=== PATIENT | female | born 2000 | race American Indian/Alaskan Native ===

== ENCOUNTER 2022-03-14 12:33 | Inpatient (IN) | payer OTHER ==
[2022-03-14] MEDS ORDERED: FAMOTIDINE 20 MG/2 ML VIAL IV STA (12:40)
[2022-03-14] MEDS ORDERED: SODIUM CHLORIDE 0.9% 1,000 ML IV STA (12:40)
[2022-03-14] MEDS ORDERED: ONDANSETRON 4 MG/2 ML VIAL IVP STA ×2 (12:40→17:04)
[2022-03-14] MEDS ORDERED: INSULIN REGULAR 100 UNIT/ML VIAL (IV) IV ONE (12:41)
--- NOTE | 2022-03-14 12:48 | ED ---
General Adult HPI - General Chief complaint: Recheck/Abnormal Lab/Rx Stated complaint: hyperglycemia Time Seen by Provider: 03/14/22 12:35 Source: patient, EMS, RN notes reviewed Mode of arrival: EMS Limitations: no limitations - History of Present Illness Initial comments: Patient is a pleasant 22-year-old female presenting to the emergency department with concerns with nausea and vomiting. Onset of symptoms was the past couple of days. Patient has not recently checked her blood sugar. Patient has had similar episodes dozens of times previously associated with DKA and is concerned this is going on again. Patient requests insulin. Patient has nausea and vomiting that remains. No abdominal pain. Otherwise no recent illness.. Patient afebrile - Related Data Home Medications Medication Instructions Recorded Confirmed Insulin Glargine,Hum.rec.anlog 25 units SQ DAILY 03/14/22 03/14/22 [Lantus Solostar Pen] Insulin Lispro [humaLOG Kwikpen] See Protocol SQ TID-W/MEALS 03/14/22 03/14/22 Allergies Allergy/AdvReac Type Severity Reaction Status Date / Time No Known Allergies Allergy Verified 03/14/22 15:02 Review of Systems ROS Statement: Those systems with pertinent positive or pertinent negative responses have been documented in the HPI. ROS Other: All systems not noted in ROS Statement are negative. Constitutional: Denies: fever Eyes: Denies: eye pain ENT: Denies: ear pain Respiratory: Denies: cough Cardiovascular: Denies: chest pain Endocrine: Denies: fatigue Gastrointestinal: Reports: nausea, vomiting Genitourinary: Denies: dysuria Musculoskeletal: Denies: back pain Skin: Denies: rash Neurological: Denies: weakness Past Medical History Past Medical History: Diabetes Mellitus History of Any Multi-Drug Resistant Organisms: None Reported Additional Past Surgical History / Comment(s): Facial Past Psychological History: No Psychological Hx Reported, Schizoaffective Disorder Smoking Status: Current some day smoker Past Alcohol Use History: None Reported Past Drug Use History: Marijuana General Exam Limitations: no limitations General appearance: alert, in no apparent distress Head exam: Present: normocephalic Eye exam: Present: normal appearance ENT exam: Present: normal oropharynx Neck exam: Present: normal inspection Respiratory exam: Present: normal lung sounds bilaterally Cardiovascular Exam: Present: tachycardia GI/Abdominal exam: Present: soft. Absent: tenderness Extremities exam: Present: normal inspection Neurological exam: Present: alert Psychiatric exam: Present: normal affect, normal mood Skin exam: Present: normal color Course Vital Signs 03/14/22 12:37 Temperature 97.8 F Pulse Rate 127 H Respiratory 20 Rate Blood Pressure 115/75 O2 Sat by Pulse 99 Oximetry Medical Decision Making - Medical Decision Making Patient reevaluated and updated. Case was discussed with Dr. Morejon, who will admit covering hospital call. - Lab Data Result diagrams: 03/14/22 13:24 03/14/22 13:24 Lab Results 03/14/22 03/14/22 Range/Units 13:24 13:24 WBC 14.4 H (3.8-10.6) k/uL RBC 4.51 (3.80-5.40) m/uL Hgb 13.3 (11.4-16.0) gm/dL Hct 39.5 (34.0-46.0) % MCV 87.7 (80.0-100.0) fL MCH 29.4 (25.0-35.0) pg MCHC 33.5 (31.0-37.0) g/dL RDW 13.6 (11.5-15.5) % Plt Count 354 (150-450) k/uL MPV 9.1 Neutrophils % 79 % Lymphocytes % 16 % Monocytes % 3 % Eosinophils % 1 % Basophils % 0 % Neutrophils # 11.3 H (1.3-7.7) k/uL Lymphocytes # 2.3 (1.0-4.8) k/uL Monocytes # 0.4 (0-1.0) k/uL Eosinophils # 0.1 (0-0.7) k/uL Basophils # 0.1 (0-0.2) k/uL Sodium 133 L (137-145) mmol/L Potassium 4.7 (3.5-5.1) mmol/L Chloride 97 L (98-107) mmol/L Carbon Dioxide 15 L (22-30) mmol/L Anion Gap 21 mmol/L BUN 24 H (7-17) mg/dL Creatinine 0.73 (0.52-1.04) mg/dL Est GFR (CKD-EPI)AfAm >90 (>60 ml/min/1.73 sqM) Est GFR (CKD-EPI)NonAf >90 (>60 ml/min/1.73 sqM) Glucose 509 H* (74-99) mg/dL Calcium 8.9 (8.4-10.2) mg/dL Total Bilirubin 0.9 (0.2-1.3) mg/dL AST 18 (14-36) U/L ALT 13 (4-34) U/L Alkaline Phosphatase 75 (38-126) U/L Total Protein 6.9 (6.3-8.2) g/dL Albumin 4.5 (3.5-5.0) g/dL Acetone, Qual Positive (Negative) - Radiology Data Radiology results: image reviewed (Chest x-ray shows no acute process) Critical Care Time Critical Care Time: Yes Total Critical Care Time: 31 Disposition Clinical Impression: Diabetic ketoacidosis Disposition: ADMITTED IP TO THIS [facility] Condition: Serious Is patient prescribed a controlled substance at d/c from ED?: No Referrals: None,Stated [Primary Care Provider] - 1-2 days Time of Disposition: 15:29
[2022-03-14 13:34] LABS: Basophils # (A) 0.1 k/uL (0-0.2); Basophils % (A) 0 %; Eosinophils # (A) 0.1 k/uL (0-0.7); Eosinophils % (A) 1 %; HCT 39.5 % (34.0-46.0); HGB 13.3 gm/dL (11.4-16.0); Lymphocytes # (A) 2.3 k/uL (1.0-4.8); Lymphocytes % (A) 16 %; MCH 29.4 pg (25.0-35.0); MCHC 33.5 g/dL (31.0-37.0); MCV 87.7 fL (80.0-100.0); Mean Platelet Volume 9.1; Monocytes # (A) 0.4 k/uL (0-1.0); Monocytes % (A) 3 %; Neutrophils # (A) 11.3 k/uL (1.3-7.7); Neutrophils % (A) 79 %; Platelet Count 354 k/uL (150-450); RBC 4.51 m/uL (3.80-5.40); RDW 13.6 % (11.5-15.5); WBC 14.4 k/uL (3.8-10.6)
[2022-03-14 13:47] LABS: ALT 13 U/L (4-34); AST 18 U/L (14-36); African American GFR (CKD) >90 (>60 ml/min/1.73 sqM); Albumin 4.5 g/dL (3.5-5.0); Alkaline Phosphatase 75 U/L (38-126); Anion Gap 21 mmol/L; Blood Urea Nitrogen 24 mg/dL (7-17); Calcium 8.9 mg/dL (8.4-10.2); Carbon Dioxide 15 mmol/L (22-30); Chloride 97 mmol/L (98-107); Non-African American GFR(CKD) >90 (>60 ml/min/1.73 sqM); Potassium 4.7 mmol/L (3.5-5.1); Sodium 133 mmol/L (137-145); Total Bilirubin 0.9 mg/dL (0.2-1.3); Total Protein 6.9 g/dL (6.3-8.2)
[2022-03-14 13:48] LABS: Glucose 509 mg/dL (74-99)
--- NOTE | 2022-03-14 14:01 | XR ---
EXAMINATION TYPE: XR chest 2V DATE OF EXAM: 03/14/2022 COMPARISON: NONE HISTORY: Weakness TECHNIQUE: Frontal and lateral views of the chest are obtained. FINDINGS: There is no focal air space opacity, pleural effusion, or pneumothorax seen. The cardiac silhouette size is within normal limits. The osseous structures are intact. IMPRESSION: No acute cardiopulmonary process.
[2022-03-14] MEDS ORDERED: SODIUM CHLORIDE 0.9% 1,000 ML IV ONE (15:27)
[2022-03-14] MEDS ORDERED: INSULIN REGULAR 100 UNIT in SODIUM CHLORIDE 0.9% 100 ML IV SCH (15:30)
[2022-03-14 16:13] LABS: African American GFR (CKD) >90 (>60 ml/min/1.73 sqM); Anion Gap 17 mmol/L; Blood Urea Nitrogen 22 mg/dL (7-17); Carbon Dioxide 14 mmol/L (22-30); Chloride 105 mmol/L (98-107); Glucose 323 mg/dL (74-99); Non-African American GFR(CKD) >90 (>60 ml/min/1.73 sqM); Potassium 4.8 mmol/L (3.5-5.1); Sodium 136 mmol/L (137-145)
[2022-03-14 16:20] LABS: Glucose,Whole Blood 340 mg/dL (70-110)
[2022-03-14 16:39] LABS: Glucose,Whole Blood 559 mg/dL (70-110)
[2022-03-14 16:51] LABS: Glucose,Whole Blood 428 mg/dL (70-110)
[2022-03-14 16:51] LABS: Glucose,Whole Blood 524 mg/dL (70-110)
[2022-03-14 17:01] LABS: Glucose,Whole Blood 362 mg/dL (70-110)
[2022-03-14 17:19] LABS: Glucose,Whole Blood 344 mg/dL (70-110)
[2022-03-14 17:21] LABS: Glucose,Whole Blood 348 mg/dL (70-110)
[2022-03-14 17:29] LABS: Glucose,Whole Blood 317 mg/dL (70-110)
[2022-03-14] MEDS: SODIUM CHLORIDE 0.9% 1,000 ML IV SCH (17:30)
[2022-03-14 17:36] LABS: Glucose,Whole Blood 265 mg/dL (70-110)
[2022-03-14 17:54] LABS: Glucose,Whole Blood 257 mg/dL (70-110)
[2022-03-14 18:21] LABS: Glucose,Whole Blood 255 mg/dL (70-110)
[2022-03-14 18:21] LABS: Glucose,Whole Blood 229 mg/dL (70-110)
[2022-03-14] MEDS ORDERED: diphenhydrAMINE 50 MG/ML 1 ML VIAL IVP STA (18:28)
[2022-03-14 18:37] LABS: Glucose,Whole Blood 205 mg/dL (70-110)
[2022-03-14 18:42] LABS: Glucose,Whole Blood 151 mg/dL (70-110)
[2022-03-14] MEDS: DEXTROSE 5%-0.45% NACL 1,000 ML IV SCH (19:07)
[2022-03-14 19:12] LABS: Glucose,Whole Blood 133 mg/dL (70-110)
[2022-03-14 19:18] LABS: ALT 16 U/L (4-34); AST 22 U/L (14-36); African American GFR (CKD) >90 (>60 ml/min/1.73 sqM); Albumin 4.7 g/dL (3.5-5.0); Alkaline Phosphatase 70 U/L (38-126); Anion Gap 16 mmol/L; Blood Urea Nitrogen 22 mg/dL (7-17); Calcium 9.5 mg/dL (8.4-10.2); Carbon Dioxide 15 mmol/L (22-30); Chloride 110 mmol/L (98-107); Glucose 158 mg/dL (74-99); Non-African American GFR(CKD) >90 (>60 ml/min/1.73 sqM); Potassium 3.7 mmol/L (3.5-5.1); Sodium 141 mmol/L (137-145); Total Bilirubin 0.7 mg/dL (0.2-1.3); Total Protein 7.4 g/dL (6.3-8.2)
[2022-03-14 19:39] LABS: Glucose,Whole Blood 151 mg/dL (70-110)
[2022-03-14 19:39] LABS: Glucose,Whole Blood 130 mg/dL (70-110)
[2022-03-14] MEDS: D5-0.45% NACL WITH KCL 20MEQ/L 1,000 ML IV SCH (19:40)
[2022-03-14 20:10] LABS: Glucose,Whole Blood 155 mg/dL (70-110)
[2022-03-14 20:32] LABS: Glucose,Whole Blood 160 mg/dL (70-110)
[2022-03-14] MEDS: INSULIN REGULAR 100 UNIT in SODIUM CHLORIDE 0.9% 100 ML IV SCH (20:36)
[2022-03-14 21:06] LABS: Glucose,Whole Blood 175 mg/dL (70-110)
[2022-03-14 21:57] LABS: African American GFR (CKD) >90 (>60 ml/min/1.73 sqM); Anion Gap 17 mmol/L; Blood Urea Nitrogen 21 mg/dL (7-17); Carbon Dioxide 14 mmol/L (22-30); Chloride 109 mmol/L (98-107); Glucose 170 mg/dL (74-99); Non-African American GFR(CKD) >90 (>60 ml/min/1.73 sqM); Phosphorus 1.8 mg/dL (2.5-4.5); Potassium 3.7 mmol/L (3.5-5.1); Sodium 140 mmol/L (137-145)
[2022-03-14 22:17] LABS: Glucose,Whole Blood 202 mg/dL (70-110)
[2022-03-14 23:17] LABS: Glucose,Whole Blood 208 mg/dL (70-110)
[2022-03-15 00:12] LABS: Glucose,Whole Blood 225 mg/dL (70-110)
[2022-03-15] MEDS: SODIUM CHLORIDE 0.9% 1,000 ML IV SCH ×7 (00:43→17:32)
[2022-03-15] MEDS: D5-0.45% NACL WITH KCL 20MEQ/L 1,000 ML IV SCH ×4 (00:43→22:46)
[2022-03-15 01:22] LABS: Glucose,Whole Blood 227 mg/dL (70-110)
[2022-03-15 02:20] LABS: Glucose,Whole Blood 217 mg/dL (70-110)
[2022-03-15] MEDS: diphenhydrAMINE 50 MG/ML 1 ML VIAL IVP PRN ×4 (02:45→23:00)
[2022-03-15] MEDS: ONDANSETRON 4 MG/2 ML VIAL IVP PRN ×3 (02:45→16:53)
[2022-03-15 02:46] LABS: African American GFR (CKD) >90 (>60 ml/min/1.73 sqM); Anion Gap 15 mmol/L; Blood Urea Nitrogen 18 mg/dL (7-17); Calcium 8.4 mg/dL (8.4-10.2); Carbon Dioxide 14 mmol/L (22-30); Chloride 108 mmol/L (98-107); Glucose 221 mg/dL (74-99); Non-African American GFR(CKD) >90 (>60 ml/min/1.73 sqM); Potassium 4.2 mmol/L (3.5-5.1); Sodium 137 mmol/L (137-145)
--- NOTE | 2022-03-15 03:18 | P.HPIM ---
History of Present Illness H&P Date: 03/14/22 Chief Complaint: Nausea and vomiting Patient is a 22-year-old female with a known history of diabetes type 1 on insulin KwikPen at home, currently a smoker and occasional marijuana use presents to ER with complaints of nausea vomiting for the past 2 days. Apparently patient ran out of her long-acting insulin. Patient has not checked her blood sugar recently. Patient was counseled about DKA and presented to ER. Vomitus mainly nonbilious. Patient denies any complaints of abdominal pain. No fever no chills. No diarrhea. No headache or dizziness or lightheadedness. On admission chest x-ray showed no acute cardiopulmonary process Laboratory showed WBC 14.4 hemoglobin 13.3 and platelets 354 Sodium 133 potassium 4.7 chloride 97 bicarb is 15 BUN 24 and creatinine 0.73 anion gap 21 is 1.2 liver enzymes are not elevated and blood sugar was 409. Patient was started on insulin drip in the ER. Apparently patient was given higher dose of regular insulin by mistake in the ER. Patient is being monitored closely for any hypoglycemic episodes. Review of Systems Constitutional: Patient denies any fever or chills . no Generalized weakness. Abdomen: Patient is complaining of nausea and vomiting. No abd. pain Cardiovascular: Patient denies any chest pain or short of breath no palpitations. Respiratory: patient denied any cough . no sputum production. No shortness of breath Neurologic: Patient denied any numbness or tingling headache. Musculoskeletal: Patient denies any complaints of joint swelling or deformity. Skin: Negative Psychiatric: Negative Endocrine: No heat or cold intolerance. No recent weight gain. Genitourinary: No dysuria or hematuria. All other 14 point ROS negative except the above Past Medical History Past Medical History: Diabetes Mellitus History of Any Multi-Drug Resistant Organisms: None Reported Additional Past Surgical History / Comment(s): Facial Past Psychological History: No Psychological Hx Reported, Schizoaffective Disorder Smoking Status: Current some day smoker Past Alcohol Use History: None Reported Past Drug Use History: Marijuana Medications and Allergies Home Medications Medication Instructions Recorded Confirmed Type Insulin Glargine,Hum.rec.anlog 25 units SQ DAILY 03/14/22 03/14/22 History [Lantus Solostar Pen] Insulin Lispro [humaLOG Kwikpen] See Protocol SQ TID-W/MEALS 03/14/22 03/14/22 History Allergies Allergy/AdvReac Type Severity Reaction Status Date / Time No Known Allergies Allergy Verified 03/14/22 15:02 Physical Exam Vitals: Vital Signs Temp Pulse Resp BP Pulse Ox 03/14/22 16:16 99 18 135/73 100 03/14/22 12:37 97.8 F 127 H 20 115/75 99 Intake and Output 03/14/22 03/14/22 03/14/22 06:59 14:59 22:59 Other: Weight 49.895 kg PHYSICAL EXAMINATION: Patient is lying in the bed, Distress due to nausea and constant retching, awake alert and oriented.. HEENT: Normocephalic. Neck is supple. Pupils reactive. Nostrils clear. Oral cavity is moist. Neck reveals no JVD, carotid bruits, or thyromegaly. CHEST EXAMINATION: Trachea is central. Symmetrical expansion. Lung sheridan clear to auscultation and percussion. CARDIAC: Normal S1, S2 with no gallops. No murmurs ABDOMEN: Soft. Bowel sounds present. Nontender. No organomegaly. No abdominal bruits. Extremities: reveal no edema. No clubbing or cyanosis Neurologically awake, alert, oriented x3 with well-coordinated movements. No focal deficits noted Skin: No rash or skin lesions. Psychiatric: Coperative. Nonsuicidal, Musculoskeletal: No joint swelling or deformity. Normal range of motion. Results CBC & Chem 7: 03/14/22 13:24 03/15/22 02:06 Labs: Abnormal Lab Results - Last 24 Hours (Table) 03/14/22 03/14/22 03/14/22 Range/Units 13:24 13:24 15:47 WBC 14.4 H (3.8-10.6) k/uL Neutrophils # 11.3 H (1.3-7.7) k/uL Sodium 133 L 136 L (137-145) mmol/L Chloride 97 L (98-107) mmol/L Carbon Dioxide 15 L 14 L (22-30) mmol/L BUN 24 H 22 H (7-17) mg/dL Glucose 509 H* 323 H (74-99) mg/dL POC Glucose (mg/dL) (70-110) mg/dL 03/14/22 03/14/22 03/14/22 Range/Units 16:09 16:36 16:39 WBC (3.8-10.6) k/uL Neutrophils # (1.3-7.7) k/uL Sodium (137-145) mmol/L Chloride (98-107) mmol/L Carbon Dioxide (22-30) mmol/L BUN (7-17) mg/dL Glucose (74-99) mg/dL POC Glucose (mg/dL) 340 H 559 H 524 H (70-110) mg/dL 03/14/22 03/14/22 03/14/22 Range/Units 16:49 17:00 17:09 WBC (3.8-10.6) k/uL Neutrophils # (1.3-7.7) k/uL Sodium (137-145) mmol/L Chloride (98-107) mmol/L Carbon Dioxide (22-30) mmol/L BUN (7-17) mg/dL Glucose (74-99) mg/dL POC Glucose (mg/dL) 428 H 362 H 344 H (70-110) mg/dL 03/14/22 03/14/22 03/14/22 Range/Units 17:19 17:27 17:35 WBC (3.8-10.6) k/uL Neutrophils # (1.3-7.7) k/uL Sodium (137-145) mmol/L Chloride (98-107) mmol/L Carbon Dioxide (22-30) mmol/L BUN (7-17) mg/dL Glucose (74-99) mg/dL POC Glucose (mg/dL) 348 H 317 H 265 H (70-110) mg/dL 03/14/22 03/14/22 03/14/22 Range/Units 17:47 17:58 18:10 WBC (3.8-10.6) k/uL Neutrophils # (1.3-7.7) k/uL Sodium (137-145) mmol/L Chloride (98-107) mmol/L Carbon Dioxide (22-30) mmol/L BUN (7-17) mg/dL Glucose (74-99) mg/dL POC Glucose (mg/dL) 257 H 255 H 229 H (70-110) mg/dL 03/14/22 03/14/22 03/14/22 Range/Units 18:24 18:40 19:04 WBC (3.8-10.6) k/uL Neutrophils # (1.3-7.7) k/uL Sodium (137-145) mmol/L Chloride 110 H (98-107) mmol/L Carbon Dioxide 15 L (22-30) mmol/L BUN 22 H (7-17) mg/dL Glucose 158 H (74-99) mg/dL POC Glucose (mg/dL) 205 H 151 H (70-110) mg/dL 03/14/22 03/14/22 03/14/22 Range/Units 19:10 19:20 19:37 WBC (3.8-10.6) k/uL Neutrophils # (1.3-7.7) k/uL Sodium (137-145) mmol/L Chloride (98-107) mmol/L Carbon Dioxide (22-30) mmol/L BUN (7-17) mg/dL Glucose (74-99) mg/dL POC Glucose (mg/dL) 133 H 151 H 130 H (70-110) mg/dL 03/14/22 03/14/22 03/14/22 Range/Units 20:09 20:30 21:04 WBC (3.8-10.6) k/uL Neutrophils # (1.3-7.7) k/uL Sodium (137-145) mmol/L Chloride (98-107) mmol/L Carbon Dioxide (22-30) mmol/L BUN (7-17) mg/dL Glucose (74-99) mg/dL POC Glucose (mg/dL) 155 H 160 H 175 H (70-110) mg/dL Thrombosis Risk Factor Assmnt - DVT/VTE Prophylaxis DVT/VTE Prophylaxis: Pharmacologic Prophylaxis ordered Assessment and Plan Assessment: Acute diabetic ketoacidosis due to lack of insulin use Intractable nausea and vomiting Anion gap metabolic acidosis Hypovolemic hyponatremia Leukocytosis likely reactive Hyperglycemia with uncontrolled diabetes type 1 DVT prophylaxis with heparin subcu Plan: Patient will be continued on insulin drip and IV hydration with normal saline. Patient was given 2 L fluid bolus in the ER. Monitor blood sugar closely. Continue with electrolytes every 4 hourly until anion gap closes. Symptomatic management for nausea and vomiting with Zofran and Pepcid. Continue to follow closely. Discussed with the patient at bedside in detail. Time with Patient: Greater than 30
[2022-03-15 03:21] LABS: Glucose,Whole Blood 190 mg/dL (70-110)
[2022-03-15 04:20] LABS: Glucose,Whole Blood 218 mg/dL (70-110)
[2022-03-15 05:38] LABS: Glucose,Whole Blood 223 mg/dL (70-110)
[2022-03-15 06:24] LABS: Glucose,Whole Blood 214 mg/dL (70-110)
[2022-03-15 07:36] LABS: Glucose,Whole Blood 235 mg/dL (70-110)
[2022-03-15 08:33] LABS: Glucose,Whole Blood 246 mg/dL (70-110)
[2022-03-15 09:19] LABS: Basophils % (A) 0 %; Eosinophils % (A) 0 %; HCT 34.9 % (34.0-46.0); HGB 11.9 gm/dL (11.4-16.0); Lymphocytes # (A) 1.5 k/uL (1.0-4.8); Lymphocytes % (A) 13 %; MCH 29.8 pg (25.0-35.0); MCHC 34.2 g/dL (31.0-37.0); MCV 87.2 fL (80.0-100.0); Mean Platelet Volume 8.6; Monocytes # (A) 0.5 k/uL (0-1.0); Monocytes % (A) 4 %; Neutrophils # (A) 9.9 k/uL (1.3-7.7); Neutrophils % (A) 82 %; Platelet Count 318 k/uL (150-450); RDW 13.4 % (11.5-15.5)
[2022-03-15] MEDS: FAMOTIDINE 20 MG/2 ML VIAL IV SCH ×2 (09:26→23:00)
[2022-03-15 09:33] LABS: Glucose,Whole Blood 221 mg/dL (70-110)
[2022-03-15 09:42] LABS: African American GFR (CKD) >90 (>60 ml/min/1.73 sqM); Anion Gap 14 mmol/L; Blood Urea Nitrogen 11 mg/dL (7-17); Carbon Dioxide 16 mmol/L (22-30); Chloride 106 mmol/L (98-107); Glucose 236 mg/dL (74-99); Non-African American GFR(CKD) >90 (>60 ml/min/1.73 sqM); Potassium 4.1 mmol/L (3.5-5.1); Sodium 136 mmol/L (137-145)
[2022-03-15] MEDS: HEPARIN SODIUM,PORCINE/PF 5,000 UNIT/0.5 ML SYRINGE SQ SCH ×2 (09:45→23:00)
[2022-03-15 10:41] LABS: Glucose,Whole Blood 222 mg/dL (70-110)
[2022-03-15 11:32] LABS: Glucose,Whole Blood 210 mg/dL (70-110)
[2022-03-15 12:27] VITALS: BMI 21.4
[2022-03-15 12:34] LABS: Glucose,Whole Blood 230 mg/dL (70-110)
[2022-03-15 14:00] LABS: Glucose,Whole Blood 184 mg/dL (70-110)
[2022-03-15 14:57] LABS: Glucose,Whole Blood 220 mg/dL (70-110)
[2022-03-15 16:01] LABS: Glucose,Whole Blood 198 mg/dL (70-110)
[2022-03-15 16:35] LABS: African American GFR (CKD) >90 (>60 ml/min/1.73 sqM); Anion Gap 12 mmol/L; Blood Urea Nitrogen 5 mg/dL (7-17); Calcium 8.2 mg/dL (8.4-10.2); Carbon Dioxide 16 mmol/L (22-30); Chloride 106 mmol/L (98-107); Glucose 210 mg/dL (74-99); Non-African American GFR(CKD) >90 (>60 ml/min/1.73 sqM); Potassium 3.8 mmol/L (3.5-5.1); Sodium 134 mmol/L (137-145)
[2022-03-15 17:01] LABS: Glucose,Whole Blood 181 mg/dL (70-110)
[2022-03-15] MEDS: DEXTROSE 5%-0.45% NACL 1,000 ML IV SCH (17:31)
[2022-03-15 18:12] LABS: Glucose,Whole Blood 185 mg/dL (70-110)
[2022-03-15 19:04] LABS: Glucose,Whole Blood 197 mg/dL (70-110)
[2022-03-15 20:12] LABS: Glucose,Whole Blood 200 mg/dL (70-110)
[2022-03-15 20:17] LABS: African American GFR (CKD) >90 (>60 ml/min/1.73 sqM); Anion Gap 10 mmol/L; Blood Urea Nitrogen 4 mg/dL (7-17); Carbon Dioxide 18 mmol/L (22-30); Chloride 106 mmol/L (98-107); Glucose 198 mg/dL (74-99); Non-African American GFR(CKD) >90 (>60 ml/min/1.73 sqM); Potassium 3.5 mmol/L (3.5-5.1); Sodium 134 mmol/L (137-145)
[2022-03-15 21:32] LABS: Glucose,Whole Blood 191 mg/dL (70-110)
[2022-03-15 23:00] LABS: Glucose,Whole Blood 179 mg/dL (70-110)
[2022-03-16 01:16] LABS: African American GFR (CKD) >90 (>60 ml/min/1.73 sqM); Anion Gap 12 mmol/L; Blood Urea Nitrogen 3 mg/dL (7-17); Carbon Dioxide 17 mmol/L (22-30); Chloride 105 mmol/L (98-107); Glucose 184 mg/dL (74-99); Non-African American GFR(CKD) >90 (>60 ml/min/1.73 sqM); Potassium 3.5 mmol/L (3.5-5.1); Sodium 134 mmol/L (137-145)
[2022-03-16 03:56] LABS: Glucose,Whole Blood 184 mg/dL (70-110)
[2022-03-16 05:54] LABS: Glucose,Whole Blood 199 mg/dL (70-110)
[2022-03-16] MEDS: D5-0.45% NACL WITH KCL 20MEQ/L 1,000 ML IV SCH ×2 (06:23→21:04)
[2022-03-16 06:30] LABS: Glucose,Whole Blood 183 mg/dL (70-110)
--- NOTE | 2022-03-16 06:56 | PN ---
PROGRESS NOTE SUBJECTIVE: This is a 22-year-old woman who was admitted with diabetic ketoacidosis, still on insulin drip at this time. No chest pain. No palpitations. No fever. PHYSICAL EXAMINATION: VITAL SIGNS: Pulse is 90, blood pressure 120/60, respirations 15. CHEST: Clear to auscultation. ABDOMEN: Soft. NERVOUS SYSTEM: No focal deficits. LABS: Reviewed. ASSESSMENT: 1. Acute diabetic ketoacidosis. 2. Intractable nausea and vomiting. 3. Electrolyte imbalance. 4. Multiple medical issues. RECOMMENDATIONS: Recommend to continue current management and symptomatic treatment. The patient apparently did not have Lantus for 2 days. We will continue to monitor. Transition orders will be given. Guarded prognosis. Further recommendations to follow. MMODL / IJN: [id number] /
[2022-03-16 07:09] LABS: Glucose,Whole Blood 162 mg/dL (70-110)
[2022-03-16] MEDS: ONDANSETRON 4 MG/2 ML VIAL IVP PRN ×3 (09:06→21:03)
[2022-03-16] MEDS: diphenhydrAMINE 50 MG/ML 1 ML VIAL IVP PRN ×3 (09:06→21:03)
[2022-03-16] MEDS: FAMOTIDINE 20 MG/2 ML VIAL IV SCH ×2 (09:06→21:03)
[2022-03-16] MEDS: INSULIN DETEMIR (LEVEMIR) 100 UNIT/ML SYR SQ SCH (09:06)
[2022-03-16] MEDS: HEPARIN SODIUM,PORCINE/PF 5,000 UNIT/0.5 ML SYRINGE SQ SCH ×2 (09:12→21:04)
[2022-03-16] MEDS: INSULIN REGULAR 100 UNIT in SODIUM CHLORIDE 0.9% 100 ML IV SCH (10:44)
[2022-03-16 12:20] LABS: Glucose,Whole Blood 165 mg/dL (70-110)
[2022-03-16] MEDS: INSULIN ASPART (NovoLOG) 100 UNIT/ML VIAL SQ SCH ×4 (12:20→20:50)
[2022-03-16] MEDS ORDERED: ACETAMINOPHEN TAB 325 MG TAB PO PRN (13:47)
[2022-03-16] MEDS: PANTOPRAZOLE 40 MG/10 ML VIAL IVP SCH ×2 (15:16→21:13)
--- NOTE | 2022-03-16 15:43 | P.PN ---
Subjective Progress Note Date: 03/16/22 This is a 22-year-old female who was recently admitted with DKA and was placed on insulin drip. Transition orders placed today to resume home medications and long acting along with continued Accu-Cheks before meals and at bedtime. Diet was initiated although patient continues to report abdominal discomfort and some nausea. Will continue some fluid hydration and monitoring Accu-Cheks closely with possible discharge in 24 hours. Encouraged oral intake with slow small frequent meals. Patient is afebrile denies chest pain or shortness of breath. Patient denies any vomiting although is having intermittent abdominal pain with some nausea. Will continue Zofran as needed. Review of systems: Constitutional: No reports of fatigue, fever, or chills Cardiovascular: No reports of chest pain or palpitations Respiratory: No reports of shortness of breath or cough GI: reports of nausea, no reports of of vomiting, reports some abdominal pain : No reports of dysuria or retention Neurovascular: reports of generalized weakness, All medications have been reviewed PHYSICAL EXAMINATION: GENERAL: The patient is alert and oriented x4, Well developed, well nourished. HEENT: Pupils are round and equally reacting to light. EOMI. no scleral icterus. No conjunctival pallor. Normocephalic, atraumatic. No pharyngeal erythema. No thyromegaly. CARDIOVASCULAR: S1 and S2 muffled PULMONARY: diminished breath sounds bilaterally with no wheezing or rhonchi noted. ABDOMEN: soft. tender on exam. non-distended, normoactive bowel sounds. No palpable organomegaly. MUSCULOSKELETAL: No joint swelling or deformity. EXTREMITIES: No cyanosis, clubbing, or pedal edema. NEUROLOGICAL: Gross neurological examination did not reveal any focal deficits. SKIN: No rashes. Assessment: Acute diabetic ketoacidosis Intractable nausea and vomiting secondary to above Electrolyte imbalance Diabetes mellitus type 1, insulin-dependent, uncontrolled with hyperglycemia GI prophylaxis DVT prophylaxis Full code Plan: Recommend to continue with current medications and management of DKA. Labs reviewed and improved and will initiate transition orders and resume home dose medications along with Accu-Cheks before meals and at bedtime and sliding scale. Patient with some continued nausea with no vomiting and abdominal discomfort will slowly resume diet and continue gentle IV hydration for now. Recommend close monitoring overnight and tolerance to diet with possible discharge in 24 hours. Patient will need insulins along with testing supplies and strips on discharge. Due to multiple, looks medical issues, prognosis is guarded. The impression and plan of care has been dictated by Ann Lugo, nurse practitioner as directed. Dr. Bradley MD I have performed a history and examination and MDM of this patient, discussed the same with the dictator, and agree with the dictator's assessment and plan as written ,documented as a scribe. Based on total visit time, I have performed more than 50% of the visit. Any additional findings or plans will be noted. Objective - Vital Signs Vital signs: Vital Signs Temp 98.0 F 03/16/22 12:21 Pulse 88 03/16/22 12:21 Resp 16 03/16/22 12:21 BP 134/67 03/16/22 12:21 Pulse Ox 97 03/16/22 12:21 FiO2 Intake & Output 03/15/22 03/16/22 03/16/22 18:59 06:59 18:59 Intake Total 32.298 24.066 15.792 Balance 32.298 24.066 15.792 Weight 49.895 kg Intake: Intake, IV Titration 32.298 24.066 15.792 Amount Insulin Regular 100 unit 32.298 24.066 15.792 In Sodium Chloride 0.9% 100 ml @ 0.1 UNITS/KG/HR 5.039 mls/hr IV .Q20H3M [facility]USTINO Rx#:[id number] Oral 0 0 Other: Voiding Method Toilet Toilet Toilet # Voids 2 1 - Labs CBC & Chem 7: 03/15/22 08:25 03/16/22 00:15 Labs: Abnormal Lab Results - Last 24 Hours (Table) 03/15/22 03/15/22 03/15/22 Range/Units 13:59 14:56 15:58 Sodium (137-145) mmol/L Carbon Dioxide (22-30) mmol/L BUN (7-17) mg/dL Creatinine (0.52-1.04) mg/dL Glucose (74-99) mg/dL POC Glucose (mg/dL) 184 H 220 H 198 H (70-110) mg/dL Calcium (8.4-10.2) mg/dL Phosphorus (2.5-4.5) mg/dL 03/15/22 03/15/22 03/15/22 Range/Units 16:07 17:00 18:11 Sodium 134 L (137-145) mmol/L Carbon Dioxide 16 L (22-30) mmol/L BUN 5 L (7-17) mg/dL Creatinine 0.43 L (0.52-1.04) mg/dL Glucose 210 H (74-99) mg/dL POC Glucose (mg/dL) 181 H 185 H (70-110) mg/dL Calcium 8.2 L (8.4-10.2) mg/dL Phosphorus (2.5-4.5) mg/dL 03/15/22 03/15/22 03/15/22 Range/Units 19:02 19:44 19:44 Sodium 134 L (137-145) mmol/L Carbon Dioxide 18 L (22-30) mmol/L BUN 4 L (7-17) mg/dL Creatinine 0.42 L (0.52-1.04) mg/dL Glucose 198 H (74-99) mg/dL POC Glucose (mg/dL) 197 H (70-110) mg/dL Calcium (8.4-10.2) mg/dL Phosphorus 2.0 L (2.5-4.5) mg/dL 03/15/22 03/15/22 03/15/22 Range/Units 20:10 21:30 22:58 Sodium (137-145) mmol/L Carbon Dioxide (22-30) mmol/L BUN (7-17) mg/dL Creatinine (0.52-1.04) mg/dL Glucose (74-99) mg/dL POC Glucose (mg/dL) 200 H 191 H 179 H (70-110) mg/dL Calcium (8.4-10.2) mg/dL Phosphorus (2.5-4.5) mg/dL 03/16/22 03/16/22 03/16/22 Range/Units 00:15 00:15 03:44 Sodium 134 L (137-145) mmol/L Carbon Dioxide 17 L (22-30) mmol/L BUN 3 L (7-17) mg/dL Creatinine 0.43 L (0.52-1.04) mg/dL Glucose 184 H (74-99) mg/dL POC Glucose (mg/dL) 184 H (70-110) mg/dL Calcium (8.4-10.2) mg/dL Phosphorus 2.0 L (2.5-4.5) mg/dL 03/16/22 03/16/22 03/16/22 Range/Units 05:41 06:25 07:06 Sodium (137-145) mmol/L Carbon Dioxide (22-30) mmol/L BUN (7-17) mg/dL Creatinine (0.52-1.04) mg/dL Glucose (74-99) mg/dL POC Glucose (mg/dL) 199 H 183 H 162 H (70-110) mg/dL Calcium (8.4-10.2) mg/dL Phosphorus (2.5-4.5) mg/dL 03/16/22 Range/Units 12:18 Sodium (137-145) mmol/L Carbon Dioxide (22-30) mmol/L BUN (7-17) mg/dL Creatinine (0.52-1.04) mg/dL Glucose (74-99) mg/dL POC Glucose (mg/dL) 165 H (70-110) mg/dL Calcium (8.4-10.2) mg/dL Phosphorus (2.5-4.5) mg/dL
[2022-03-16 16:44] LABS: Glucose,Whole Blood 174 mg/dL (70-110)
[2022-03-16 20:09] LABS: Glucose,Whole Blood 204 mg/dL (70-110)
[2022-03-17 02:03] LABS: Glucose,Whole Blood 284 mg/dL (70-110)
[2022-03-17] MEDS: ONDANSETRON 4 MG/2 ML VIAL IVP PRN ×4 (02:34→20:19)
[2022-03-17] MEDS: diphenhydrAMINE 50 MG/ML 1 ML VIAL IVP PRN ×4 (02:34→20:18)
[2022-03-17 05:46] LABS: Glucose,Whole Blood 370 mg/dL (70-110)
[2022-03-17] MEDS: INSULIN DETEMIR (LEVEMIR) 100 UNIT/ML SYR SQ SCH (06:21)
[2022-03-17 08:14] LABS: Basophils % (A) 0 %; Eosinophils % (A) 0 %; HCT 39.8 % (34.0-46.0); HGB 13.2 gm/dL (11.4-16.0); Lymphocytes # (A) 1.1 k/uL (1.0-4.8); Lymphocytes % (A) 14 %; MCH 28.7 pg (25.0-35.0); MCHC 33.2 g/dL (31.0-37.0); MCV 86.6 fL (80.0-100.0); Mean Platelet Volume 8.8; Monocytes # (A) 0.4 k/uL (0-1.0); Monocytes % (A) 5 %; Neutrophils # (A) 6.1 k/uL (1.3-7.7); Neutrophils % (A) 79 %; Platelet Count 333 k/uL (150-450); RBC 4.59 m/uL (3.80-5.40); RDW 13.1 % (11.5-15.5); WBC 7.7 k/uL (3.8-10.6)
[2022-03-17] MEDS: FAMOTIDINE 20 MG/2 ML VIAL IV SCH ×2 (08:27→20:18)
[2022-03-17] MEDS: PANTOPRAZOLE 40 MG/10 ML VIAL IVP SCH ×2 (08:27→20:18)
[2022-03-17] MEDS: HEPARIN SODIUM,PORCINE/PF 5,000 UNIT/0.5 ML SYRINGE SQ SCH ×2 (08:27→20:18)
[2022-03-17 08:35] LABS: African American GFR (CKD) >90 (>60 ml/min/1.73 sqM); Anion Gap 15 mmol/L; Blood Urea Nitrogen 5 mg/dL (7-17); Calcium 8.6 mg/dL (8.4-10.2); Carbon Dioxide 21 mmol/L (22-30); Chloride 96 mmol/L (98-107); Glucose 418 mg/dL (74-99); Non-African American GFR(CKD) >90 (>60 ml/min/1.73 sqM); Potassium 4.4 mmol/L (3.5-5.1); Sodium 132 mmol/L (137-145)
[2022-03-17] MEDS: [UNRECOGNIZED DRUG - REMARK] SQ SCH ×4 (10:22→20:19)
[2022-03-17 11:49] LABS: Glucose,Whole Blood 275 mg/dL (70-110)
[2022-03-17 16:03] LABS: Glucose,Whole Blood 276 mg/dL (70-110)
[2022-03-17 16:45] LABS: Glucose,Whole Blood 254 mg/dL (70-110)
[2022-03-17 18:39] LABS: Glucose,Whole Blood 214 mg/dL (70-110)
--- NOTE | 2022-03-17 19:12 | P.PN ---
Subjective Progress Note Date: 03/17/22 This is a 22-year-old female who was recently admitted with DKA and was placed on insulin drip. Transition orders placed today to resume home medications and long acting along with continued Accu-Cheks before meals and at bedtime. Diet was initiated although patient continues to report abdominal discomfort and some nausea. Will continue some fluid hydration and monitoring Accu-Cheks closely with possible discharge in 24 hours. Encouraged oral intake with slow small frequent meals. Patient is afebrile denies chest pain or shortness of breath. Patient denies any vomiting although is having intermittent abdominal pain with some nausea. Will continue Zofran as needed. 03/17/2022 Patient is seen today in follow up and continues with elevated blood sugars. Patient has been refusing sliding scale insulin reporting it makes her sick. Patient is also not eating and encouraged the use of anti-emetics and oral intake. fluids have been discontinued. Home medication pen is at her bedside although has no needles. Script provided as hospital does not store as well. Patient is afebrile and denies any vomiting. Nauseated. Mild abdominal pain. Patient denies chest pain or shortness of breath. Continue accuchecks achs and close monitoring with possible discharge in 24 hours. Review of systems: Constitutional: No reports of fatigue, fever, or chills Cardiovascular: No reports of chest pain or palpitations Respiratory: No reports of shortness of breath or cough GI: reports of nausea, no reports of of vomiting, reports some abdominal pain although somewhat improved : No reports of dysuria or retention Neurovascular: reports of generalized weakness, All medications have been reviewed PHYSICAL EXAMINATION: GENERAL: The patient is alert and oriented x4, Well developed, well nourished. HEENT: Pupils are round and equally reacting to light. EOMI. no scleral icterus. No conjunctival pallor. Normocephalic, atraumatic. No pharyngeal erythema. No thyromegaly. CARDIOVASCULAR: S1 and S2 muffled PULMONARY: diminished breath sounds bilaterally with no wheezing or rhonchi note d. ABDOMEN: soft. tender on exam. non-distended, normoactive bowel sounds. No palpable organomegaly. MUSCULOSKELETAL: No joint swelling or deformity. EXTREMITIES: No cyanosis, clubbing, or pedal edema. NEUROLOGICAL: Gross neurological examination did not reveal any focal deficits. SKIN: No rashes. Assessment: Acute diabetic ketoacidosis Intractable nausea and vomiting secondary to above Electrolyte imbalance Diabetes mellitus type 1, insulin-dependent, uncontrolled with hyperglycemia GI prophylaxis DVT prophylaxis Full code Plan: Recommend to continue with current medications and management of DKA. Labs reviewed and sugars remain elevated. Patient has been refusing sliding scale insulin reporting it makes her sick. Patient does have lispro pen with no needles and script sent to the pharmacy for them. Continue accuchecks achs. Encouraged oral intake as patient also has not been eating reporting she does not have much of an appetite. Encouraged increased activity as tolerated. Will monitor sugars overnight and diet tolerance with possible discharge in 24 hours. Patient will need insulins along with testing supplies and strips on discharge. Due to multiple complex medical issues, prognosis is guarded. The impression and plan of care has been dictated by Ann Lugo, nurse practitioner as directed. Dr. Bradley MD I have performed a history and examination and MDM of this patient, discussed the same with the dictator, and agree with the dictator's assessment and plan as written ,documented as a scribe. Based on total visit time, I have performed more than 50% of the visit. Any additional findings or plans will be noted. Objective - Vital Signs Vital signs: Vital Signs Temp 98.6 F 03/17/22 16:01 Pulse 90 03/17/22 16:01 Resp 16 03/17/22 16:01 BP 132/83 03/17/22 16:01 Pulse Ox 99 03/17/22 16:01 FiO2 Intake & Output 03/16/22 03/17/22 03/17/22 18:59 06:59 18:59 Intake Total 15.792 250 360 Output Total 100 Balance 15.792 150 360 Intake: Intake, IV Titration 15.792 250 Amount D5-0.45% NaCl with KCl 250 20Meq/l 1,000 ml @ 50 mls /hr IV .Q20H [facility] Rx#: [id number] Insulin Regular 100 unit 15.792 In Sodium Chloride 0.9% 100 ml @ 0.1 UNITS/KG/HR 5.039 mls/hr IV .Q20H3M [facility] Rx#:[id number] Oral 0 360 Output: Emesis 100 Other: Voiding Method Toilet Toilet Toilet # Voids 3 1 - Labs CBC & Chem 7: 03/17/22 06:48 03/17/22 06:48 Labs: Abnormal Lab Results - Last 24 Hours (Table) 03/16/22 03/17/22 03/17/22 Range/Units 20:08 02:01 05:45 Sodium (137-145) mmol/L Chloride (98-107) mmol/L Carbon Dioxide (22-30) mmol/L BUN (7-17) mg/dL Glucose (74-99) mg/dL POC Glucose (mg/dL) 204 H 284 H 370 H (70-110) mg/dL 03/17/22 03/17/22 03/17/22 Range/Units 06:48 11:40 15:43 Sodium 132 L (137-145) mmol/L Chloride 96 L (98-107) mmol/L Carbon Dioxide 21 L (22-30) mmol/L BUN 5 L (7-17) mg/dL Glucose 418 H (74-99) mg/dL POC Glucose (mg/dL) 275 H 276 H (70-110) mg/dL 03/17/22 03/17/22 Range/Units 16:39 18:18 Sodium (137-145) mmol/L Chloride (98-107) mmol/L Carbon Dioxide (22-30) mmol/L BUN (7-17) mg/dL Glucose (74-99) mg/dL POC Glucose (mg/dL) 254 H 214 H (70-110) mg/dL
[2022-03-17 19:36] LABS: Glucose,Whole Blood 239 mg/dL (70-110)
[2022-03-18 01:57] LABS: Glucose,Whole Blood 270 mg/dL (70-110)
[2022-03-18 05:53] LABS: Glucose,Whole Blood 295 mg/dL (70-110)
[2022-03-18] MEDS: [UNRECOGNIZED DRUG - REMARK] SQ SCH ×2 (06:32→13:11)
[2022-03-18] MEDS: INSULIN DETEMIR (LEVEMIR) 100 UNIT/ML SYR SQ SCH (06:32)
[2022-03-18 07:58] LABS: Basophils # (A) 0.1 k/uL (0-0.2); Basophils % (A) 1 %; Eosinophils # (A) 0.1 k/uL (0-0.7); Eosinophils % (A) 2 %; HGB 13.3 gm/dL (11.4-16.0); Lymphocytes # (A) 3.1 k/uL (1.0-4.8); Lymphocytes % (A) 50 %; MCH 28.4 pg (25.0-35.0); MCHC 33.3 g/dL (31.0-37.0); MCV 85.3 fL (80.0-100.0); Mean Platelet Volume 8.7; Monocytes # (A) 0.3 k/uL (0-1.0); Monocytes % (A) 5 %; Neutrophils # (A) 2.5 k/uL (1.3-7.7); Neutrophils % (A) 41 %; Platelet Count 289 k/uL (150-450); RBC 4.69 m/uL (3.80-5.40); RDW 13.4 % (11.5-15.5); WBC 6.1 k/uL (3.8-10.6)
[2022-03-18 08:11] LABS: African American GFR (CKD) >90 (>60 ml/min/1.73 sqM); Anion Gap 11 mmol/L; Blood Urea Nitrogen 13 mg/dL (7-17); Calcium 8.5 mg/dL (8.4-10.2); Carbon Dioxide 21 mmol/L (22-30); Chloride 99 mmol/L (98-107); Glucose 309 mg/dL (74-99); Non-African American GFR(CKD) >90 (>60 ml/min/1.73 sqM); Sodium 131 mmol/L (137-145)
[2022-03-18 08:19] LABS: Potassium 4.1 mmol/L (3.5-5.1)
[2022-03-18] MEDS: ONDANSETRON 4 MG/2 ML VIAL IVP PRN (08:23)
[2022-03-18] MEDS: diphenhydrAMINE 50 MG/ML 1 ML VIAL IVP PRN (08:24)
[2022-03-18] MEDS: PANTOPRAZOLE 40 MG/10 ML VIAL IVP SCH (08:24)
[2022-03-18] MEDS: HEPARIN SODIUM,PORCINE/PF 5,000 UNIT/0.5 ML SYRINGE SQ SCH (08:24)
[2022-03-18] MEDS: FAMOTIDINE 20 MG/2 ML VIAL IV SCH (08:24)
[2022-03-18] MEDS ORDERED: bisacodyL 5 MG TABLET.DR PO PRN (10:09)
--- NOTE | 2022-03-18 10:55 | XR ---
EXAMINATION TYPE: XR abdomen acute w cxr DATE OF EXAM: 03/18/2022 CLINICAL HISTORY: Shortness of breath and abdominal pain. TECHNIQUE: Single frontal view of chest is obtained. Supine and upright views of the abdomen are acq uired. COMPARISON: Chest x-ray 4 days ago. FINDINGS: The lungs remain grossly clear without pleural effusion or pneumothorax. Cardiac silhouet te size appears stable and within normal limits. Rounded densities over right humerus likely external to patient. Air-fluid level in nondistended stomach. Some paucity of bowel gas. Scattered gas seen in nondistende d small and large bowel loops. No pneumoperitoneum or suspicious calcification. The osseous struct ures are intact. IMPRESSION: 1. No acute pulmonary process. 2. Overall nonobstructive bowel gas pattern.
[2022-03-18 12:02] LABS: Glucose,Whole Blood 225 mg/dL (70-110)
[2022-03-18] MEDS ORDERED: SIMETHICONE 80 MG CHEWABLE PO PRN (13:22)
[2022-03-18 13:44] VITALS: BP 138/84; PULSE 74; RESP 17; TEMP 98.3
--- NOTE | 2022-03-20 19:25 | P.DS ---
Providers Date of admission: 03/14/22 15:27 Expected date of discharge: 03/18/22 Attending physician: Kamilla Morejon Primary care physician: Stated None Hospital Course: Final Diagnosis Acute diabetic ketoacidosis Intractable nausea and vomiting secondary to above Electrolyte imbalance Diabetes mellitus type 1, insulin-dependent, uncontrolled with hyperglycemia GI prophylaxis DVT prophylaxis Full code Discharge disposition Patient is being discharged in a stable condition with guarded prognosis to home. Patient will follow-up with Dr. Narvaez in the outpatient setting upon discharge. Patient is to follow up with endocrine as scheduled. Continue insulin and close monitoring of blood sugars. Total time taken is greater than 35 minutes. Hospital course This is a 22-year-old female who was recently admitted with acute DKA and being closely monitored. Patient was started on insulin drip. Patient slowly improved and prescriptions for insuling and testing supplies provided as patient reported she was out of. Patient to follow up with endocrine and pcp on discharge. Follow strict diabetic diet and keep a diary of blood sugar readings. Currently no reports of chest pain, shortness of breath, or palpitations. Patient is afebrile. No reports of nausea or vomiting and patient is tolerating diet. Patient will be discharged home today. guarded prognosis. Physical exam: Gen: This is a 22 year old who is awake and alert and oriented x3. Well developed well nourished HEENT: Head is atraumatic, normocephalic. Pupils equal, round. Sclerae is anicteric. NECK: Supple. No JVD. No lymphadenopathy. No thyromegaly. LUNGS: diminished breath sounds with no wheezes or rhonchi. No intercostal retractions. HEART: S1, s2 muffled ABDOMEN: Soft. non distended. Bowel sounds are present. No masses. No tenderness. EXTREMITIES: No pedal edema. No calf tenderness. NEUROLOGICAL: Patient is awake, alert and oriented x3. Cranial nerves 2 through 12 are grossly intact. Please refer to medication reconciliation sheet for a list of medications. The impression and plan of care has been dictated by Ann Lugo, Nurse Practitioner as directed. Ortiz MD I have performed a history and examination and MDM of this patient, discussed the same with the dictator, and agree with the dictator's assessment and plan as written ,documented as a scribe. Based on total visit time, I have performed more than 50% of the visit. Patient Condition at Discharge: Stable Plan - Discharge Summary Discharge Rx Participant: No New Discharge Prescriptions: New Acetaminophen Tab [Tylenol] 650 mg PO Q6HR PRN tab PRN Reason: Fever And/ Or Pain Simethicone [Gas-X] 125 mg PO BID PRN #30 capsule PRN Reason: Bloating Ondansetron Odt [Zofran Odt] 4 mg PO Q8HR PRN #20 tab PRN Reason: Nausea Continue Insulin Lispro [humaLOG Kwikpen] See Protocol SQ TID-W/MEALS 30 Days #5 each Insulin Glargine,Hum.rec.anlog [Lantus Solostar Pen] 25 units SQ DAILY 30 Days #5 each Discharge Medication List Acetaminophen Tab [Tylenol] 650 mg PO Q6HR PRN tab 03/18/22 [Rx] Insulin Glargine,Hum.rec.anlog [Lantus Solostar Pen] 25 units SQ DAILY 30 Days #5 each 03/18/22 [Rx] Insulin Lispro [humaLOG Kwikpen] See Protocol SQ TID-W/MEALS 30 Days #5 each 03/18/22 [Rx] Ondansetron Odt [Zofran Odt] 4 mg PO Q8HR PRN #20 tab 03/18/22 [Rx] Simethicone [Gas-X] 125 mg PO BID PRN #30 capsule 03/18/22 [Rx] Follow up Appointment(s)/Referral(s): Dwain Ludwig MD [REFERRING] - 1 Week (need referral sent from primary) Danae Narvaez MD [STAFF PHYSICIAN] - 1-2 Days (message left with office) Patient Instructions/Handouts: Diabetic Ketoacidosis (DC) Activity/Diet/Wound Care/Special Instructions: Activity Limited until follow-up Follow-up with primary care provider on discharge Follow-up with endocrine on discharge Continue monitoring blood sugars and keep a diary of all readings Continue strict diabetic diet Discharge Disposition: HOME SELF-CARE
== END 2022-03-18 13:42 | disposition home or self-care (01) | DRG 638 ==
LOC: EC 12:33 → 3SCARD 15:27
PROVIDERS: ADMIT Internal Medicine; ATTEND Internal Medicine
DX: E10.10 Type 1 diabetes mellitus with ketoacidosis without coma (principal); E87.1 Hypo-osmolality and hyponatremia; E10.65 Type 1 diabetes mellitus with hyperglycemia; E86.1 Hypovolemia; D72.829 Elevated white blood cell count, unspecified; Z79.4 Long term (current) use of insulin; Z28.310 Unvaccinated for COVID-19; F17.290 Nicotine dependence, other tobacco product, uncomplicated; Z71.3 Dietary counseling and surveillance
CPT/HCPCS: 36415; 71046; 74022; 80048; 80051; 80053; 82009; 82565; 82947; 83036; 84100; 84520; 85025; 96361; 96365; 96366; 96375; 96376; 99291

== ENCOUNTER 2022-10-09 12:53 | Emergency (ER) | payer OTHER ==
[2022-10-09 12:59] VITALS: TEMP 97.1
[2022-10-09] MEDS ORDERED: diphenhydrAMINE 50 MG/ML 1 ML VIAL IVP STA (13:02)
[2022-10-09] MEDS ORDERED: ONDANSETRON 4 MG/2 ML VIAL IVP STA (13:02)
[2022-10-09] MEDS ORDERED: FAMOTIDINE 20 MG/2 ML VIAL IV STA (13:03)
[2022-10-09 13:04] LABS: Glucose,Whole Blood 302 mg/dL (70-110)
--- NOTE | 2022-10-09 13:05 | ED ---
General Adult HPI - General Chief complaint: Recheck/Abnormal Lab/Rx Stated complaint: NAUSEA-VOMITTING Time Seen by Provider: 10/09/22 12:56 Source: patient, EMS, RN notes reviewed Mode of arrival: EMS Limitations: no limitations - History of Present Illness Initial comments: Patient is a pleasant 22-year-old female presenting to the emergency department with nausea vomiting. Onset of symptoms was this morning. Patient does have history of similar symptoms multiple times previously, dozens, associated with DKA and is concerned that is going on again. Patient has some abdominal discomfort. No dysuria. Patient has not taken her insulin in the last 2 days. - Related Data Previous Rx's Medication Instructions Recorded Acetaminophen Tab [Tylenol] 650 mg PO Q6HR PRN tab 03/18/22 Insulin Glargine,Hum.rec.anlog 25 units SQ DAILY 30 Days #5 each 03/18/22 [Lantus Solostar Pen] Insulin Lispro [humaLOG Kwikpen] See Protocol SQ TID-W/MEALS 30 03/18/22 Days #5 each Ondansetron Odt [Zofran Odt] 4 mg PO Q8HR PRN #20 tab 03/18/22 Simethicone [Gas-X] 125 mg PO BID PRN #30 capsule 03/18/22 Metoclopramide HCl [Reglan] 10 mg PO Q6HR PRN #15 tablet 10/09/22 Allergies Allergy/AdvReac Type Severity Reaction Status Date / Time No Known Allergies Allergy Verified 10/09/22 12:59 Review of Systems ROS Statement: Those systems with pertinent positive or pertinent negative responses have been documented in the HPI. ROS Other: All systems not noted in ROS Statement are negative. Constitutional: Denies: fever Eyes: Denies: eye pain ENT: Denies: ear pain Respiratory: Denies: cough Cardiovascular: Denies: chest pain Endocrine: Reports: fatigue Gastrointestinal: Reports: as per HPI, abdominal pain, nausea, vomiting. Denies: diarrhea, constipation Genitourinary: Denies: dysuria Musculoskeletal: Denies: back pain Skin: Denies: rash Past Medical History Past Medical History: Diabetes Mellitus History of Any Multi-Drug Resistant Organisms: None Reported Additional Past Surgical History / Comment(s): Facial Past Anesthesia/Blood Transfusion Reactions: No Reported Reaction Past Psychological History: No Psychological Hx Reported, Schizoaffective Disorder Smoking Status: Current some day smoker Past Alcohol Use History: None Reported Past Drug Use History: Marijuana General Exam Limitations: no limitations General appearance: alert, in no apparent distress Head exam: Present: normocephalic Eye exam: Present: normal appearance ENT exam: Present: normal oropharynx Neck exam: Present: normal inspection Respiratory exam: Present: normal lung sounds bilaterally Cardiovascular Exam: Present: regular rate, normal rhythm GI/Abdominal exam: Present: soft. Absent: tenderness Extremities exam: Present: normal inspection Neurological exam: Present: alert Psychiatric exam: Present: flat affect Skin exam: Present: normal color Course Vital Signs 10/09/22 10/09/22 12:55 13:20 Temperature 97.1 F L Pulse Rate 82 Respiratory 22 Rate Blood Pressure 136/53 134/80 O2 Sat by Pulse 99 Oximetry Medical Decision Making - Medical Decision Making Was pt. sent in by a medical professional or institution (, PA, LOCK SETTER, urgent care, hospital, or [place] health care facility...) When possible be specific @ -No Did you speak to anyone other than the patient for history (EMS, parent, family, police, friend...)? What history was obtained from this source @ -No Did you review nursing and triage notes (agree or disagree)? Why? @ -I reviewed and agree with nursing and triage notes Were old charts reviewed (outside hosp., previous admission, EMS record, old EKG, old radiological studies, urgent care reports/EKG's, [place] health care facility records)? Report findings @ -Previous admission reviewed Differential Diagnosis (chest pain, altered mental status, abdominal pain women, abdominal pain men, vaginal bleeding, weakness, fever, dyspnea, syncope, headache, dizziness, GI bleed, back pain, seizure, CVA, palpatations, mental health)? @ -Differential Abdominal Pain Women: Appendicitis, Cholecystitis, diverticulosis, ischemic bowel, pancreatitis, hepatitis, UTI, gastroenteritis, AAA, incarcerated hernia, bowel obstruction, constipation, inflammatory bowel, hepatitis, peptic ulcer disease, splenic infarction, perforated viscus, vulvitis, ovarian torsion, PID, kidney stone, placenta abruption, this is not meant to be an all-inclusive list EKG interpreted by me (3pts min.). @ -As above X-rays interpreted by me (1pt min.). @ -None done CT interpreted by me (1pt min.). @ -None done U/S interpreted by me (1pt. min.). @ -None done What testing was considered but not performed or refused? (CT, X-rays, U/S, labs)? Why? @ -None What meds were considered but not given or refused? Why? @ -None Did you discuss the management of the patient with other professionals (professionals i.e. Dr., PA, LOCK SETTER, lab, RT, psych nurse, social sciences instructor, activities aide, teacher, budget officer, shelter case manager)? Give summary @ -No Was smoking cessation discussed for >3mins.? @ -No Was critical care preformed (if so, how long)? @ -No Were there social determinants of health that impacted care today? How? (Homelessness, low income, unemployed, alcoholism, drug addiction, transportation, low edu. Level, literacy, decrease access to med. care, [facility], rehab)? @ -No Was there de-escalation of care discussed even if they declined (Discuss DNR or withdrawal of care, Hospice)? DNR status @ -No What co-morbidities impacted this encounter? (DM, HTN, Smoking, COPD, CAD, Cancer, CVA, ARF, Chemo, Hep., AIDS, mental health diagnosis, sleep apnea, morbid obesity)? @ -None Was patient admitted / discharged? Hospital course, mention meds given and route, prescriptions, significant lab abnormalities, going to OR and other pertinent info. @ -Patient reevaluated and resting comfortably in bed. Patient still has nausea. Patient will be provided further nausea medication and fluid bolus and insulin. Patient is not in DKA and can be discharged home. Patient is updated. Undiagnosed new problem with uncertain prognosis? @ -No Drug Therapy requiring intensive monitoring for toxicity (Heparin, Nitro, Insulin, Cardizem)? @ -No Were any procedures done? @ -No Diagnosis/symptom? @ -Vomiting Acute, or Chronic, or Acute on Chronic? @ -Acute Uncomplicated (without systemic symptoms) or Complicated (systemic symptoms)? @ -default Side effects of treatment? @ -No Exacerbation, Progression, or Severe Exacerbation? @ -No Poses a threat to life or bodily function? How? (Chest pain, [place], [place], pneumonia, PE, COPD, DKA, ARF, appy, cholecystitis, CVA, Diverticulitis, Homicidal, Suicidal, threat to staff... and all critical care pts) @ -No - Lab Data Result diagrams: 10/09/22 13:16 10/09/22 13:16 Lab Results 10/09/22 10/09/22 10/09/22 Range/Units 13:01 13:16 13:16 WBC 9.6 (3.8-10.6) k/uL RBC 4.36 (3.80-5.40) m/uL Hgb 12.7 (11.4-16.0) gm/dL Hct 37.9 (34.0-46.0) % MCV 86.8 (80.0-100.0) fL MCH 29.2 (25.0-35.0) pg MCHC 33.6 (31.0-37.0) g/dL RDW 13.0 (11.5-15.5) % Plt Count 365 (150-450) k/uL MPV 7.9 Neutrophils % 86 % Lymphocytes % 11 % Monocytes % 2 % Eosinophils % 0 % Basophils % 0 % Neutrophils # 8.2 H (1.3-7.7) k/uL Lymphocytes # 1.0 (1.0-4.8) k/uL Monocytes # 0.2 (0-1.0) k/uL Eosinophils # 0.0 (0-0.7) k/uL Basophils # 0.0 (0-0.2) k/uL Sodium 136 L (137-145) mmol/L Potassium 3.9 (3.5-5.1) mmol/L Chloride 100 (98-107) mmol/L Carbon Dioxide 18 L (22-30) mmol/L Anion Gap 18 mmol/L BUN 18 H (7-17) mg/dL Creatinine 0.50 L (0.52-1.04) mg/dL Est GFR (CKD-EPI)AfAm >90 (>60 ml/min/1.73 sqM) Est GFR (CKD-EPI)NonAf >90 (>60 ml/min/1.73 sqM) Glucose 321 H (74-99) mg/dL POC Glucose (mg/dL) 302 H (70-110) mg/dL POC Glu Tubing Tester ID Megan Key T Calcium 9.5 (8.4-10.2) mg/dL Total Bilirubin 0.6 (0.2-1.3) mg/dL AST 18 (14-36) U/L ALT 16 (4-34) U/L Alkaline Phosphatase 89 (38-126) U/L Total Protein 7.4 (6.3-8.2) g/dL Albumin 4.5 (3.5-5.0) g/dL Amylase 231 H (30-110) U/L Lipase 80 (23-300) U/L HCG, Quant <2.4 mIU/mL Acetone, Qual Negative (Negative) 10/09/22 Range/Units 14:28 WBC (3.8-10.6) k/uL RBC (3.80-5.40) m/uL Hgb (11.4-16.0) gm/dL Hct (34.0-46.0) % MCV (80.0-100.0) fL MCH (25.0-35.0) pg MCHC (31.0-37.0) g/dL RDW (11.5-15.5) % Plt Count (150-450) k/uL MPV Neutrophils % % Lymphocytes % % Monocytes % % Eosinophils % % Basophils % % Neutrophils # (1.3-7.7) k/uL Lymphocytes # (1.0-4.8) k/uL Monocytes # (0-1.0) k/uL Eosinophils # (0-0.7) k/uL Basophils # (0-0.2) k/uL Sodium (137-145) mmol/L Potassium (3.5-5.1) mmol/L Chloride (98-107) mmol/L Carbon Dioxide (22-30) mmol/L Anion Gap mmol/L BUN (7-17) mg/dL Creatinine (0.52-1.04) mg/dL Est GFR (CKD-EPI)AfAm (>60 ml/min/1.73 sqM) Est GFR (CKD-EPI)NonAf (>60 ml/min/1.73 sqM) Glucose (74-99) mg/dL POC Glucose (mg/dL) 356 H (70-110) mg/dL POC Glu Tubing Tester [facility] Calcium (8.4-10.2) mg/dL Total Bilirubin (0.2-1.3) mg/dL AST (14-36) U/L ALT (4-34) U/L Alkaline Phosphatase (38-126) U/L Total Protein (6.3-8.2) g/dL Albumin (3.5-5.0) g/dL Amylase (30-110) U/L Lipase (23-300) U/L HCG, Quant mIU/mL Acetone, Qual (Negative) Disposition Clinical Impression: Vomiting Disposition: HOME SELF-CARE Condition: Stable Instructions (If sedation given, give patient instructions): Acute Nausea and Vomiting (ED) Additional Instructions: Please do follow-up to primary care physician in the next day or 2 for recheck. Prescription for Reglan has been sent to pharmacy as needed. Return for not tolerating fluids, uncontrolled sugars, worsening symptoms or other concerns. Do not miss your insulin doses. Prescriptions: Metoclopramide HCl [Reglan] 10 mg PO Q6HR PRN #15 tablet PRN Reason: Nausea Is patient prescribed a controlled substance at d/c from ED?: No Referrals: Marty Craft MD [STAFF PHYSICIAN] - 1-2 days Time of Disposition: 14:38
[2022-10-09 13:28] LABS: Basophils % (A) 0 %; Eosinophils % (A) 0 %; HCT 37.9 % (34.0-46.0); HGB 12.7 gm/dL (11.4-16.0); Lymphocytes % (A) 11 %; MCH 29.2 pg (25.0-35.0); MCHC 33.6 g/dL (31.0-37.0); MCV 86.8 fL (80.0-100.0); Mean Platelet Volume 7.9; Monocytes # (A) 0.2 k/uL (0-1.0); Monocytes % (A) 2 %; Neutrophils # (A) 8.2 k/uL (1.3-7.7); Neutrophils % (A) 86 %; Platelet Count 365 k/uL (150-450); RBC 4.36 m/uL (3.80-5.40); WBC 9.6 k/uL (3.8-10.6)
[2022-10-09 13:44] LABS: ALT 16 U/L (4-34); AST 18 U/L (14-36); African American GFR (CKD) >90 (>60 ml/min/1.73 sqM); Albumin 4.5 g/dL (3.5-5.0); Alkaline Phosphatase 89 U/L (38-126); Amylase 231 U/L (30-110); Anion Gap 18 mmol/L; Blood Urea Nitrogen 18 mg/dL (7-17); Calcium 9.5 mg/dL (8.4-10.2); Carbon Dioxide 18 mmol/L (22-30); Chloride 100 mmol/L (98-107); Glucose 321 mg/dL (74-99); Lipase 80 U/L (23-300); Non-African American GFR(CKD) >90 (>60 ml/min/1.73 sqM); Potassium 3.9 mmol/L (3.5-5.1); Sodium 136 mmol/L (137-145); Total Bilirubin 0.6 mg/dL (0.2-1.3); Total Protein 7.4 g/dL (6.3-8.2)
[2022-10-09 14:00] LABS: HCG,Quantitative Serum <2.4 mIU/mL
[2022-10-09] MEDS ORDERED: SODIUM CHLORIDE 0.9% 1,000 ML IV STA (14:02)
[2022-10-09 14:30] LABS: Glucose,Whole Blood 356 mg/dL (70-110)
[2022-10-09] MEDS ORDERED: INSULIN REGULAR 100 UNIT/ML VIAL (IV) IV ONE (14:34)
[2022-10-09] MEDS ORDERED: METOCLOPRAMIDE 5 MG/ML 2 ML VIAL IVP STA ×2 (14:34→15:15)
[2022-10-09 14:38] LABS: Appearance,Urine Clear (Clear); Bilirubin,Urine Negative (Negative); Blood,Urine Negative (Negative); Color,Urine Yellow; Glucose,Urine (UA) 4+ (Negative); Leukocyte Esterase,Urine Negative (Negative); Nitrite,Urine Negative (Negative); PH, Urine 5.5 (5.0-8.0); Protein,Urine Trace (Negative); Specific Gravity,Urine 1.032 (1.001-1.035); Urobilinogen,Urine <2.0 mg/dL (<2.0)
[2022-10-09 14:54] LABS: Ketones,Urine 4+ (Negative)
--- NOTE | 2022-10-09 15:46 | ED ---
Medical Decision Making - Medical Decision Making Change in patient medication - Lab Data Result diagrams: 10/09/22 13:16 10/09/22 13:16 Lab Results 10/09/22 10/09/22 10/09/22 Range/Units 13:01 13:16 13:16 WBC 9.6 (3.8-10.6) k/uL RBC 4.36 (3.80-5.40) m/uL Hgb 12.7 (11.4-16.0) gm/dL Hct 37.9 (34.0-46.0) % MCV 86.8 (80.0-100.0) fL MCH 29.2 (25.0-35.0) pg MCHC 33.6 (31.0-37.0) g/dL RDW 13.0 (11.5-15.5) % Plt Count 365 (150-450) k/uL MPV 7.9 Neutrophils % 86 % Lymphocytes % 11 % Monocytes % 2 % Eosinophils % 0 % Basophils % 0 % Neutrophils # 8.2 H (1.3-7.7) k/uL Lymphocytes # 1.0 (1.0-4.8) k/uL Monocytes # 0.2 (0-1.0) k/uL Eosinophils # 0.0 (0-0.7) k/uL Basophils # 0.0 (0-0.2) k/uL Sodium (137-145) mmol/L Potassium (3.5-5.1) mmol/L Chloride (98-107) mmol/L Carbon Dioxide (22-30) mmol/L Anion Gap mmol/L BUN (7-17) mg/dL Creatinine (0.52-1.04) mg/dL Est GFR (CKD-EPI)AfAm (>60 ml/min/1.73 sqM) Est GFR (CKD-EPI)NonAf (>60 ml/min/1.73 sqM) Glucose (74-99) mg/dL POC Glucose (mg/dL) 302 H (70-110) mg/dL POC Glu Airport Ramp Supervisor ID [facility] Calcium (8.4-10.2) mg/dL Total Bilirubin (0.2-1.3) mg/dL AST (14-36) U/L ALT (4-34) U/L Alkaline Phosphatase (38-126) U/L Total Protein (6.3-8.2) g/dL Albumin (3.5-5.0) g/dL Amylase (30-110) U/L Lipase (23-300) U/L HCG, Quant mIU/mL Urine Color Yellow Urine Appearance Clear (Clear) Urine pH 5.5 (5.0-8.0) Ur Specific [place] 1.032 (1.001-1.035) Urine Protein Trace H (Negative) Urine Glucose (UA) 4+ H (Negative) Urine Ketones 4+ H (Negative) Urine Blood Negative (Negative) Urine Nitrite Negative (Negative) Urine Bilirubin Negative (Negative) Urine Urobilinogen <2.0 (<2.0) mg/dL Ur Leukocyte Esterase Negative (Negative) Acetone, Qual (Negative) 10/09/22 10/09/22 Range/Units 13:16 14:28 WBC (3.8-10.6) k/uL RBC (3.80-5.40) m/uL Hgb (11.4-16.0) gm/dL Hct (34.0-46.0) % MCV (80.0-100.0) fL MCH (25.0-35.0) pg MCHC (31.0-37.0) g/dL RDW (11.5-15.5) % Plt Count (150-450) k/uL MPV Neutrophils % % Lymphocytes % % Monocytes % % Eosinophils % % Basophils % % Neutrophils # (1.3-7.7) k/uL Lymphocytes # (1.0-4.8) k/uL Monocytes # (0-1.0) k/uL Eosinophils # (0-0.7) k/uL Basophils # (0-0.2) k/uL Sodium 136 L (137-145) mmol/L Potassium 3.9 (3.5-5.1) mmol/L Chloride 100 (98-107) mmol/L Carbon Dioxide 18 L (22-30) mmol/L Anion Gap 18 mmol/L BUN 18 H (7-17) mg/dL Creatinine 0.50 L (0.52-1.04) mg/dL Est GFR (CKD-EPI)AfAm >90 (>60 ml/min/1.73 sqM) Est GFR (CKD-EPI)NonAf >90 (>60 ml/min/1.73 sqM) Glucose 321 H (74-99) mg/dL POC Glucose (mg/dL) 356 H (70-110) mg/dL POC Glu Airport Ramp Supervisor ID Megan Key T Calcium 9.5 (8.4-10.2) mg/dL Total Bilirubin 0.6 (0.2-1.3) mg/dL AST 18 (14-36) U/L ALT 16 (4-34) U/L Alkaline Phosphatase 89 (38-126) U/L Total Protein 7.4 (6.3-8.2) g/dL Albumin 4.5 (3.5-5.0) g/dL Amylase 231 H (30-110) U/L Lipase 80 (23-300) U/L HCG, Quant <2.4 mIU/mL Urine Color Urine Appearance (Clear) Urine pH (5.0-8.0) Ur Specific [place] (1.001-1.035) Urine Protein (Negative) Urine Glucose (UA) (Negative) Urine Ketones (Negative) Urine Blood (Negative) Urine Nitrite (Negative) Urine Bilirubin (Negative) Urine Urobilinogen (<2.0) mg/dL Ur Leukocyte Esterase (Negative) Acetone, Qual Negative (Negative) Disposition Clinical Impression: Vomiting Disposition: HOME SELF-CARE Condition: Stable Instructions (If sedation given, give patient instructions): Acute Nausea and Vomiting (ED) Additional Instructions: Please do follow-up to primary care physician in the next day or 2 for recheck. Prescription for Reglan has been sent to pharmacy as needed. Return for not tolerating fluids, uncontrolled sugars, worsening symptoms or other concerns. Do not miss your insulin doses. Prescriptions: Insulin Glargine [Lantus Vial] 20 unit SQ DAILY #10 ml Metoclopramide HCl [Reglan] 10 mg PO Q6HR PRN #15 tablet PRN Reason: Nausea Ondansetron Odt [Zofran Odt] 4 mg PO Q8HR PRN #10 tab PRN Reason: Nausea Is patient prescribed a controlled substance at d/c from ED?: No Referrals: Marty Craft MD [STAFF PHYSICIAN] - 1-2 days
[2022-10-09 16:07] VITALS: BP 109/71; PULSE 98; RESP 18
== END 2022-10-09 16:05 | disposition home or self-care (01) ==
LOC: EC 12:53
DX: R11.2 Nausea with vomiting, unspecified (principal); E11.9 Type 2 diabetes mellitus without complications; F17.200 Nicotine dependence, unspecified, uncomplicated; F12.90 Cannabis use, unspecified, uncomplicated
CPT/HCPCS: 36415; 80053; 82150; 82009; 83690; 85025; 81003; 84702; 99285; 96374; 96375 ×3; 96361; J1200; J2765; J2405

== ENCOUNTER 2022-10-10 14:15 | Inpatient (IN) | payer OTHER ==
[2022-10-10 14:26] LABS: Glucose,Whole Blood 410 mg/dL (70-110)
[2022-10-10] MEDS ORDERED: SODIUM CHLORIDE 0.9% 1,000 ML IV STA (14:27)
[2022-10-10] MEDS ORDERED: INSULIN REGULAR 100 UNIT/ML VIAL (IV) IV ONE (14:28)
[2022-10-10] MEDS ORDERED: PANTOPRAZOLE 40 MG/10 ML VIAL IVP STA (14:36)
--- NOTE | 2022-10-10 14:38 | ED ---
General Adult HPI - General Chief complaint: Recheck/Abnormal Lab/Rx Stated complaint: Hyperglycemia Time Seen by Provider: 10/10/22 14:17 Source: patient, EMS, RN notes reviewed Mode of arrival: EMS Limitations: no limitations - History of Present Illness Initial comments: Patient is a pleasant 22-year-old female returning emergency department with remy sea vomiting. Onset of symptoms was yesterday. Patient was feeling somewhat better after emergency department however started getting worse following it yesterday. Symptoms worsen more this morning. Patient was vomiting this morning. Patient is not as nauseous at this time. Patient feels dehydrated and that her blood sugar may be high. Patient states she was not able to have her medications filled. - Related Data Previous Rx's Medication Instructions Recorded Acetaminophen Tab [Tylenol] 650 mg PO Q6HR PRN tab 03/18/22 Insulin Glargine,Hum.rec.anlog 25 units SQ DAILY 30 Days #5 each 03/18/22 [Lantus Solostar Pen] Insulin Lispro [humaLOG Kwikpen] See Protocol SQ TID-W/MEALS 30 03/18/22 Days #5 each Ondansetron Odt [Zofran Odt] 4 mg PO Q8HR PRN #20 tab 03/18/22 Simethicone [Gas-X] 125 mg PO BID PRN #30 capsule 03/18/22 Insulin Glargine [Lantus Vial] 20 unit SQ DAILY #10 ml 10/09/22 Metoclopramide HCl [Reglan] 10 mg PO Q6HR PRN #15 tablet 10/09/22 Ondansetron Odt [Zofran Odt] 4 mg PO Q8HR PRN #10 tab 10/09/22 Allergies Allergy/AdvReac Type Severity Reaction Status Date / Time No Known Allergies Allergy Verified 10/10/22 14:22 Review of Systems ROS Statement: Those systems with pertinent positive or pertinent negative responses have been documented in the HPI. ROS Other: All systems not noted in ROS Statement are negative. Constitutional: Denies: fever Eyes: Denies: eye pain ENT: Denies: ear pain Respiratory: Denies: cough, dyspnea Cardiovascular: Denies: chest pain Endocrine: Reports: fatigue Gastrointestinal: Reports: abdominal pain, nausea, vomiting. Denies: diarrhea, constipation Genitourinary: Denies: dysuria Musculoskeletal: Denies: back pain Skin: Denies: rash Neurological: Denies: weakness Past Medical History Past Medical History: Diabetes Mellitus History of Any Multi-Drug Resistant Organisms: None Reported Additional Past Surgical History / Comment(s): Facial Past Anesthesia/Blood Transfusion Reactions: No Reported Reaction Past Psychological History: No Psychological Hx Reported, Schizoaffective Disorder Smoking Status: Current some day smoker Past Alcohol Use History: None Reported Past Drug Use History: Marijuana General Exam Limitations: no limitations General appearance: alert, in no apparent distress Head exam: Present: normocephalic Eye exam: Present: normal appearance ENT exam: Present: normal oropharynx Neck exam: Present: normal inspection Respiratory exam: Present: normal lung sounds bilaterally Cardiovascular Exam: Present: tachycardia GI/Abdominal exam: Present: soft. Absent: distended, tenderness, guarding, rebound, rigid, pulsatile mass Extremities exam: Present: normal inspection. Absent: pedal edema, calf tenderness Neurological exam: Present: alert Psychiatric exam: Present: normal affect, normal mood Skin exam: Present: normal color Course Vital Signs 10/10/22 10/10/22 14:16 15:31 Temperature 97.9 F Pulse Rate 117 H 126 H Respiratory 20 20 Rate Blood Pressure 133/62 128/67 O2 Sat by Pulse 100 96 Oximetry EKG Findings - EKG Results: EKG: interpreted by ERMD (Nonspecific ST-T), sinus rhythm, normal axis, normal QRS EKG shows: tachycardia Medical Decision Making - Medical Decision Making Was pt. sent in by a medical professional or institution (, PA, [employer], urgent care, hospital, or [place] [facility] facility...) When possible be specific @ -No Did you speak to anyone other than the patient for history (EMS, parent, family, police, friend...)? What history was obtained from this source @ -No Did you review nursing and triage notes (agree or disagree)? Why? @ -I reviewed and agree with nursing and triage notes Were old charts reviewed (outside hosp., previous admission, EMS record, old EKG, old radiological studies, urgent care reports/EKG's, [place] health [facility] facility records)? Report findings @ -Reviewed previous admission Differential Diagnosis (chest pain, altered mental status, abdominal pain women, abdominal pain men, vaginal bleeding, weakness, fever, dyspnea, syncope, headache, dizziness, GI bleed, back pain, seizure, CVA, palpatations, mental health)? @ -Differential Abdominal Pain Women: Appendicitis, Cholecystitis, diverticulosis, ischemic bowel, pancreatitis, hepatitis, UTI, gastroenteritis, AAA, incarcerated hernia, bowel obstruction, constipation, inflammatory bowel, hepatitis, peptic ulcer disease, splenic infarction, perforated viscus, vulvitis, ovarian torsion, PID, kidney stone, placenta abruption, this is not meant to be an all-inclusive list EKG interpreted by me (3pts min.). @ -As above X-rays interpreted by me (1pt min.). @ -None done CT interpreted by me (1pt min.). @ -None done U/S interpreted by me (1pt. min.). @ -None done What testing was considered but not performed or refused? (CT, X-rays, U/S, la bs)? Why? @ -None What meds were considered but not given or refused? Why? @ -None Did you discuss the management of the patient with other professionals (professionals i.e. , PA, [employer], lab, RT, psych nurse, clinical social worker, lead assistant manager, teacher, control systems drafting officer, case specialist)? Give summary @ -No Was smoking cessation discussed for >3mins.? @ -No Was critical care preformed (if so, how long)? @ -33 minutes critical care time Were there social determinants of health that impacted care today? How? (Homelessness, low income, unemployed, alcoholism, drug addiction, transportation, low edu. Level, literacy, decrease access to med. care, long-term, rehab)? @ -No Was there de-escalation of care discussed even if they declined (Discuss DNR or withdrawal of care, Hospice)? DNR status @ -No What co-morbidities impacted this encounter? (DM, HTN, Smoking, COPD, CAD, Cancer, CVA, ARF, Chemo, Hep., AIDS, mental health diagnosis, sleep apnea, morb id obesity)? @ -None Was patient admitted / discharged? Hospital course, mention meds given and route, prescriptions, significant lab abnormalities, going to OR and other pertinent info. @ -Patient reevaluated without much change in symptoms. Patient was updated on results and plan. Case was discussed with Dr. Valencia, who will admit covering hospital call. Undiagnosed new problem with uncertain prognosis? @ -No Drug Therapy requiring intensive monitoring for toxicity (Heparin, Nitro, Insulin, Cardizem)? @ -Patient will be placed on insulin drip and this will need monitoring Were any procedures done? @ -No Diagnosis/symptom? @ -Diabetic ketoacidosis Acute, or Chronic, or Acute on Chronic? @ -Acute Uncomplicated (without systemic symptoms) or Complicated (systemic symptoms)? @ -default Side effects of treatment? @ -No Exacerbation, Progression, or Severe Exacerbation? @ -No Poses a threat to life or bodily function? How? (Chest pain, USA, ND, pneumonia, PE, COPD, DKA, ARF, appy, cholecystitis, CVA, Diverticulitis, Homicidal, Suicidal, threat to staff... and all critical care pts) @ -No - Lab Data Result diagrams: 10/10/22 14:48 10/10/22 14:48 Lab Results 10/10/22 10/10/22 10/10/22 Range/Units 14:25 14:48 14:48 WBC 17.6 H (3.8-10.6) k/uL RBC 4.14 (3.80-5.40) m/uL Hgb 12.1 (11.4-16.0) gm/dL Hct 37.9 (34.0-46.0) % MCV 91.4 (80.0-100.0) fL MCH 29.3 (25.0-35.0) pg MCHC 32.1 (31.0-37.0) g/dL RDW 13.4 (11.5-15.5) % Plt Count 400 (150-450) k/uL MPV 8.2 Neutrophils % 86 % Lymphocytes % 7 % Monocytes % 6 % Eosinophils % 0 % Basophils % 0 % Neutrophils # 15.1 H (1.3-7.7) k/uL Lymphocytes # 1.2 (1.0-4.8) k/uL Monocytes # 1.0 (0-1.0) k/uL Eosinophils # 0.0 (0-0.7) k/uL Basophils # 0.0 (0-0.2) k/uL Sodium 135 L (137-145) mmol/L Potassium 4.8 (3.5-5.1) mmol/L Chloride 103 (98-107) mmol/L Carbon Dioxide 9 L* (22-30) mmol/L Anion Gap 23 mmol/L BUN 20 H (7-17) mg/dL Creatinine 0.77 (0.52-1.04) mg/dL Est GFR (CKD-EPI)AfAm >90 (>60 ml/min/1.73 sqM) Est GFR (CKD-EPI)NonAf >90 (>60 ml/min/1.73 sqM) Glucose 428 H (74-99) mg/dL POC Glucose (mg/dL) 410 H (70-110) mg/dL POC Glu Manager Loss Prevention DARINEL Yesi MeganGregorio Plasma Lactic Acid [place] (0.7-2.0) mmol/L Calcium 9.6 (8.4-10.2) mg/dL Magnesium 1.8 (1.6-2.3) mg/dL Total Bilirubin 0.9 (0.2-1.3) mg/dL AST 17 (14-36) U/L ALT 16 (4-34) U/L Alkaline Phosphatase 91 (38-126) U/L Total Protein 7.5 (6.3-8.2) g/dL Albumin 4.6 (3.5-5.0) g/dL Urine Color Urine Appearance (Clear) Urine pH (5.0-8.0) Ur Specific [place] (1.001-1.035) Urine Protein (Negative) Urine Glucose (UA) (Negative) Urine Ketones (Negative) Urine Blood (Negative) Urine Nitrite (Negative) Urine Bilirubin (Negative) Urine Urobilinogen (<2.0) mg/dL Ur Leukocyte Esterase (Negative) 10/10/22 10/10/22 Range/Units 14:48 14:48 WBC (3.8-10.6) k/uL RBC (3.80-5.40) m/uL Hgb (11.4-16.0) gm/dL Hct (34.0-46.0) % MCV (80.0-100.0) fL MCH (25.0-35.0) pg MCHC (31.0-37.0) g/dL RDW (11.5-15.5) % Plt Count (150-450) k/uL MPV Neutrophils % % Lymphocytes % % Monocytes % % Eosinophils % % Basophils % % Neutrophils # (1.3-7.7) k/uL Lymphocytes # (1.0-4.8) k/uL Monocytes # (0-1.0) k/uL Eosinophils # (0-0.7) k/uL Basophils # (0-0.2) k/uL Sodium (137-145) mmol/L Potassium (3.5-5.1) mmol/L Chloride (98-107) mmol/L Carbon Dioxide (22-30) mmol/L Anion Gap mmol/L BUN (7-17) mg/dL Creatinine (0.52-1.04) mg/dL Est GFR (CKD-EPI)AfAm (>60 ml/min/1.73 sqM) Est GFR (CKD-EPI)NonAf (>60 ml/min/1.73 sqM) Glucose (74-99) mg/dL POC Glucose (mg/dL) (70-110) mg/dL POC Glu Manager Loss Prevention ID Plasma Lactic Acid [place] 1.7 (0.7-2.0) mmol/L Calcium (8.4-10.2) mg/dL Magnesium (1.6-2.3) mg/dL Total Bilirubin (0.2-1.3) mg/dL AST (14-36) U/L ALT (4-34) U/L Alkaline Phosphatase (38-126) U/L Total Protein (6.3-8.2) g/dL Albumin (3.5-5.0) g/dL Urine Color Light Yellow Urine Appearance Clear (Clear) Urine pH 5.5 (5.0-8.0) Ur Specific [place] 1.027 (1.001-1.035) Urine Protein Negative (Negative) Urine Glucose (UA) 4+ H (Negative) Urine Ketones 4+ H (Negative) Urine Blood Negative (Negative) Urine Nitrite Negative (Negative) Urine Bilirubin Negative (Negative) Urine Urobilinogen <2.0 (<2.0) mg/dL Ur Leukocyte Esterase Negative (Negative) Critical Care Time Critical Care Time: Yes Total Critical Care Time: 33 Disposition Clinical Impression: Diabetic ketoacidosis Disposition: ADMITTED IP TO THIS HOSP Is patient prescribed a controlled substance at d/c from ED?: No Referrals: None,Stated [REFERRING] - 1-2 days Time of Disposition: 16:19
[2022-10-10 15:06] LABS: Basophils % (A) 0 %; Eosinophils % (A) 0 %; HCT 37.9 % (34.0-46.0); HGB 12.1 gm/dL (11.4-16.0); Lymphocytes # (A) 1.2 k/uL (1.0-4.8); Lymphocytes % (A) 7 %; MCH 29.3 pg (25.0-35.0); MCHC 32.1 g/dL (31.0-37.0); MCV 91.4 fL (80.0-100.0); Mean Platelet Volume 8.2; Monocytes % (A) 6 %; Neutrophils # (A) 15.1 k/uL (1.3-7.7); Neutrophils % (A) 86 %; Platelet Count 400 k/uL (150-450); RBC 4.14 m/uL (3.80-5.40); RDW 13.4 % (11.5-15.5); WBC 17.6 k/uL (3.8-10.6)
[2022-10-10 15:07] LABS: Appearance,Urine Clear (Clear); Bilirubin,Urine Negative (Negative); Blood,Urine Negative (Negative); Color,Urine Light Yellow; Glucose,Urine (UA) 4+ (Negative); Leukocyte Esterase,Urine Negative (Negative); Nitrite,Urine Negative (Negative); PH, Urine 5.5 (5.0-8.0); Protein,Urine Negative (Negative); Specific Gravity,Urine 1.027 (1.001-1.035); Urobilinogen,Urine <2.0 mg/dL (<2.0)
[2022-10-10 15:11] LABS: Ketones,Urine 4+ (Negative)
[2022-10-10 15:25] LABS: ALT 16 U/L (4-34); AST 17 U/L (14-36); African American GFR (CKD) >90 (>60 ml/min/1.73 sqM); Albumin 4.6 g/dL (3.5-5.0); Alkaline Phosphatase 91 U/L (38-126); Anion Gap 23 mmol/L; Blood Urea Nitrogen 20 mg/dL (7-17); Calcium 9.6 mg/dL (8.4-10.2); Chloride 103 mmol/L (98-107); Glucose 428 mg/dL (74-99); Magnesium 1.8 mg/dL (1.6-2.3); Non-African American GFR(CKD) >90 (>60 ml/min/1.73 sqM); Potassium 4.8 mmol/L (3.5-5.1); Sodium 135 mmol/L (137-145); Total Bilirubin 0.9 mg/dL (0.2-1.3); Total Protein 7.5 g/dL (6.3-8.2)
[2022-10-10 15:49] LABS: Carbon Dioxide 9 mmol/L (22-30)
[2022-10-10] MEDS ORDERED: SODIUM CHLORIDE 0.9% 1,000 ML IV ONE (16:19)
[2022-10-10] MEDS ORDERED: INSULIN REGULAR 100 UNIT in SODIUM CHLORIDE 0.9% 100 ML IV SCH (16:30)
[2022-10-10] MEDS ORDERED: SODIUM CHLORIDE 0.9% 1,000 ML IV SCH (16:30)
[2022-10-10 16:48] LABS: Glucose,Whole Blood 308 mg/dL (70-110)
[2022-10-10 17:24] LABS: Glucose,Whole Blood 246 mg/dL (70-110)
[2022-10-10] MEDS ORDERED: NALOXONE 0.4 MG/ML 1 ML VIAL IV PRN (17:40)
[2022-10-10] MEDS ORDERED: ACETAMINOPHEN TAB 325 MG TAB PO PRN (17:40)
--- NOTE | 2022-10-10 17:43 | P.HPIM ---
History of Present Illness H&P Date: 10/10/22 Patient is a 22-year-old female with history of type 1 diabetes presenting with abdominal pain, and nausea and vomiting. She claims that she has been dealing with type 1 diabetes since age 9. She normally takes 25 units of Lantus at night and use a sliding scale insulin pre-meal. She has not been taking her Lantus over the last 2 days as she ran out. She has also been noticing increased gastric reflux as well as abdominal pain. She has only been using her sliding scale insulin. She noted that her blood sugars were in the 300s, and she presented to the emergency. In the emergency, her labs were not consistent with DKA and she was then sent home. However, her symptoms continued to worsen and she presented again in the emergency. She currently denies any fevers, chil ls, chest pain, shortness of breath, or urinary complaints. She does have significant nausea and vomiting as well as abdominal pain. In the ED, vital signs were significant for tachycardia up to 126, temperature 97.9, blood pressure 133/62, respiratory rate 20, saturating at 100 percent on room air. WBC 17.6, sodium 135, bicarb 19, anion gap 23, creatinine 0.77, blood sugars 428, urine positive for ketones. EKG independently interpreted, shows sinus tachycardia. Patient being admitted for DKA, on IV insulin. Pertinent positives and negatives as discussed in HPI, a complete review of sys tems was performed and all other systems are negative. Patient seen and examined at bedside. Vital signs reviewed General: nontoxic, no distress, appears at stated age Derm: warm, dry Head: atraumatic, normocephalic, symmetric Eyes: EOMI, no lid lag, anicteric sclera, pupils equal round reactive to light ENT: Nose and ears atraumatic Neck: No thyromegaly, supple Mouth: no lip lesion, mucus membranes moist Cardiovascular: S1S2 reg, tachycardic, no murmur, no edema Lungs: clear to auscultation bilateral, no rhonchi, no rales, no wheeze, no accessory muscle use Abdominal: soft, diffusely, mildly tender to palpation, no guarding, no appreciable organomegaly Ext: no gross muscle atrophy, muscle strength muscle strength 5 out of 5 in all 4 extremities, no contractures Neuro: CN II-XII grossly intact Psych: Alert, oriented, appropriate affect Assessment/Plan: Active: Diabetic ketoacidosis in type I diabetic High anion gap metabolic acidosis Leukocytosis Sinus tachycardia -On IV insulin drip -Needs close monitoring of blood sugars -Will be transitioned to subcu insulin when patient's blood sugars are around 250, anion gap has closed, and also patient has been able to tolerate oral intake -Continue IV fluids of normal saline 200 mL an hour -Protonix IV 40 mg daily -Zofran as needed for nausea -BMP every 4 hours -EKG independently interpreted, shows sinus tachycardia The patient is admitted with an anticipated greater than 2 midnight stay as an inpatient status for evaluation of diabetic ketoacidosis. Surrogate decision-maker: Family CODE STATUS: Full Code DVT prophylaxis: Lovenox Anticipated discharge date: Pending clinical course Anticipated discharge place: Pending Clinical course A total of 65 minutes was spent on the care of this complex patient more than 50% of the time was spent in counseling and care coordination. Past Medical History Past Medical History: Diabetes Mellitus History of Any Multi-Drug Resistant Organisms: None Reported Additional Past Surgical History / Comment(s): Facial Past Anesthesia/Blood Transfusion Reactions: No Reported Reaction Past Psychological History: No Psychological Hx Reported, Schizoaffective Disorder Smoking Status: Current some day smoker Past Alcohol Use History: None Reported Past Drug Use History: Marijuana Medications and Allergies Home Medications Medication Instructions Recorded Confirmed Type Insulin Lispro [humaLOG Kwikpen] See Protocol SQ TID-W/MEALS 30 03/18/22 10/10/22 Rx Days #5 each Ondansetron Odt [Zofran Odt] 4 mg PO Q8HR PRN #10 tab 10/09/22 10/10/22 Rx Insulin Glargine,Hum.rec.anlog 25 units SQ HS@2200 10/10/22 10/10/22 History [Lantus Solostar Pen] Allergies Allergy/AdvReac Type Severity Reaction Status Date / Time No Known Allergies Allergy Verified 10/10/22 16:53 Physical Exam Vitals: Vital Signs Temp Pulse Resp BP Pulse Ox 10/10/22 17:23 97.6 F 96 16 102/60 100 10/10/22 16:45 113 H 17 101/57 98 10/10/22 15:31 126 H 20 128/67 96 10/10/22 14:16 97.9 F 117 H 20 133/62 100 Intake and Output 10/10/22 10/10/22 10/10/22 06:59 14:59 22:59 Other: Weight 49.895 kg Results CBC & Chem 7: 10/10/22 14:48 10/10/22 14:48 Labs: Abnormal Lab Results - Last 24 Hours (Table) 10/10/22 10/10/22 10/10/22 Range/Units 14:25 14:48 14:48 WBC 17.6 H (3.8-10.6) k/uL Neutrophils # 15.1 H (1.3-7.7) k/uL Sodium 135 L (137-145) mmol/L Carbon Dioxide 9 L* (22-30) mmol/L BUN 20 H (7-17) mg/dL Glucose 428 H (74-99) mg/dL POC Glucose (mg/dL) 410 H (70-110) mg/dL Urine Glucose (UA) (Negative) Urine Ketones (Negative) 10/10/22 10/10/22 10/10/22 Range/Units 14:48 16:42 17:20 WBC (3.8-10.6) k/uL Neutrophils # (1.3-7.7) k/uL Sodium (137-145) mmol/L Carbon Dioxide (22-30) mmol/L BUN (7-17) mg/dL Glucose (74-99) mg/dL POC Glucose (mg/dL) 308 H 246 H (70-110) mg/dL Urine Glucose (UA) 4+ H (Negative) Urine Ketones 4+ H (Negative)
[2022-10-10 17:48] LABS: African American GFR (CKD) >90 (>60 ml/min/1.73 sqM); Anion Gap 18 mmol/L; Blood Urea Nitrogen 18 mg/dL (7-17); Carbon Dioxide 10 mmol/L (22-30); Chloride 111 mmol/L (98-107); Glucose 248 mg/dL (74-99); Non-African American GFR(CKD) >90 (>60 ml/min/1.73 sqM); Sodium 139 mmol/L (137-145)
[2022-10-10 18:12] LABS: Glucose,Whole Blood 188 mg/dL (70-110)
[2022-10-10] MEDS: D5-0.45% NACL WITH KCL 20MEQ/L 1,000 ML IV SCH (19:02)
[2022-10-10 19:15] LABS: Glucose,Whole Blood 139 mg/dL (70-110)
[2022-10-10] MEDS ORDERED: diphenhydrAMINE 50 MG/ML 1 ML VIAL IVP STA (19:18)
[2022-10-10] MEDS ORDERED: ONDANSETRON 4 MG/2 ML VIAL IVP STA (19:18)
[2022-10-10 20:21] LABS: Glucose,Whole Blood 149 mg/dL (70-110)
[2022-10-10 21:26] LABS: Glucose,Whole Blood 149 mg/dL (70-110)
[2022-10-10 22:44] LABS: Glucose,Whole Blood 158 mg/dL (70-110)
[2022-10-10 22:44] LABS: African American GFR (CKD) >90 (>60 ml/min/1.73 sqM); Anion Gap 10 mmol/L; Carbon Dioxide 16 mmol/L (22-30); Chloride 111 mmol/L (98-107); Glucose 148 mg/dL (74-99); Non-African American GFR(CKD) >90 (>60 ml/min/1.73 sqM); Phosphorus 1.9 mg/dL (2.5-4.5); Sodium 137 mmol/L (137-145)
[2022-10-11 00:07] LABS: Glucose,Whole Blood 151 mg/dL (70-110)
[2022-10-11 02:02] LABS: Glucose,Whole Blood 100 mg/dL (70-110)
[2022-10-11 02:27] LABS: African American GFR (CKD) >90 (>60 ml/min/1.73 sqM); Anion Gap 9 mmol/L; Blood Urea Nitrogen 14 mg/dL (7-17); Carbon Dioxide 17 mmol/L (22-30); Chloride 110 mmol/L (98-107); Glucose 126 mg/dL (74-99); Non-African American GFR(CKD) >90 (>60 ml/min/1.73 sqM); Phosphorus 1.8 mg/dL (2.5-4.5); Potassium 3.9 mmol/L (3.5-5.1); Sodium 136 mmol/L (137-145)
[2022-10-11] MEDS: D5-0.45% NACL WITH KCL 20MEQ/L 1,000 ML IV SCH ×5 (02:38→23:53)
[2022-10-11 03:20] LABS: Glucose,Whole Blood 90 mg/dL (70-110)
[2022-10-11 04:27] LABS: Glucose,Whole Blood 106 mg/dL (70-110)
[2022-10-11 05:58] LABS: Basophils % (A) 0 %; Eosinophils % (A) 0 %; HGB 10.8 gm/dL (11.4-16.0); Lymphocytes # (A) 1.8 k/uL (1.0-4.8); Lymphocytes % (A) 16 %; MCH 29.5 pg (25.0-35.0); MCHC 32.8 g/dL (31.0-37.0); MCV 89.9 fL (80.0-100.0); Mean Platelet Volume 8.5; Monocytes # (A) 0.5 k/uL (0-1.0); Monocytes % (A) 5 %; Neutrophils # (A) 8.6 k/uL (1.3-7.7); Neutrophils % (A) 77 %; Platelet Count 328 k/uL (150-450); RBC 3.67 m/uL (3.80-5.40); RDW 13.3 % (11.5-15.5); WBC 11.2 k/uL (3.8-10.6)
[2022-10-11] MEDS ORDERED: INSULIN NPH 100 UNIT/ML 10 ML VIAL SQ ONE (06:00)
[2022-10-11 06:20] LABS: African American GFR (CKD) >90 (>60 ml/min/1.73 sqM); Anion Gap 11 mmol/L; Blood Urea Nitrogen 12 mg/dL (7-17); Calcium 8.3 mg/dL (8.4-10.2); Carbon Dioxide 16 mmol/L (22-30); Chloride 110 mmol/L (98-107); Glucose 102 mg/dL (74-99); Non-African American GFR(CKD) >90 (>60 ml/min/1.73 sqM); Potassium 3.9 mmol/L (3.5-5.1); Sodium 137 mmol/L (137-145)
[2022-10-11 06:35] LABS: Glucose,Whole Blood 129 mg/dL (70-110)
[2022-10-11] MEDS ORDERED: INSULIN ASPART (NovoLOG) 100 UNIT/ML VIAL SQ SCH ×2 (07:30)
[2022-10-11 08:36] LABS: Glucose,Whole Blood 189 mg/dL (70-110)
[2022-10-11] MEDS: ENOXAPARIN 40 MG/0.4 ML SYRINGE SQ SCH (08:37)
[2022-10-11] MEDS ORDERED: PANTOPRAZOLE 40 MG/10 ML VIAL IVP SCH (09:00)
[2022-10-11] MEDS: INSULIN DETEMIR (LEVEMIR) 100 UNIT/ML SYR SQ SCH (09:04)
[2022-10-11] MEDS: FAMOTIDINE 20 MG/2 ML VIAL IV SCH ×2 (09:04→21:19)
[2022-10-11] MEDS: ONDANSETRON 4 MG/2 ML VIAL IVP PRN ×3 (10:42→23:53)
[2022-10-11] MEDS ORDERED: diphenhydrAMINE 50 MG/ML 1 ML VIAL IVP STA (11:04)
[2022-10-11] MEDS: INSULIN SQ SCH ×2 (11:33→17:01)
[2022-10-11] MEDS: INSULIN LISPRO 100 UNIT/ML SQ SCH ×2 (11:33→17:01)
[2022-10-11 11:34] LABS: Glucose,Whole Blood 211 mg/dL (70-110)
--- NOTE | 2022-10-11 12:08 | P.PN ---
Subjective Progress Note Date: 10/11/22 Hospital Course: 22-year-old female with history of type 1 diabetes presenting with abdominal pain, and nausea and vomiting. In the ED, vital signs were significant for tachycardia up to 126, temperature 97.9, blood pressure 133/62, respiratory rate 20, saturating at 100 percent on room air. WBC 17.6, sodium 135, bicarb 19, anion gap 23, creatinine 0.77, blood sugars 428, urine positive for ketones. EKG independently interpreted, shows sinus tachycardia. Patient being admitted for DKA, on IV insulin. Now transitioned to subcu insulin. Subjective: Patient seen and examined at bedside. No acute events overnight. Still continues to have nausea and vomiting. Denies any other complaints. Pertinent positives and negatives as discussed above, a complete review of systems was performed and all other systems are negative. Vitals Signs Reviewed. General: nontoxic, no distress, appears at stated age Derm: warm, dry Head: atraumatic, normocephalic, symmetric Eyes: EOMI, no lid lag, anicteric sclera Mouth: no lip lesion, mucus membranes moist Cardiovascular: S1S2 reg, no murmur Lungs: CTA bilateral, no rhonchi, no rales , no accessory muscle use Abdominal: soft, nontender to palpation, no guarding, no appreciable organomegaly Ext: no gross muscle atrophy, no edema, no contractures Neuro: CN II-XI grossly intact, no focal neuro deficits Psych: Alert, oriented, appropriate affect Data Reviewed Today: Pertinent Labs: WBC 11.2, hemoglobin 10.8, bicarbonate 16, anion gap 11, creatinine 0.55, blood sugars range between 102-189 Imaging: None today Assessment and Plan: Diabetic ketoacidosis in type I diabetic High anion gap metabolic acidosis, resolved Leukocytosis, improving Sinus tachycardia, resolved -Now on Levemir 15 units at night, Humalog per sliding scale -On D5 half-normal saline at 1 50 mL an hour -Protonix IV 40 mg daily -Zofran as needed for nausea DVT ppx: Lovenox Code status: Full code Anticipated discharge place: Home Anticipated discharge time: Tomorrow Objective - Vital Signs Vital signs: Vital Signs Temp 98.3 F 10/11/22 08:42 Pulse 91 10/11/22 11:30 Resp 17 10/11/22 11:30 BP 138/83 10/11/22 11:30 Pulse Ox 100 10/11/22 11:30 FiO2 Intake & Output 10/10/22 10/11/22 10/11/22 18:59 06:59 18:59 Intake Total 33.065 Balance 33.065 Weight 49.895 kg Intake: Intake, IV Titration 33.065 Amount Insulin Regular 100 unit 33.065 In Sodium Chloride 0.9% 100 ml @ 0.1 UNITS/KG/HR 5.039 mls/hr IV .Q20H3M [facility] Rx#:[id number] Other: Voiding Method Toilet # Voids 1 - Labs CBC & Chem 7: 10/11/22 05:41 10/11/22 05:41 Labs: Abnormal Lab Results - Last 24 Hours (Table) 10/10/22 10/10/22 10/10/22 Range/Units 14:25 14:48 14:48 WBC 17.6 H (3.8-10.6) k/uL RBC (3.80-5.40) m/uL Hgb (11.4-16.0) gm/dL Hct (34.0-46.0) % Neutrophils # 15.1 H (1.3-7.7) k/uL Sodium 135 L (137-145) mmol/L Chloride (98-107) mmol/L Carbon Dioxide 9 L* (22-30) mmol/L BUN 20 H (7-17) mg/dL Glucose 428 H (74-99) mg/dL POC Glucose (mg/dL) 410 H (70-110) mg/dL Calcium (8.4-10.2) mg/dL Phosphorus (2.5-4.5) mg/dL Urine Glucose (UA) (Negative) Urine Ketones (Negative) 10/10/22 10/10/22 10/10/22 Range/Units 14:48 16:42 17:20 WBC (3.8-10.6) k/uL RBC (3.80-5.40) m/uL Hgb (11.4-16.0) gm/dL Hct (34.0-46.0) % Neutrophils # (1.3-7.7) k/uL Sodium (137-145) mmol/L Chloride (98-107) mmol/L Carbon Dioxide (22-30) mmol/L BUN (7-17) mg/dL Glucose (74-99) mg/dL POC Glucose (mg/dL) 308 H 246 H (70-110) mg/dL Calcium (8.4-10.2) mg/dL Phosphorus (2.5-4.5) mg/dL Urine Glucose (UA) 4+ H (Negative) Urine Ketones 4+ H (Negative) 10/10/22 10/10/22 10/10/22 Range/Units 17:25 17:25 18:11 WBC (3.8-10.6) k/uL RBC (3.80-5.40) m/uL Hgb (11.4-16.0) gm/dL Hct (34.0-46.0) % Neutrophils # (1.3-7.7) k/uL Sodium (137-145) mmol/L Chloride 111 H (98-107) mmol/L Carbon Dioxide 10 L (22-30) mmol/L BUN 18 H (7-17) mg/dL Glucose 248 H (74-99) mg/dL POC Glucose (mg/dL) 188 H (70-110) mg/dL Calcium (8.4-10.2) mg/dL Phosphorus 1.9 L (2.5-4.5) mg/dL Urine Glucose (UA) (Negative) Urine Ketones (Negative) 10/10/22 10/10/22 10/10/22 Range/Units 19:13 20:19 21:15 WBC (3.8-10.6) k/uL RBC (3.80-5.40) m/uL Hgb (11.4-16.0) gm/dL Hct (34.0-46.0) % Neutrophils # (1.3-7.7) k/uL Sodium (137-145) mmol/L Chloride 111 H (98-107) mmol/L Carbon Dioxide 16 L (22-30) mmol/L BUN (7-17) mg/dL Glucose 148 H (74-99) mg/dL POC Glucose (mg/dL) 139 H 149 H (70-110) mg/dL Calcium (8.4-10.2) mg/dL Phosphorus 1.9 L (2.5-4.5) mg/dL Urine Glucose (UA) (Negative) Urine Ketones (Negative) 10/10/22 10/10/2210/11/23 Range/Units 21:25 22:42 00:05 WBC (3.8-10.6) k/uL RBC (3.80-5.40) m/uL Hgb (11.4-16.0) gm/dL Hct (34.0-46.0) % Neutrophils # (1.3-7.7) k/uL Sodium (137-145) mmol/L Chloride (98-107) mmol/L Carbon Dioxide (22-30) mmol/L BUN (7-17) mg/dL Glucose (74-99) mg/dL POC Glucose (mg/dL) 149 H 158 H 151 H (70-110) mg/dL Calcium (8.4-10.2) mg/dL Phosphorus (2.5-4.5) mg/dL Urine Glucose (UA) (Negative) Urine Ketones (Negative) 10/11/22 10/11/22 10/11/22 Range/Units 01:10 05:41 05:41 WBC 11.2 H (3.8-10.6) k/uL RBC 3.67 L (3.80-5.40) m/uL Hgb 10.8 L (11.4-16.0) gm/dL Hct 33.0 L (34.0-46.0) % Neutrophils # 8.6 H (1.3-7.7) k/uL Sodium 136 L (137-145) mmol/L Chloride 110 H 110 H (98-107) mmol/L Carbon Dioxide 17 L 16 L (22-30) mmol/L BUN (7-17) mg/dL Glucose 126 H 102 H (74-99) mg/dL POC Glucose (mg/dL) (70-110) mg/dL Calcium 8.3 L (8.4-10.2) mg/dL Phosphorus 1.8 L (2.5-4.5) mg/dL Urine Glucose (UA) (Negative) Urine Ketones (Negative) 10/11/22 10/11/22 10/11/22 Range/Units 06:33 08:35 11:32 WBC (3.8-10.6) k/uL RBC (3.80-5.40) m/uL Hgb (11.4-16.0) gm/dL Hct (34.0-46.0) % Neutrophils # (1.3-7.7) k/uL Sodium (137-145) mmol/L Chloride (98-107) mmol/L Carbon Dioxide (22-30) mmol/L BUN (7-17) mg/dL Glucose (74-99) mg/dL POC Glucose (mg/dL) 129 H 189 H 211 H (70-110) mg/dL Calcium (8.4-10.2) mg/dL Phosphorus (2.5-4.5) mg/dL Urine Glucose (UA) (Negative) Urine Ketones (Negative)
[2022-10-11 12:30] VITALS: BMI 21.4
[2022-10-11 16:43] LABS: Glucose,Whole Blood 241 mg/dL (70-110)
[2022-10-11] MEDS: diphenhydrAMINE 50 MG/ML 1 ML VIAL IVP PRN ×2 (16:59→23:53)
[2022-10-12 05:14] VITALS: PULSE 81; TEMP 98.6
[2022-10-12 06:32] LABS: Glucose,Whole Blood 295 mg/dL (70-110)
[2022-10-12] MEDS: D5-0.45% NACL WITH KCL 20MEQ/L 1,000 ML IV SCH (07:03)
[2022-10-12] MEDS: INSULIN SQ SCH ×2 (07:04→11:54)
[2022-10-12] MEDS: INSULIN LISPRO 100 UNIT/ML SQ SCH ×2 (07:04→11:54)
[2022-10-12] MEDS: INSULIN DETEMIR (LEVEMIR) 100 UNIT/ML SYR SQ SCH (07:04)
[2022-10-12] MEDS: ONDANSETRON 4 MG/2 ML VIAL IVP PRN (07:06)
[2022-10-12] MEDS: diphenhydrAMINE 50 MG/ML 1 ML VIAL IVP PRN (07:06)
[2022-10-12] MEDS: FAMOTIDINE 20 MG/2 ML VIAL IV SCH (08:48)
[2022-10-12] MEDS: ENOXAPARIN 40 MG/0.4 ML SYRINGE SQ SCH (08:48)
[2022-10-12 10:20] VITALS: RESP 17
--- NOTE | 2022-10-12 10:23 | P.DS ---
Providers Date of admission: 10/10/22 16:19 Expected date of discharge: 10/12/22 Attending physician: Cabrera Martinez MD Primary care physician: Physician Nonstaff Hospital Course: Assessment: Diabetic ketoacidosis in type I diabetic High anion gap metabolic acidosis, resolved Leukocytosis, improving Sinus tachycardia, resolved Hospital Course: 22-year-old female with history of type 1 diabetes presenting with abdominal pain, and nausea and vomiting. In the ED, vital signs were significant for tachycardia up to 126, temperature 97.9, blood pressure 133/62, respiratory rate 20, saturating at 100 percent on room air. WBC 17.6, sodium 135, bicarb 19, anion gap 23, creatinine 0.77, blood sugars 428, urine positive for ketones. EKG independently interpreted, shows sinus tachycardia. Patient was admitted for DKA, on IV insulin. She was transitioned to subcu insulin, and was tolerating PO and gap remained closed on SQ insulin. She was discharged home with instructions to continue insulin regimen and f/u with PCP. I spent 32 minutes coordinating this discharge on 10/12. Gen: awake, alert HEENT: normocephalic, atraumatic, good hearing acuity, moist mucous membranes Resp: good air exchange, breathing comfortably with no accessory muscle use CVS: good distal perfusion x 4, GI: soft, NTTP, ND : no SPT, no CVAT, charles catheter not present MSK: no pitting edema, no clubbing Neuro: non-focal, moving all extremities Psych: cooperative, euthymic mood Patient Condition at Discharge: Good Plan - Discharge Summary New Discharge Prescriptions: New Famotidine [Pepcid] 20 mg PO BID PRN #30 tablet PRN Reason: Indigestion Continue Insulin Lispro [humaLOG Kwikpen] See Protocol SQ TID-W/MEALS 30 Days #5 each Ondansetron Odt [Zofran ODT] 4 mg PO Q8HR PRN #10 tab PRN Reason: Nausea Changed Insulin Glargine,Hum.rec.anlog [Lantus Solostar Pen] 20 units SQ HS@2200 #0 Discharge Medication List Insulin Lispro [humaLOG Kwikpen] See Protocol SQ TID-W/MEALS 30 Days #5 each 03/18/22 [Rx] Ondansetron Odt [Zofran ODT] 4 mg PO Q8HR PRN #10 tab 10/09/22 [Rx] Famotidine [Pepcid] 20 mg PO BID PRN #30 tablet 10/12/22 [Rx] Insulin Glargine,Hum.rec.anlog [Lantus Solostar Pen] 20 units SQ HS@2200 #0 10/12/22 [Rx] Follow up Appointment(s)/Referral(s): None,Stated [REFERRING] - 1-2 days Discharge Disposition: HOME SELF-CARE
[2022-10-12 10:33] LABS: African American GFR (CKD) >90 (>60 ml/min/1.73 sqM); Anion Gap 11 mmol/L; Blood Urea Nitrogen 5 mg/dL (7-17); Calcium 8.7 mg/dL (8.4-10.2); Carbon Dioxide 22 mmol/L (22-30); Chloride 99 mmol/L (98-107); Glucose 254 mg/dL (74-99); Non-African American GFR(CKD) >90 (>60 ml/min/1.73 sqM); Potassium 3.7 mmol/L (3.5-5.1); Sodium 132 mmol/L (137-145)
[2022-10-12 11:45] LABS: Glucose,Whole Blood 238 mg/dL (70-110)
[2022-10-12 12:13] VITALS: BP 132/83
[2022-10-12 12:37] LABS: Glucose,Whole Blood 225 mg/dL (70-110)
== END 2022-10-12 13:00 | disposition home or self-care (01) | DRG 420 ==
LOC: EC 14:15 → 3SCARD 16:19
PROVIDERS: ADMIT Student in an Organized Health Care Education/Training Program; ATTEND Student in an Organized Health Care Education/Training Program
DX: E10.10 Type 1 diabetes mellitus with ketoacidosis without coma (principal); Z79.4 Long term (current) use of insulin; F25.9 Schizoaffective disorder, unspecified; Z28.310 Unvaccinated for COVID-19; K21.9 Gastro-esophageal reflux disease without esophagitis; D72.829 Elevated white blood cell count, unspecified; R00.0 Tachycardia, unspecified; F17.200 Nicotine dependence, unspecified, uncomplicated; Z71.6 Tobacco abuse counseling
CPT/HCPCS: 36415; 80048; 80051; 80053; 81003; 82009; 82565; 82947; 83605; 83735; 84100; 84520; 85025; 93005; 96361; 96372; 96374; 96375; 99291

== ENCOUNTER 2022-10-13 10:49 | Inpatient (IN) | payer OTHER ==
[2022-10-13 11:39] LABS: Appearance,Urine Clear (Clear); Bilirubin,Urine Negative (Negative); Blood,Urine Negative (Negative); Color,Urine Light Yellow; Glucose,Urine (UA) 4+ (Negative); Leukocyte Esterase,Urine Negative (Negative); Nitrite,Urine Negative (Negative); Protein,Urine Negative (Negative); Urobilinogen,Urine <2.0 mg/dL (<2.0)
[2022-10-13 12:18] LABS: Ketones,Urine 4+ (Negative)
--- NOTE | 2022-10-13 13:17 | ED ---
Nausea/Vomiting/Diarrhea HPI - General Source: patient, EMS, RN notes reviewed Mode of arrival: EMS Limitations: no limitations <David Saavedra - Last Filed: 10/13/22 13:15> - History of Present Illness MD complaint: nausea, vomiting Onset/Timin -: days(s) Description of Vomiting: food contents Associated Abdominal Pain: No Radiation: none Quality: cramping Improves with: none Worsens with: none Associated Symptoms: denies other symptoms <Jone Odell - Last Filed: 10/18/22 06:19> - General Chief complaint: Nausea/Vomiting/Diarrhea Stated complaint: hyperglycemia Time Seen by Provider: 10/13/22 12:40 - History of Present Illness Initial comments: 22-year-old female presents emergency from chief complaint of hyperglycemia. Patient states that her blood sugar has been very labile. Patient states that she has been in the hospital recently with hyperglycemia. Patient states it was elevated over 300 today. She gave herself insulin while in the emergency department. Patient does admit to nausea vomiting. (David Saavedra) Patient is 22-year-old woman history of diabetes, presenting with intractable vomiting. She had been admitted in the hospital until yesterday related to DKA. She states she went home and could not obtain her PPI prescription. She states she then was not able to tolerate taking any oral intake. The patient returns due to not being able tolerate fluid. She did note elevated blood sugars but has been taking some insulin. (Jone Odell) - Related Data Previous Rx's Medication Instructions Recorded Insulin Lispro [humaLOG Kwikpen] See Protocol SQ TID-W/MEALS 30 03/18/22 Days #5 each Ondansetron Odt [Zofran ODT] 4 mg PO Q8HR PRN #10 tab 10/09/22 Famotidine [Pepcid] 20 mg PO BID PRN #30 tablet 10/12/22 Insulin Glargine,Hum.rec.anlog 20 units SQ HS@2200 #0 10/12/22 [Lantus Solostar Pen] DULoxetine HCL [Cymbalta] 20 mg PO DAILY #30 cap 10/15/22 Mirtazapine [Remeron] 15 mg PO HS #30 tab 10/15/22 Allergies Allergy/AdvReac Type Severity Reaction Status Date / Time No Known Allergies Allergy Verified 10/13/22 17:58 Review of Systems ROS Other: All systems not noted in ROS Statement are negative. <QuentinDavid Moreland - Last Filed: 10/13/22 13:15> ROS Other: All systems not noted in ROS Statement are negative. Constitutional: Reports: weakness. Denies: fever, chills Respiratory: Denies: cough, dyspnea Cardiovascular: Denies: chest pain, palpitations Gastrointestinal: Reports: nausea, vomiting. Denies: diarrhea, hematemesis, melena, hematochezia Genitourinary: Denies: dysuria, hematuria Musculoskeletal: Denies: back pain Skin: Denies: rash Neurological: Denies: headache, weakness <Jone Odell - Last Filed: 10/18/22 06:19> ROS Statement: Those systems with pertinent positive or pertinent negative responses have been documented in the HPI. Past Medical History Past Medical History: Diabetes Mellitus History of Any Multi-Drug Resistant Organisms: None Reported Additional Past Surgical History / Comment(s): Facial reconstruction Past Anesthesia/Blood Transfusion Reactions: No Reported Reaction Past Psychological History: No Psychological Hx Reported, Schizoaffective Disorder Smoking Status: Current every day smoker Past Alcohol Use History: None Reported Past Drug Use History: Marijuana <QuentinDavid Moreland - Last Filed: 10/13/22 13:15> General Exam Limitations: no limitations <QuentinDavid Moreland - Last Filed: 10/13/22 13:15> General appearance: alert, in no apparent distress Head exam: Present: atraumatic, normocephalic Eye exam: Present: normal appearance ENT exam: Present: mucous membranes dry Neck exam: Present: normal inspection Respiratory exam: Present: normal lung sounds bilaterally. Absent: respiratory distress, wheezes, rales, rhonchi, stridor Cardiovascular Exam: Present: normal rhythm, tachycardia, normal heart sounds. Absent: systolic murmur, diastolic murmur, rubs, gallop GI/Abdominal exam: Present: soft. Absent: distended, tenderness, guarding, rebound, rigid, mass Extremities exam: Present: normal inspection, normal capillary refill. Absent: pedal edema, calf tenderness Back exam: Present: normal inspection. Absent: CVA tenderness (R), CVA tenderness (L) Neurological exam: Present: alert Skin exam: Present: warm, dry, intact, normal color. Absent: rash <Jose RJone - Last Filed: 10/18/22 06:19> Course Vital Signs 10/13/22 10/13/22 10/13/22 11:12 16:41 20:00 Temperature 98.7 F Pulse Rate 142 H 115 H 107 H Pulse Rate [ Pulse Oximetery ] Respiratory 26 H 16 18 Rate Blood Pressure 110/69 122/75 117/71 Blood Pressure [Supine] O2 Sat by Pulse 100 100 99 Oximetry 10/13/22 20:57 Temperature 98.4 F Pulse Rate Pulse Rate [ 127 H Pulse Oximetery ] Respiratory 18 Rate Blood Pressure Blood Pressure 110/72 [Supine] O2 Sat by Pulse 99 Oximetry Medical Decision Making - Lab Data Result diagrams: 10/14/22 21:03 10/15/22 06:50 <Jone Odell - Last Filed: 10/18/22 06:19> - Medical Decision Making Patient is 22-year-old woman here for intractable vomiting. The workup does reveal patient in DKA again. She is started on fluids, insulin as well as other medications to manage her symptoms. The case is discussed with [facility] and they will admit to continue treatment. Was pt. sent in by a medical professional or institution (, PA, MANAGER SEMICONDUCTOR, urgent care, hospital, or half-way...) When possible be specific @ -[No] Did you speak to anyone other than the patient for history (EMS, parent, family, police, friend...)? What history was obtained from this source @ -[No] Did you review nursing and triage notes (agree or disagree)? Why? @ -[I reviewed and agree with nursing and triage notes] Were old charts reviewed (outside hosp., previous admission, EMS record, old EKG, old radiological studies, urgent care reports/EKG's, half-way records)? Report findings @ -[old charts were reviewed] Differential Diagnosis (chest pain, altered mental status, abdominal pain women, abdominal pain men, vaginal bleeding, weakness, fever, dyspnea, syncope, headache, dizziness, GI bleed, back pain, seizure, CVA, palpatations, mental health, musculoskeletal)? @ -Differential Abdominal Pain Men: Appendicitis, cholecystitis, diverticulosis, ischemic bowel, pancreatitis, hepatitis, UTI, gastroenteritis, AAA, incarcerated hernia, bowel obstruction, constipation, inflammatory bowel, hepatitis, peptic ulcer disease, splenic infarction, perforated viscus, testicular torsion, this is not meant to be an all-inclusive list EKG interpreted by me (3pts min.). @ -[As above] X-rays interpreted by me (1pt min.). @ -[None done] CT interpreted by me (1pt min.). @ -[None done] U/S interpreted by me (1pt. min.). @ -[None done] What testing was considered but not performed or refused? (CT, X-rays, U/S, labs)? Why? @ -[None] What meds were considered but not given or refused? Why? @ -[None] Did you discuss the management of the patient with other professionals (professionals i.e. , PA, MANAGER SEMICONDUCTOR, lab, RT, psych nurse, social media editor, heavy forger, teacher, procurement officer, disease case manager rn)? Give summary @ -Case discussed with admitting physician Was smoking cessation discussed for >3mins.? @ -[No] Was critical care preformed (if so, how long)? @ -[Yes 30 minutes Were there social determinants of health that impacted care today? How? (Homeles sness, low income, unemployed, alcoholism, drug addiction, transportation, low edu. Level, literacy, decrease access to med. care, snf, rehab)? @ -[No] Was there de-escalation of care discussed even if they declined (Discuss DNR or withdrawal of care, Hospice)? DNR status @ -[No] What co-morbidities impacted this encounter? (DM, HTN, Smoking, COPD, CAD, Cancer, CVA, ARF, Chemo, Hep., AIDS, mental health diagnosis, sleep apnea, morbid obesity)? @ -[None] Was patient admitted / discharged? Hospital course, mention meds given and route, prescriptions, significant lab abnormalities, going to OR and other pertinent info. @ -[Admitted Undiagnosed new problem with uncertain prognosis? @ -[No] Drug Therapy requiring intensive monitoring for toxicity (Heparin, Nitro, Insulin, Cardizem)? @ -[No] Were any procedures done? @ -[No] Diagnosis/symptom? @ -[Acute DKA Acute, or Chronic, or Acute on Chronic? @ -[default] Uncomplicated (without systemic symptoms) or Complicated (systemic symptoms)? @ -[Uncomplicated Side effects of treatment? @ -[No] Exacerbation, Progression, or Severe Exacerbation? @ -[No] Poses a threat to life or bodily function? How? (Chest pain, USA, IA, pneumonia, PE, COPD, DKA, ARF, appy, cholecystitis, CVA, Diverticulitis, Homicidal, Suicidal, threat to staff... and all critical care pts) @ -[Yes, untreated DKA will rapidly worsening, possibly causing (Jone Odell) - Lab Data Lab Results 10/13/22 10/13/22 10/13/22 Range/Units 11:22 11:22 13:28 WBC (3.8-10.6) k/uL RBC (3.80-5.40) m/uL Hgb (11.4-16.0) gm/dL Hct (34.0-46.0) % MCV (80.0-100.0) fL MCH (25.0-35.0) pg MCHC (31.0-37.0) g/dL RDW (11.5-15.5) % Plt Count (150-450) k/uL MPV Neutrophils % % Lymphocytes % % Monocytes % % Eosinophils % % Basophils % % Neutrophils # (1.3-7.7) k/uL Lymphocytes # (1.0-4.8) k/uL Monocytes # (0-1.0) k/uL Eosinophils # (0-0.7) k/uL Basophils # (0-0.2) k/uL VBG pH (7.31-7.41) VBG pCO2 (37-51) mmHg VBG HCO3 (24-28) mmol/L Sodium (137-145) mmol/L Potassium (3.5-5.1) mmol/L Chloride (98-107) mmol/L Carbon Dioxide (22-30) mmol/L Anion Gap mmol/L BUN (7-17) mg/dL Creatinine (0.52-1.04) mg/dL Est GFR (CKD-EPI)AfAm (>60 ml/min/1.73 sqM) Est GFR (CKD-EPI)NonAf (>60 ml/min/1.73 sqM) Glucose (74-99) mg/dL POC Glucose (mg/dL) 445 H (70-110) mg/dL POC Glu Assembler Gold Frame ID Kristy Villatoro Lactic Ac Sepsis Rflx Plasma Lactic Acid Kale (0.7-2.0) mmol/L Calcium (8.4-10.2) mg/dL Magnesium (1.6-2.3) mg/dL Total Bilirubin (0.2-1.3) mg/dL AST (14-36) U/L ALT (4-34) U/L Alkaline Phosphatase (38-126) U/L Total Protein (6.3-8.2) g/dL Albumin (3.5-5.0) g/dL Amylase (30-110) U/L Lipase (23-300) U/L Urine Color Light Yellow Urine Appearance Clear (Clear) Urine pH 6.0 (5.0-8.0) Ur Specific [place] 1.030 (1.001-1.035) Urine Protein Negative (Negative) Urine Glucose (UA) 4+ H (Negative) Urine Ketones 4+ H (Negative) Urine Blood Negative (Negative) Urine Nitrite Negative (Negative) Urine Bilirubin Negative (Negative) Urine Urobilinogen <2.0 (<2.0) mg/dL Ur Leukocyte Esterase Negative (Negative) Urine HCG, Qual Not Detected (Not Detectd) Acetone, Qual (Negative) 10/13/22 10/13/22 10/13/22 Range/Units 13:41 13:41 13:41 WBC 13.6 H (3.8-10.6) k/uL RBC 4.67 (3.80-5.40) m/uL Hgb 13.7 (11.4-16.0) gm/dL Hct 41.8 (34.0-46.0) % MCV 89.5 (80.0-100.0) fL MCH 29.2 (25.0-35.0) pg MCHC 32.7 (31.0-37.0) g/dL RDW 13.3 (11.5-15.5) % Plt Count 375 (150-450) k/uL MPV 8.1 Neutrophils % 89 % Lymphocytes % 5 % Monocytes % 5 % Eosinophils % 0 % Basophils % 0 % Neutrophils # 12.2 H (1.3-7.7) k/uL Lymphocytes # 0.6 L (1.0-4.8) k/uL Monocytes # 0.7 (0-1.0) k/uL Eosinophils # 0.0 (0-0.7) k/uL Basophils # 0.0 (0-0.2) k/uL VBG pH (7.31-7.41) VBG pCO2 (37-51) mmHg VBG HCO3 (24-28) mmol/L Sodium 136 L (137-145) mmol/L Potassium 3.9 (3.5-5.1) mmol/L Chloride 98 (98-107) mmol/L Carbon Dioxide 8 L* (22-30) mmol/L Anion Gap 30 mmol/L BUN 18 H (7-17) mg/dL Creatinine 0.88 (0.52-1.04) mg/dL Est GFR (CKD-EPI)AfAm >90 (>60 ml/min/1.73 sqM) Est GFR (CKD-EPI)NonAf >90 (>60 ml/min/1.73 sqM) Glucose 432 H (74-99) mg/dL POC Glucose (mg/dL) (70-110) mg/dL POC Glu Assembler Gold Frame ID Lactic Ac Sepsis Rflx Plasma Lactic Acid Kale 2.2 H* (0.7-2.0) mmol/L Calcium 9.4 (8.4-10.2) mg/dL Magnesium 2.0 (1.6-2.3) mg/dL Total Bilirubin 0.9 (0.2-1.3) mg/dL AST 26 (14-36) U/L ALT 26 (4-34) U/L Alkaline Phosphatase 96 (38-126) U/L Total Protein 7.8 (6.3-8.2) g/dL Albumin 4.8 (3.5-5.0) g/dL Amylase 80 (30-110) U/L Lipase 56 (23-300) U/L Urine Color Urine Appearance (Clear) Urine pH (5.0-8.0) Ur Specific [place] (1.001-1.035) Urine Protein (Negative) Urine Glucose (UA) (Negative) Urine Ketones (Negative) Urine Blood (Negative) Urine Nitrite (Negative) Urine Bilirubin (Negative) Urine Urobilinogen (<2.0) mg/dL Ur Leukocyte Esterase (Negative) Urine HCG, Qual (Not Detectd) Acetone, Qual (Negative) 10/13/22 10/13/22 10/13/22 Range/Units 13:41 14:08 15:17 WBC (3.8-10.6) k/uL RBC (3.80-5.40) m/uL Hgb (11.4-16.0) gm/dL Hct (34.0-46.0) % MCV (80.0-100.0) fL MCH (25.0-35.0) pg MCHC (31.0-37.0) g/dL RDW (11.5-15.5) % Plt Count (150-450) k/uL MPV Neutrophils % % Lymphocytes % % Monocytes % % Eosinophils % % Basophils % % Neutrophils # (1.3-7.7) k/uL Lymphocytes # (1.0-4.8) k/uL Monocytes # (0-1.0) k/uL Eosinophils # (0-0.7) k/uL Basophils # (0-0.2) k/uL VBG pH 7.26 L (7.31-7.41) VBG pCO2 24 L (37-51) mmHg VBG HCO3 10 L (24-28) mmol/L Sodium (137-145) mmol/L Potassium (3.5-5.1) mmol/L Chloride (98-107) mmol/L Carbon Dioxide (22-30) mmol/L Anion Gap mmol/L BUN (7-17) mg/dL Creatinine (0.52-1.04) mg/dL Est GFR (CKD-EPI)AfAm (>60 ml/min/1.73 sqM) Est GFR (CKD-EPI)NonAf (>60 ml/min/1.73 sqM) Glucose (74-99) mg/dL POC Glucose (mg/dL) (70-110) mg/dL POC Glu Assembler Gold Frame ID Lactic Ac Sepsis Rflx Y Plasma Lactic Acid Kale (0.7-2.0) mmol/L Calcium (8.4-10.2) mg/dL Magnesium (1.6-2.3) mg/dL Total Bilirubin (0.2-1.3) mg/dL AST (14-36) U/L ALT (4-34) U/L Alkaline Phosphatase (38-126) U/L Total Protein (6.3-8.2) g/dL Albumin (3.5-5.0) g/dL Amylase (30-110) U/L Lipase (23-300) U/L Urine Color Urine Appearance (Clear) Urine pH (5.0-8.0) Ur Specific [place] (1.001-1.035) Urine Protein (Negative) Urine Glucose (UA) (Negative) Urine Ketones (Negative) Urine Blood (Negative) Urine Nitrite (Negative) Urine Bilirubin (Negative) Urine Urobilinogen (<2.0) mg/dL Ur Leukocyte Esterase (Negative) Urine HCG, Qual (Not Detectd) Acetone, Qual Positive (Negative) 10/13/22 Range/Units 15:38 WBC (3.8-10.6) k/uL RBC (3.80-5.40) m/uL Hgb (11.4-16.0) gm/dL Hct (34.0-46.0) % MCV (80.0-100.0) fL MCH (25.0-35.0) pg MCHC (31.0-37.0) g/dL RDW (11.5-15.5) % Plt Count (150-450) k/uL MPV Neutrophils % % Lymphocytes % % Monocytes % % Eosinophils % % Basophils % % Neutrophils # (1.3-7.7) k/uL Lymphocytes # (1.0-4.8) k/uL Monocytes # (0-1.0) k/uL Eosinophils # (0-0.7) k/uL Basophils # (0-0.2) k/uL VBG pH (7.31-7.41) VBG pCO2 (37-51) mmHg VBG HCO3 (24-28) mmol/L Sodium (137-145) mmol/L Potassium (3.5-5.1) mmol/L Chloride (98-107) mmol/L Carbon Dioxide (22-30) mmol/L Anion Gap mmol/L BUN (7-17) mg/dL Creatinine (0.52-1.04) mg/dL Est GFR (CKD-EPI)AfAm (>60 ml/min/1.73 sqM) Est GFR (CKD-EPI)NonAf (>60 ml/min/1.73 sqM) Glucose (74-99) mg/dL POC Glucose (mg/dL) 292 H (70-110) mg/dL POC Glu Assembler Gold Frame ID Celine Shanks Lactic Ac Sepsis Rflx Plasma Lactic Acid Kale (0.7-2.0) mmol/L Calcium (8.4-10.2) mg/dL Magnesium (1.6-2.3) mg/dL Total Bilirubin (0.2-1.3) mg/dL AST (14-36) U/L ALT (4-34) U/L Alkaline Phosphatase (38-126) U/L Total Protein (6.3-8.2) g/dL Albumin (3.5-5.0) g/dL Amylase (30-110) U/L Lipase (23-300) U/L Urine Color Urine Appearance (Clear) Urine pH (5.0-8.0) Ur Specific [place] (1.001-1.035) Urine Protein (Negative) Urine Glucose (UA) (Negative) Urine Ketones (Negative) Urine Blood (Negative) Urine Nitrite (Negative) Urine Bilirubin (Negative) Urine Urobilinogen (<2.0) mg/dL Ur Leukocyte Esterase (Negative) Urine HCG, Qual (Not Detectd) Acetone, Qual (Negative) Critical Care Time Critical Care Time: Yes (30 minutes) <Jone Odell - Last Filed: 10/18/22 06:19> Disposition <David Saavedra - Last Filed: 10/13/22 13:15> Is patient prescribed a controlled substance at d/c from ED?: No <Jone Odell - Last Filed: 10/18/22 06:19> Clinical Impression: Diabetic ketoacidosis, Vomiting Disposition: ADMITTED IP TO THIS HOSP Condition: Stable
[2022-10-13 13:49] LABS: Glucose,Whole Blood 445 mg/dL (70-110)
[2022-10-13 13:54] LABS: VBG PH 7.26 (7.31-7.41)
[2022-10-13 14:03] LABS: ALT 26 U/L (4-34); AST 26 U/L (14-36); African American GFR (CKD) >90 (>60 ml/min/1.73 sqM); Albumin 4.8 g/dL (3.5-5.0); Alkaline Phosphatase 96 U/L (38-126); Amylase 80 U/L (30-110); Anion Gap 30 mmol/L; Basophils % (A) 0 %; Blood Urea Nitrogen 18 mg/dL (7-17); Calcium 9.4 mg/dL (8.4-10.2); Chloride 98 mmol/L (98-107); Eosinophils % (A) 0 %; Glucose 432 mg/dL (74-99); HCT 41.8 % (34.0-46.0); HGB 13.7 gm/dL (11.4-16.0); Lipase 56 U/L (23-300); Lymphocytes # (A) 0.6 k/uL (1.0-4.8); Lymphocytes % (A) 5 %; MCH 29.2 pg (25.0-35.0); MCHC 32.7 g/dL (31.0-37.0); MCV 89.5 fL (80.0-100.0); Mean Platelet Volume 8.1; Monocytes # (A) 0.7 k/uL (0-1.0); Monocytes % (A) 5 %; Neutrophils # (A) 12.2 k/uL (1.3-7.7); Neutrophils % (A) 89 %; Non-African American GFR(CKD) >90 (>60 ml/min/1.73 sqM); Platelet Count 375 k/uL (150-450); Potassium 3.9 mmol/L (3.5-5.1); RBC 4.67 m/uL (3.80-5.40); RDW 13.3 % (11.5-15.5); Sodium 136 mmol/L (137-145); Total Bilirubin 0.9 mg/dL (0.2-1.3); Total Protein 7.8 g/dL (6.3-8.2); WBC 13.6 k/uL (3.8-10.6)
[2022-10-13 14:08] LABS: Carbon Dioxide 8 mmol/L (22-30)
[2022-10-13] MEDS ORDERED: INSULIN REGULAR 100 UNIT/ML VIAL (IV) IV STA (15:01)
[2022-10-13] MEDS ORDERED: SODIUM CHLORIDE 0.9% 1,000 ML IV ONE (15:02)
[2022-10-13 15:41] LABS: Glucose,Whole Blood 292 mg/dL (70-110)
[2022-10-13] MEDS: INSULIN REGULAR 100 UNIT in SODIUM CHLORIDE 0.9% 100 ML IV SCH (15:52)
[2022-10-13] MEDS ORDERED: ONDANSETRON 4 MG/2 ML VIAL IVP STA (16:04)
[2022-10-13] MEDS ORDERED: PANTOPRAZOLE 40 MG/10 ML VIAL IVP STA (16:04)
[2022-10-13 16:42] LABS: Glucose,Whole Blood 262 mg/dL (70-110)
--- NOTE | 2022-10-13 17:06 | P.HPIM ---
History of Present Illness H&P Date: 10/13/22 Chief Complaint: Nausea vomiting Patient is a 22-year-old female with a past medical history of type 1 diabetes mellitus who presents to the ED with nausea vomiting and also hyperglycemia. Patient was just discharged yesterday. She was admitted for DKA and she was then discharged home once her anion gap was closed and she tolerated her diet. Patient states that she went home and ate some jelly and then felt nauseous so did not take anymore of her short acting insulin as she was not eating. Patient states that she only took 5 units of Glargine at nighttime because when she is in the hospital she had already received 15 units in the morning. She states t hat this morning she did not take any more for her long acting insulin. Patient also stated that she may have missed her period earlier this month. In the ED patient's WBC was 13.6, bicarbonate, blood glucose 432 and lactic acid 2.2. PH was 7.26. Patient was given 1 L fluid bolus. She was given 5 units insulin regular. Review of symptoms: 10 ROS reviewed and are negative except as noted in HPI Physical exam: General: [Alert and oriented, well nourished, no acute distress]. Eye: [PERRL, EOMI, normal conjunctiva]. HENT: [Normocephalic, clear tympanic membranes, normal hearing, moist oral mucosa, no scleral icterus, no sinus tenderness]. Neck: [Supple, non-tender, no carotid bruits, no JVD, no lymphadenopathy]. Lungs: [Clear to auscultation and percussion, non-labored respiration]. Heart: [Normal rate, regular rhythm, no murmur, gallop or edema]. Abdomen: [Soft, non-tender, non-distended, normal bowel sounds, no masses]. Musculoskeletal: [Normal range of motion and strength, no tenderness or swelling]. Skin: [Skin is warm, dry and pink, no rashes or lesions]. Neurologic: [Awake, alert, and oriented X3, CN II-XII intact]. Psychiatric: [Cooperative, appropriate mood and affect]. Assessment DKA patient reports being compliant with her insulin. Unclear etiology of what exacerbated DKA. Leukocytosis likely reactive Acid reflux Plan We'll give another 2 L of fluid bolus We'll then start the patient on insulin drip and D5 half-normal saline Trend BMP every 4 hours Accu-Cheks every 1 hour Patient states that she missed her period earlier this month so we'll check a test We'll check urine drug screen IV Protonix 40mg daily Admit to PCU DVT prophylaxis: Encourage early ambulation CODE STATUS:full code DVT prophylaxis: Encourage early ambulation Discussed with: Patient, ER, rn Anticipated length of stay > than [address]: home Past Medical History Past Medical History: Diabetes Mellitus History of Any Multi-Drug Resistant Organisms: None Reported Additional Past Surgical History / Comment(s): Facial reconstruction Past Anesthesia/Blood Transfusion Reactions: No Reported Reaction Past Psychological History: No Psychological Hx Reported, Schizoaffective Disorder Smoking Status: Current every day smoker Past Alcohol Use History: None Reported Past Drug Use History: Marijuana Medications and Allergies Home Medications Medication Instructions Recorded Confirmed Type Insulin Lispro [humaLOG Kwikpen] See Protocol SQ TID-W/MEALS 30 03/18/22 10/10/22 Rx Days #5 each Ondansetron Odt [Zofran ODT] 4 mg PO Q8HR PRN #10 tab 10/09/22 10/10/22 Rx Famotidine [Pepcid] 20 mg PO BID PRN #30 tablet 10/12/22 Rx Insulin Glargine,Hum.rec.anlog 20 units SQ HS@2200 #0 10/12/22 10/10/22 Rx [Lantus Solostar Pen] Allergies Allergy/AdvReac Type Severity Reaction Status Date / Time No Known Allergies Allergy Verified 10/13/22 11:15 Physical Exam Osteopathic Statement: *. No significant issues noted on an osteopathic structural exam other than those noted in the History and Physical/Consult. Vitals: Vital Signs Temp Pulse Resp BP Pulse Ox 10/13/22 16:41 115 H 16 122/75 100 10/13/22 11:12 98.7 F 142 H 26 H 110/69 100 Intake and Output 10/13/22 10/13/22 10/13/22 06:59 14:59 22:59 Other: Weight 49.895 kg Results CBC & Chem 7: 10/13/22 13:41 10/13/22 13:41 Labs: Abnormal Lab Results - Last 24 Hours (Table) 10/13/22 10/13/22 10/13/22 Range/Units 11:22 13:28 13:41 WBC 13.6 H (3.8-10.6) k/uL Neutrophils # 12.2 H (1.3-7.7) k/uL Lymphocytes # 0.6 L (1.0-4.8) k/uL VBG pH (7.31-7.41) VBG pCO2 (37-51) mmHg VBG HCO3 (24-28) mmol/L Sodium (137-145) mmol/L Carbon Dioxide (22-30) mmol/L BUN (7-17) mg/dL Glucose (74-99) mg/dL POC Glucose (mg/dL) 445 H (70-110) mg/dL Plasma Lactic Acid Kale (0.7-2.0) mmol/L Urine Glucose (UA) 4+ H (Negative) Urine Ketones 4+ H (Negative) 10/13/22 10/13/22 10/13/22 Range/Units 13:41 13:41 13:41 WBC (3.8-10.6) k/uL Neutrophils # (1.3-7.7) k/uL Lymphocytes # (1.0-4.8) k/uL VBG pH 7.26 L (7.31-7.41) VBG pCO2 24 L (37-51) mmHg VBG HCO3 10 L (24-28) mmol/L Sodium 136 L (137-145) mmol/L Carbon Dioxide 8 L* (22-30) mmol/L BUN 18 H (7-17) mg/dL Glucose 432 H (74-99) mg/dL POC Glucose (mg/dL) (70-110) mg/dL Plasma Lactic Acid [place] 2.2 H* (0.7-2.0) mmol/L Urine Glucose (UA) (Negative) Urine Ketones (Negative) 10/13/22 10/13/22 Range/Units 15:38 16:40 WBC (3.8-10.6) k/uL Neutrophils # (1.3-7.7) k/uL Lymphocytes # (1.0-4.8) k/uL VBG pH (7.31-7.41) VBG pCO2 (37-51) mmHg VBG HCO3 (24-28) mmol/L Sodium (137-145) mmol/L Carbon Dioxide (22-30) mmol/L BUN (7-17) mg/dL Glucose (74-99) mg/dL POC Glucose (mg/dL) 292 H 262 H (70-110) mg/dL Plasma Lactic Acid [place] (0.7-2.0) mmol/L Urine Glucose (UA) (Negative) Urine Ketones (Negative)
[2022-10-13 17:27] LABS: Amphetamine Screen,Urine Not Detected (NotDetected); Barbiturate Screen,Urine Not Detected (NotDetected); Benzodiazepines Screen,Urine Not Detected (NotDetected); Cocaine Screen,Urine Not Detected (NotDetected); Methadone Screen, Urine Not Detected (NotDetected); Opiate Screen,Urine Not Detected (NotDetected); Oxycodone Screen, Urine Not Detected (NotDetected); Phencyclidine Screen,Urine Not Detected (NotDetected); Tricyclic Antidepressant,Urine Not Detected (NotDetected); Urn Cannabinoid Scrn Detected (NotDetected)
[2022-10-13] MEDS: D5-0.45% NACL WITH KCL 20MEQ/L 1,000 ML IV SCH (17:53)
[2022-10-13] MEDS: SODIUM CHLORIDE 0.9% 1,000 ML IV SCH ×4 (17:53→20:58)
[2022-10-13 17:55] LABS: Glucose,Whole Blood 155 mg/dL (70-110)
[2022-10-13 20:09] LABS: Glucose,Whole Blood 161 mg/dL (70-110)
[2022-10-13 20:21] LABS: African American GFR (CKD) >90 (>60 ml/min/1.73 sqM); Anion Gap 13 mmol/L; Blood Urea Nitrogen 16 mg/dL (7-17); Calcium 8.1 mg/dL (8.4-10.2); Carbon Dioxide 16 mmol/L (22-30); Chloride 106 mmol/L (98-107); Glucose 171 mg/dL (74-99); Magnesium 1.9 mg/dL (1.6-2.3); Non-African American GFR(CKD) >90 (>60 ml/min/1.73 sqM); Phosphorus 1.8 mg/dL (2.5-4.5); Potassium 3.5 mmol/L (3.5-5.1); Sodium 135 mmol/L (137-145)
[2022-10-13 21:03] LABS: Glucose,Whole Blood 139 mg/dL (70-110)
[2022-10-13 22:09] LABS: Glucose,Whole Blood 129 mg/dL (70-110)
[2022-10-13 23:10] LABS: Glucose,Whole Blood 138 mg/dL (70-110)
[2022-10-14] MEDS: MELATONIN 5 MG TABLET PO PRN (00:06)
[2022-10-14 00:14] LABS: Glucose,Whole Blood 145 mg/dL (70-110)
[2022-10-14] MEDS: D5-0.45% NACL WITH KCL 20MEQ/L 1,000 ML IV SCH ×3 (00:58→12:30)
[2022-10-14 01:05] LABS: Glucose,Whole Blood 166 mg/dL (70-110)
[2022-10-14] MEDS: SODIUM CHLORIDE 0.9% 1,000 ML IV SCH ×3 (01:05→15:52)
[2022-10-14 01:35] LABS: HCT 32.9 % (34.0-46.0); HGB 10.9 gm/dL (11.4-16.0); MCH 29.6 pg (25.0-35.0); MCHC 33.3 g/dL (31.0-37.0); MCV 88.9 fL (80.0-100.0); Mean Platelet Volume 7.4; Platelet Count 349 k/uL (150-450); RDW 13.1 % (11.5-15.5)
[2022-10-14 01:45] LABS: African American GFR (CKD) >90 (>60 ml/min/1.73 sqM); Anion Gap 13 mmol/L; Blood Urea Nitrogen 14 mg/dL (7-17); Carbon Dioxide 14 mmol/L (22-30); Chloride 106 mmol/L (98-107); Glucose 161 mg/dL (74-99); Magnesium 1.8 mg/dL (1.6-2.3); Non-African American GFR(CKD) >90 (>60 ml/min/1.73 sqM); Phosphorus 2.4 mg/dL (2.5-4.5); Potassium 3.8 mmol/L (3.5-5.1); Sodium 133 mmol/L (137-145)
[2022-10-14 02:02] LABS: Glucose,Whole Blood 195 mg/dL (70-110)
[2022-10-14 03:02] LABS: Glucose,Whole Blood 227 mg/dL (70-110)
[2022-10-14 04:22] LABS: Glucose,Whole Blood 249 mg/dL (70-110)
[2022-10-14 04:43] LABS: African American GFR (CKD) >90 (>60 ml/min/1.73 sqM); Anion Gap 11 mmol/L; Blood Urea Nitrogen 13 mg/dL (7-17); Calcium 7.6 mg/dL (8.4-10.2); Carbon Dioxide 16 mmol/L (22-30); Chloride 104 mmol/L (98-107); Glucose 250 mg/dL (74-99); Magnesium 1.7 mg/dL (1.6-2.3); Non-African American GFR(CKD) >90 (>60 ml/min/1.73 sqM); Potassium 3.9 mmol/L (3.5-5.1); Sodium 131 mmol/L (137-145)
[2022-10-14 05:03] LABS: Glucose,Whole Blood 273 mg/dL (70-110)
[2022-10-14 06:09] LABS: Glucose,Whole Blood 273 mg/dL (70-110)
[2022-10-14 07:10] LABS: Glucose,Whole Blood 217 mg/dL (70-110)
[2022-10-14 08:15] LABS: Glucose,Whole Blood 189 mg/dL (70-110)
[2022-10-14 08:15] LABS: Basophils % (A) 0 %; Eosinophils # (A) 0.2 k/uL (0-0.7); Eosinophils % (A) 3 %; HCT 34.3 % (34.0-46.0); HGB 11.8 gm/dL (11.4-16.0); Lymphocytes # (A) 2.6 k/uL (1.0-4.8); Lymphocytes % (A) 33 %; MCH 31.1 pg (25.0-35.0); MCHC 34.6 g/dL (31.0-37.0); Mean Platelet Volume 8.8; Monocytes # (A) 0.4 k/uL (0-1.0); Monocytes % (A) 6 %; Neutrophils # (A) 4.2 k/uL (1.3-7.7); Neutrophils % (A) 56 %; Platelet Count 275 k/uL (150-450); RBC 3.81 m/uL (3.80-5.40); RDW 13.1 % (11.5-15.5); WBC 7.6 k/uL (3.8-10.6)
[2022-10-14 08:26] LABS: African American GFR (CKD) >90 (>60 ml/min/1.73 sqM); Anion Gap 12 mmol/L; Blood Urea Nitrogen 11 mg/dL (7-17); Calcium 7.9 mg/dL (8.4-10.2); Carbon Dioxide 16 mmol/L (22-30); Chloride 105 mmol/L (98-107); Glucose 219 mg/dL (74-99); Magnesium 1.8 mg/dL (1.6-2.3); Non-African American GFR(CKD) >90 (>60 ml/min/1.73 sqM); Potassium 3.7 mmol/L (3.5-5.1); Sodium 133 mmol/L (137-145)
[2022-10-14] MEDS: PANTOPRAZOLE 40 MG/10 ML VIAL IVP SCH (08:35)
[2022-10-14 09:12] LABS: Glucose,Whole Blood 149 mg/dL (70-110)
[2022-10-14 09:58] LABS: Glucose,Whole Blood 155 mg/dL (70-110)
[2022-10-14] MEDS ORDERED: METOCLOPRAMIDE 5 MG/ML 2 ML VIAL IVP PRN (10:14)
[2022-10-14] MEDS ORDERED: PROCHLORPERAZINE INJ 10 MG/2 ML VIAL IVP PRN (10:31)
[2022-10-14 11:13] LABS: Glucose,Whole Blood 217 mg/dL (70-110)
[2022-10-14 11:21] LABS: African American GFR (CKD) >90 (>60 ml/min/1.73 sqM); Anion Gap 11 mmol/L; Blood Urea Nitrogen 9 mg/dL (7-17); Calcium 8.1 mg/dL (8.4-10.2); Carbon Dioxide 17 mmol/L (22-30); Chloride 104 mmol/L (98-107); Glucose 159 mg/dL (74-99); Magnesium 1.8 mg/dL (1.6-2.3); Non-African American GFR(CKD) >90 (>60 ml/min/1.73 sqM); Potassium 3.8 mmol/L (3.5-5.1); Sodium 132 mmol/L (137-145)
[2022-10-14 11:38] LABS: HCG,Quantitative Serum <2.4 mIU/mL
[2022-10-14] MEDS ORDERED: hydrOXYzine HCL 25 MG TAB PO STA (11:51)
[2022-10-14 12:07] LABS: Glucose,Whole Blood 231 mg/dL (70-110)
--- NOTE | 2022-10-14 12:21 | P.PN ---
Subjective Progress Note Date: 10/14/22 Hospital Course: 22-year-old female with a past medical history of type 1 diabetes mellitus who presents to the ED with nausea vomiting and also hyperglycemia. In the ED patient's WBC was 13.6, bicarbonate, blood glucose 432 and lactic acid 2.2. PH was 7.26. Patient was given 1 L fluid bolus. She was given 5 units insulin regular. Currently on IV insulin for DKA. Subjective: She is seen and examined at bedside. No acute events overnight. Continues to have nausea and vomiting, denies any significant abdominal pain. Claims that she is tired. Pertinent positives and negatives as discussed above, a complete review of systems was performed and all other systems are negative. Vitals Signs Reviewed. General: nontoxic, no distress, appears at stated age Derm: warm, dry Head: atraumatic, normocephalic, symmetric Eyes: EOMI, no lid lag, anicteric sclera Mouth: no lip lesion, mucus membranes moist Cardiovascular: S1S2 reg, no murmur Lungs: CTA bilateral, no rhonchi, no rales , no accessory muscle use Abdominal: soft, nontender to palpation, no guarding, no appreciable organomegaly Ext: no gross muscle atrophy, no edema, no contractures Neuro: CN II-XI grossly intact, no focal neuro deficits Psych: Alert, oriented, appropriate affect Data Reviewed Today: Pertinent Labs: WBC 7.6, sodium 132, bicarb 17, anion gap 11, creatinine 0.44, negative , glucose range between 159-231 Imaging: None today Assessment and Plan: Diabetic ketoacidosis, and type 1 diabetic Leukocytosis, reactive, resolved Nausea and vomiting Anxiety -Currently on insulin drip, will transition off to subcu insulin once patient is able to tolerate oral intake, anion gap has closed, and blood sugars have come down -Continue to closely monitor blood sugar levels -May possibly have diabetic gastroparesis, will likely need outpatient follow-up and gastric emptying study -Patient unable to tolerate Reglan, currently on Compazine 5 mg IV every 6 hours as needed -Was given 25 mg hydroxyzine this morning -Repeat BMP tomorrow DVT ppx: Lovenox Code status: Full code Anticipated discharge place: Home Anticipated discharge time: 1-2 days Objective - Vital Signs Vital signs: Vital Signs Temp 97.7 F 10/14/22 08:41 Pulse 100 10/14/22 08:41 Resp 16 10/14/22 08:41 BP 144/80 10/14/22 08:41 Pulse Ox 100 10/14/22 08:41 FiO2 Intake & Output 10/13/22 10/14/22 10/14/22 18:59 06:59 18:59 Intake Total 53.837 7.408 Balance 53.837 7.408 Weight 49.895 kg 49.895 kg Intake: IV 20 Invasive Line 1 20 Intake, IV Titration 33.837 7.408 Amount Insulin Regular 100 unit 33.837 7.408 In Sodium Chloride 0.9% 100 ml @ 0.1 UNITS/KG/HR 5.039 mls/hr IV .Q20H3M [facility] Rx#:[id number] Other: Voiding Method Toilet # Voids 1 - Labs CBC & Chem 7: 10/14/22 07:38 10/14/22 10:21 Labs: Abnormal Lab Results - Last 24 Hours (Table) 10/13/22 10/13/22 10/13/22 Range/Units 13:28 13:41 13:41 WBC 13.6 H (3.8-10.6) k/uL RBC (3.80-5.40) m/uL Hgb (11.4-16.0) gm/dL Hct (34.0-46.0) % Neutrophils # 12.2 H (1.3-7.7) k/uL Lymphocytes # 0.6 L (1.0-4.8) k/uL VBG pH (7.31-7.41) VBG pCO2 (37-51) mmHg VBG HCO3 (24-28) mmol/L Sodium 136 L (137-145) mmol/L Carbon Dioxide 8 L* (22-30) mmol/L BUN 18 H (7-17) mg/dL Creatinine (0.52-1.04) mg/dL Glucose 432 H (74-99) mg/dL POC Glucose (mg/dL) 445 H (70-110) mg/dL Plasma Lactic Acid Kale (0.7-2.0) mmol/L Calcium (8.4-10.2) mg/dL Phosphorus (2.5-4.5) mg/dL U Marijuana (THC) Screen (NotDetected) 10/13/22 10/13/22 10/13/22 Range/Units 13:41 13:41 15:38 WBC (3.8-10.6) k/uL RBC (3.80-5.40) m/uL Hgb (11.4-16.0) gm/dL Hct (34.0-46.0) % Neutrophils # (1.3-7.7) k/uL Lymphocytes # (1.0-4.8) k/uL VBG pH 7.26 L (7.31-7.41) VBG pCO2 24 L (37-51) mmHg VBG HCO3 10 L (24-28) mmol/L Sodium (137-145) mmol/L Carbon Dioxide (22-30) mmol/L BUN (7-17) mg/dL Creatinine (0.52-1.04) mg/dL Glucose (74-99) mg/dL POC Glucose (mg/dL) 292 H (70-110) mg/dL Plasma Lactic Acid Kale 2.2 H* (0.7-2.0) mmol/L Calcium (8.4-10.2) mg/dL Phosphorus (2.5-4.5) mg/dL U Marijuana (THC) Screen (NotDetected) 10/13/22 10/13/22 10/13/22 Range/Units 16:40 16:44 16:50 WBC (3.8-10.6) k/uL RBC (3.80-5.40) m/uL Hgb (11.4-16.0) gm/dL Hct (34.0-46.0) % Neutrophils # (1.3-7.7) k/uL Lymphocytes # (1.0-4.8) k/uL VBG pH (7.31-7.41) VBG pCO2 (37-51) mmHg VBG HCO3 (24-28) mmol/L Sodium (137-145) mmol/L Carbon Dioxide (22-30) mmol/L BUN (7-17) mg/dL Creatinine (0.52-1.04) mg/dL Glucose (74-99) mg/dL POC Glucose (mg/dL) 262 H (70-110) mg/dL Plasma Lactic Acid Kale 3.1 H* (0.7-2.0) mmol/L Calcium (8.4-10.2) mg/dL Phosphorus (2.5-4.5) mg/dL U Marijuana (THC) Screen Detected H (NotDetected) 10/13/22 10/13/22 10/13/22 Range/Units 17:42 19:48 20:08 WBC (3.8-10.6) k/uL RBC (3.80-5.40) m/uL Hgb (11.4-16.0) gm/dL Hct (34.0-46.0) % Neutrophils # (1.3-7.7) k/uL Lymphocytes # (1.0-4.8) k/uL VBG pH (7.31-7.41) VBG pCO2 (37-51) mmHg VBG HCO3 (24-28) mmol/L Sodium 135 L (137-145) mmol/L Carbon Dioxide 16 L (22-30) mmol/L BUN (7-17) mg/dL Creatinine (0.52-1.04) mg/dL Glucose 171 H (74-99) mg/dL POC Glucose (mg/dL) 155 H 161 H (70-110) mg/dL Plasma Lactic Acid Kale (0.7-2.0) mmol/L Calcium 8.1 L (8.4-10.2) mg/dL Phosphorus 1.8 L (2.5-4.5) mg/dL U Marijuana (THC) Screen (NotDetected) 10/13/22 10/13/22 10/13/22 Range/Units 21:00 22:07 23:07 WBC (3.8-10.6) k/uL RBC (3.80-5.40) m/uL Hgb (11.4-16.0) gm/dL Hct (34.0-46.0) % Neutrophils # (1.3-7.7) k/uL Lymphocytes # (1.0-4.8) k/uL VBG pH (7.31-7.41) VBG pCO2 (37-51) mmHg VBG HCO3 (24-28) mmol/L Sodium (137-145) mmol/L Carbon Dioxide (22-30) mmol/L BUN (7-17) mg/dL Creatinine (0.52-1.04) mg/dL Glucose (74-99) mg/dL POC Glucose (mg/dL) 139 H 129 H 138 H (70-110) mg/dL Plasma Lactic Acid Kale (0.7-2.0) mmol/L Calcium (8.4-10.2) mg/dL Phosphorus (2.5-4.5) mg/dL U Marijuana (THC) Screen (NotDetected) 10/14/22 10/14/22 10/14/22 Range/Units 00:12 00:57 01:01 WBC 11.0 H (3.8-10.6) k/uL RBC 3.70 L (3.80-5.40) m/uL Hgb 10.9 L (11.4-16.0) gm/dL Hct 32.9 L (34.0-46.0) % Neutrophils # (1.3-7.7) k/uL Lymphocytes # (1.0-4.8) k/uL VBG pH (7.31-7.41) VBG pCO2 (37-51) mmHg VBG HCO3 (24-28) mmol/L Sodium 133 L (137-145) mmol/L Carbon Dioxide 14 L (22-30) mmol/L BUN (7-17) mg/dL Creatinine (0.52-1.04) mg/dL Glucose 161 H (74-99) mg/dL POC Glucose (mg/dL) 145 H (70-110) mg/dL Plasma Lactic Acid Kale (0.7-2.0) mmol/L Calcium 8.0 L (8.4-10.2) mg/dL Phosphorus 2.4 L (2.5-4.5) mg/dL U Marijuana (THC) Screen (NotDetected) 10/14/22 10/14/22 10/14/22 Range/Units 01:03 02:00 03:00 WBC (3.8-10.6) k/uL RBC (3.80-5.40) m/uL Hgb (11.4-16.0) gm/dL Hct (34.0-46.0) % Neutrophils # (1.3-7.7) k/uL Lymphocytes # (1.0-4.8) k/uL VBG pH (7.31-7.41) VBG pCO2 (37-51) mmHg VBG HCO3 (24-28) mmol/L Sodium (137-145) mmol/L Carbon Dioxide (22-30) mmol/L BUN (7-17) mg/dL Creatinine (0.52-1.04) mg/dL Glucose (74-99) mg/dL POC Glucose (mg/dL) 166 H 195 H 227 H (70-110) mg/dL Plasma Lactic Acid Kale (0.7-2.0) mmol/L Calcium (8.4-10.2) mg/dL Phosphorus (2.5-4.5) mg/dL U Marijuana (THC) Screen (NotDetected) 10/14/22 10/14/22 10/14/22 Range/Units 04:01 04:19 05:01 WBC (3.8-10.6) k/uL RBC (3.80-5.40) m/uL Hgb (11.4-16.0) gm/dL Hct (34.0-46.0) % Neutrophils # (1.3-7.7) k/uL Lymphocytes # (1.0-4.8) k/uL VBG pH (7.31-7.41) VBG pCO2 (37-51) mmHg VBG HCO3 (24-28) mmol/L Sodium 131 L (137-145) mmol/L Carbon Dioxide 16 L (22-30) mmol/L BUN (7-17) mg/dL Creatinine (0.52-1.04) mg/dL Glucose 250 H (74-99) mg/dL POC Glucose (mg/dL) 249 H 273 H (70-110) mg/dL Plasma Lactic Acid Kale (0.7-2.0) mmol/L Calcium 7.6 L (8.4-10.2) mg/dL Phosphorus (2.5-4.5) mg/dL U Marijuana (THC) Screen (NotDetected) 10/14/22 10/14/22 10/14/22 Range/Units 05:58 07:08 07:38 WBC (3.8-10.6) k/uL RBC (3.80-5.40) m/uL Hgb (11.4-16.0) gm/dL Hct (34.0-46.0) % Neutrophils # (1.3-7.7) k/uL Lymphocytes # (1.0-4.8) k/uL VBG pH (7.31-7.41) VBG pCO2 (37-51) mmHg VBG HCO3 (24-28) mmol/L Sodium 133 L (137-145) mmol/L Carbon Dioxide 16 L (22-30) mmol/L BUN (7-17) mg/dL Creatinine 0.42 L (0.52-1.04) mg/dL Glucose 219 H (74-99) mg/dL POC Glucose (mg/dL) 273 H 217 H (70-110) mg/dL Plasma Lactic Acid Kale (0.7-2.0) mmol/L Calcium 7.9 L (8.4-10.2) mg/dL Phosphorus (2.5-4.5) mg/dL U Marijuana (THC) Screen (NotDetected) 10/14/22 10/14/22 10/14/22 Range/Units 08:03 09:11 09:56 WBC (3.8-10.6) k/uL RBC (3.80-5.40) m/uL Hgb (11.4-16.0) gm/dL Hct (34.0-46.0) % Neutrophils # (1.3-7.7) k/uL Lymphocytes # (1.0-4.8) k/uL VBG pH (7.31-7.41) VBG pCO2 (37-51) mmHg VBG HCO3 (24-28) mmol/L Sodium (137-145) mmol/L Carbon Dioxide (22-30) mmol/L BUN (7-17) mg/dL Creatinine (0.52-1.04) mg/dL Glucose (74-99) mg/dL POC Glucose (mg/dL) 189 H 149 H 155 H (70-110) mg/dL Plasma Lactic Acid Kale (0.7-2.0) mmol/L Calcium (8.4-10.2) mg/dL Phosphorus (2.5-4.5) mg/dL U Marijuana (THC) Screen (NotDetected) 10/14/22 10/14/22 10/14/22 Range/Units 10:21 11:10 12:05 WBC (3.8-10.6) k/uL RBC (3.80-5.40) m/uL Hgb (11.4-16.0) gm/dL Hct (34.0-46.0) % Neutrophils # (1.3-7.7) k/uL Lymphocytes # (1.0-4.8) k/uL VBG pH (7.31-7.41) VBG pCO2 (37-51) mmHg VBG HCO3 (24-28) mmol/L Sodium 132 L (137-145) mmol/L Carbon Dioxide 17 L (22-30) mmol/L BUN (7-17) mg/dL Creatinine 0.44 L (0.52-1.04) mg/dL Glucose 159 H (74-99) mg/dL POC Glucose (mg/dL) 217 H 231 H (70-110) mg/dL Plasma Lactic Acid Kale (0.7-2.0) mmol/L Calcium 8.1 L (8.4-10.2) mg/dL Phosphorus (2.5-4.5) mg/dL U Marijuana (THC) Screen (NotDetected)
[2022-10-14 13:14] LABS: Glucose,Whole Blood 198 mg/dL (70-110)
[2022-10-14 14:00] VITALS: BMI 21.4
[2022-10-14 14:02] LABS: Glucose,Whole Blood 215 mg/dL (70-110)
[2022-10-14 14:57] LABS: Glucose,Whole Blood 271 mg/dL (70-110)
[2022-10-14] MEDS: DULoxetine HCL 20 MG CAPSULE.DR PO SCH (16:01)
[2022-10-14] MEDS: INSULIN REGULAR 100 UNIT in SODIUM CHLORIDE 0.9% 100 ML IV SCH (16:06)
[2022-10-14 16:09] LABS: Glucose,Whole Blood 356 mg/dL (70-110)
[2022-10-14 16:28] LABS: African American GFR (CKD) >90 (>60 ml/min/1.73 sqM); Anion Gap 17 mmol/L; Blood Urea Nitrogen 5 mg/dL (7-17); Calcium 8.3 mg/dL (8.4-10.2); Carbon Dioxide 12 mmol/L (22-30); Chloride 104 mmol/L (98-107); Glucose 359 mg/dL (74-99); Magnesium 1.7 mg/dL (1.6-2.3); Non-African American GFR(CKD) >90 (>60 ml/min/1.73 sqM); Potassium 4.3 mmol/L (3.5-5.1); Sodium 133 mmol/L (137-145)
[2022-10-14 17:13] LABS: Glucose,Whole Blood 290 mg/dL (70-110)
[2022-10-14 18:14] LABS: Glucose,Whole Blood 236 mg/dL (70-110)
[2022-10-14 19:03] LABS: Glucose,Whole Blood 213 mg/dL (70-110)
[2022-10-14 20:20] LABS: Glucose,Whole Blood 121 mg/dL (70-110)
[2022-10-14 20:34] LABS: African American GFR (CKD) >90 (>60 ml/min/1.73 sqM); Anion Gap 10 mmol/L; Blood Urea Nitrogen 4 mg/dL (7-17); Calcium 8.6 mg/dL (8.4-10.2); Carbon Dioxide 19 mmol/L (22-30); Chloride 107 mmol/L (98-107); Glucose 137 mg/dL (74-99); Magnesium 1.8 mg/dL (1.6-2.3); Non-African American GFR(CKD) >90 (>60 ml/min/1.73 sqM); Potassium 3.5 mmol/L (3.5-5.1); Sodium 136 mmol/L (137-145)
[2022-10-14] MEDS ORDERED: MIRTAZAPINE 15 MG TAB PO SCH (21:00)
[2022-10-14 21:04] LABS: Glucose,Whole Blood 129 mg/dL (70-110)
[2022-10-14 21:17] LABS: HCT 34.9 % (34.0-46.0); MCH 30.3 pg (25.0-35.0); MCHC 34.3 g/dL (31.0-37.0); MCV 88.3 fL (80.0-100.0); Mean Platelet Volume 7.2; Platelet Count 358 k/uL (150-450); RBC 3.95 m/uL (3.80-5.40); RDW 13.2 % (11.5-15.5); WBC 9.2 k/uL (3.8-10.6)
[2022-10-14] MEDS ORDERED: INSULIN DETEMIR (LEVEMIR) 100 UNIT/ML SYR SQ SCH (22:00)
[2022-10-14 22:11] LABS: Glucose,Whole Blood 136 mg/dL (70-110)
[2022-10-14] MEDS ORDERED: busPIRone HCl 10 MG TAB PO PRN (22:16)
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
[2022-10-14 22:35] LABS: Glucose,Whole Blood 118 mg/dL (70-110)
[2022-10-14 23:35] LABS: Glucose,Whole Blood 106 mg/dL (70-110)
[2022-10-15 00:08] LABS: African American GFR (CKD) >90 (>60 ml/min/1.73 sqM); Anion Gap 10 mmol/L; Blood Urea Nitrogen 4 mg/dL (7-17); Calcium 8.7 mg/dL (8.4-10.2); Carbon Dioxide 20 mmol/L (22-30); Chloride 107 mmol/L (98-107); Glucose 106 mg/dL (74-99); Magnesium 1.8 mg/dL (1.6-2.3); Non-African American GFR(CKD) >90 (>60 ml/min/1.73 sqM); Potassium 3.5 mmol/L (3.5-5.1); Sodium 137 mmol/L (137-145)
[2022-10-15 00:21] LABS: Glucose,Whole Blood 94 mg/dL (70-110)
[2022-10-15] MEDS: D5-0.45% NACL WITH KCL 20MEQ/L 1,000 ML IV SCH ×2 (00:24→00:28)
[2022-10-15] MEDS: MELATONIN 5 MG TABLET PO PRN (00:24)
[2022-10-15 05:51] LABS: Glucose,Whole Blood 87 mg/dL (70-110)
[2022-10-15] MEDS: INSULIN REGULAR 100 UNIT in SODIUM CHLORIDE 0.9% 100 ML IV SCH (05:54)
[2022-10-15] MEDS ORDERED: INSULIN ASPART (NovoLOG) 100 UNIT/ML VIAL SQ SCH (07:30)
[2022-10-15 07:36] LABS: African American GFR (CKD) >90 (>60 ml/min/1.73 sqM); Anion Gap 13 mmol/L; Blood Urea Nitrogen 4 mg/dL (7-17); Carbon Dioxide 18 mmol/L (22-30); Chloride 105 mmol/L (98-107); Glucose 97 mg/dL (74-99); Non-African American GFR(CKD) >90 (>60 ml/min/1.73 sqM); Sodium 136 mmol/L (137-145)
[2022-10-15] MEDS ORDERED: ENOXAPARIN 40 MG/0.4 ML SYRINGE SQ SCH (09:00)
[2022-10-15 09:12] VITALS: RESP 17; TEMP 98.4
[2022-10-15] MEDS ORDERED: ONDANSETRON 4 MG/2 ML VIAL IVP STA (09:36)
[2022-10-15] MEDS: PANTOPRAZOLE 40 MG/10 ML VIAL IVP SCH (09:41)
[2022-10-15] MEDS: DULoxetine HCL 20 MG CAPSULE.DR PO SCH (10:42)
--- NOTE | 2022-10-15 11:10 | P.DS ---
Providers Date of admission: 10/13/22 16:11 Expected date of discharge: 10/15/22 Attending physician: Cabrera Martinez MD Consults: 10/13/22 21:37 Consult Physician Stat Consulting Provider: Cabrera Martinez Consult Reason/Comments: DKA Do you want consulting provider notified?: Yes 10/13/22 21:52 Consult Physician Urgent Consulting Provider: Epifanio Dominguez Consult Reason/Comments: self harm Do you want consulting provider notified?: Yes Primary care physician: Physician Nonstaff Hospital Course: Discharge Diagnosis: Diabetic ketoacidosis, and type 1 diabetic Leukocytosis, reactive, resolved Nausea and vomiting Generalized anxiety disorder Mild depression Hospital Course: 22-year-old female with a past medical history of type 1 diabetes mellitus who presents to the ED with nausea vomiting and also hyperglycemia. In the ED, patient's WBC was 13.6, bicarbonate, blood glucose 432 and lactic acid 2.2. PH was 7.26. Patient was given 1 L fluid bolus. She was started on insulin drip for DKA. Patient's blood sugars eventually controlled on IV insulin, patient was switched over to subcu insulin, he will tolerate oral intake. She claims that she has significant nausea and vomiting each time she consumes meal, I suspect possible diabetic gastroparesis. She needs outpatient follow-up with PCP and endocrinology. She was also seen by psychiatry and was started on duloxetine and mirtazapine. Patient seen and examined at bedside. Vital signs reviewed and stable. General: nontoxic, no distress, appears at stated age Derm: warm, dry Head: atraumatic, normocephalic, symmetric Eyes: EOMI, no lid lag, anicteric sclera Mouth: no lip lesion, mucus membranes moist Cardiovascular: S1S2 reg, no murmur Lungs: CTA bilateral, no rhonchi, no rales , no accessory muscle use Abdominal: soft, nontender to palpation, no guarding, no appreciable organomegaly Ext: no gross muscle atrophy, no edema, no contractures Neuro: CN II-XI grossly intact, no focal neuro deficits Psych: Alert, oriented, appropriate affect A total of 33 minutes of time were spent preparing this complex discharge summary. Patient was discharged on 10/15/22 at 9:35. Patient Condition at Discharge: Stable Plan - Discharge Summary Discharge Rx Participant: Yes New Discharge Prescriptions: New DULoxetine HCL [Cymbalta] 20 mg PO DAILY #30 cap Mirtazapine [Remeron] 15 mg PO HS #30 tab Continue Insulin Lispro [humaLOG Kwikpen] See Protocol SQ TID-W/MEALS 30 Days #5 each Ondansetron Odt [Zofran ODT] 4 mg PO Q8HR PRN #10 tab PRN Reason: Nausea Famotidine [Pepcid] 20 mg PO BID PRN #30 tablet PRN Reason: Indigestion Insulin Glargine,Hum.rec.anlog [Lantus Solostar Pen] 20 units SQ HS@2200 #0 Discharge Medication List Insulin Lispro [humaLOG Kwikpen] See Protocol SQ TID-W/MEALS 30 Days #5 each 03/18/22 [Rx] Ondansetron Odt [Zofran ODT] 4 mg PO Q8HR PRN #10 tab 10/09/22 [Rx] Famotidine [Pepcid] 20 mg PO BID PRN #30 tablet 10/12/22 [Rx] Insulin Glargine,Hum.rec.anlog [Lantus Solostar Pen] 20 units SQ HS@2200 #0 10/12/22 [Rx] DULoxetine HCL [Cymbalta] 20 mg PO DAILY #30 cap 10/15/22 [Rx] Mirtazapine [Remeron] 15 mg PO HS #30 tab 10/15/22 [Rx] Follow up Appointment(s)/Referral(s): Nonstaff,Physician [Primary Care Provider] - 1-2 days Patient Instructions/Handouts: Diabetic Gastroparesis (DC), Diabetic Ketoacidosis (DC) Activity/Diet/Wound Care/Special Instructions: Please see your PCP for further gastroparesis workup. Discharge Disposition: HOME SELF-CARE
[2022-10-15 11:30] VITALS: BP 147/88; PULSE 87
[2022-10-16] MEDS ORDERED: PANTOPRAZOLE 40 MG TABLET PO SCH (07:30)
== END 2022-10-15 12:00 | disposition home or self-care (01) | DRG 420 ==
LOC: EC 10:49 → 3SCARD 16:11 → 4SSUR 22:40 → 3SCARD 10-14 00:03
PROVIDERS: ADMIT Student in an Organized Health Care Education/Training Program; ATTEND Student in an Organized Health Care Education/Training Program
DX: E10.10 Type 1 diabetes mellitus with ketoacidosis without coma (principal); F17.200 Nicotine dependence, unspecified, uncomplicated; F32.A Depression, unspecified; F41.1 Generalized anxiety disorder; K21.9 Gastro-esophageal reflux disease without esophagitis; Z79.4 Long term (current) use of insulin
CPT/HCPCS: 36415; 80048; 80051; 80053; 80306; 81003; 81025; 82009; 82150; 82565; 82803; 82947; 83605; 83690; 83735; 84100; 84520; 84702; 85025; 85027; 96361; 96365; 96366; 96375; 99291

== ENCOUNTER 2022-12-22 05:56 | Inpatient (IN) | payer OTHER ==
[2022-12-22] MEDS ORDERED: PANTOPRAZOLE 40 MG/10 ML VIAL IVP STA (06:07)
[2022-12-22] MEDS ORDERED: METOCLOPRAMIDE 5 MG/ML 2 ML VIAL IVP STA (06:07)
[2022-12-22] MEDS ORDERED: SODIUM CHLORIDE 0.9% 1,000 ML IV STA (06:07)
--- NOTE | 2022-12-22 06:10 | ED ---
Recheck HPI - General Chief Complaint: Nausea/Vomiting/Diarrhea Stated Complaint: Hyperglycemia Time Seen by Provider: 12/22/22 06:02 Source: patient, EMS, RN notes reviewed Mode of arrival: EMS Limitations: no limitations - History of Present Illness Initial Comments: This is a 22-year-old female who presents to the emergency department for concerns of elevated blood sugar. Patient has been without her Lantus for about a week, which she states is due to problems with her insurance and prescribing provider. This is prescribed by her PCP in [place], [place], however she lives locally. She used to live in [place], which is why she sees a PCP there. However, she did make an appointment with a local PCP and has her first appointment tomorrow. She cannot recall who this provider is. States that starting yesterday, she began to feel very ill and has had problems with ongoing nausea and vomiting. She was given Zofran by EMS on route, which was only moderately effective. States that this feels like the last time she was in DKA. EMS measured her blood sugar at 422. She has not been checking her blood sugar at home. Denies any fevers, chills, sore throat, cough, dyspnea, chest pain, palpitations, abdominal pain, diarrhea, back pain, or headaches. MD Complaint: other (Hyperglycemia) - Related Data Home Medications Medication Instructions Recorded Confirmed Insulin Glargine,Hum.rec.anlog 25 units SQ HS@2200 12/22/22 12/22/22 [Lantus Solostar Pen] Previous Rx's Medication Instructions Recorded Insulin Lispro [humaLOG Kwikpen] See Protocol SQ TID-W/MEALS 30 03/18/22 Days #5 each Allergies Allergy/AdvReac Type Severity Reaction Status Date / Time No Known Allergies Allergy Verified 12/22/22 08:33 Review of Systems ROS Statement: Those systems with pertinent positive or pertinent negative responses have been documented in the HPI. ROS Other: All systems not noted in ROS Statement are negative. Past Medical History Past Medical History: Diabetes Mellitus History of Any Multi-Drug Resistant Organisms: None Reported Additional Past Surgical History / Comment(s): Facial reconstruction Past Anesthesia/Blood Transfusion Reactions: No Reported Reaction Past Psychological History: No Psychological Hx Reported, Schizoaffective Disorder Smoking Status: Current every day smoker Past Alcohol Use History: None Reported Past Drug Use History: Marijuana General Exam Limitations: no limitations General appearance: alert, in distress Head exam: Present: atraumatic, normocephalic, normal inspection Respiratory exam: Present: normal lung sounds bilaterally. Absent: respiratory distress, wheezes, rales, rhonchi, stridor Cardiovascular Exam: Present: normal rhythm, tachycardia Neurological exam: Present: alert, oriented X3, CN II-XII intact Psychiatric exam: Present: normal affect, normal mood Skin exam: Present: warm, dry, intact, normal color. Absent: rash Course Vital Signs 12/22/22 12/22/22 05:59 07:05 Temperature 98.2 F Pulse Rate 124 H 95 Respiratory 22 20 Rate Blood Pressure 139/84 131/83 O2 Sat by Pulse 100 100 Oximetry Medical Decision Making - Medical Decision Making This is a 22-year-old female who presents to the emergency department for elevated blood sugar, nausea, and vomiting. Was pt. sent in by a medical professional or institution? @ -No Did you speak to anyone other than the patient for history? @ -No Did you review nursing and triage notes? @ -Yes, and I agree, it is accurate with regards to the patient's symptoms. Were old charts reviewed? @ -No Differential Diagnosis? @ -Differential Nausea and Vomiting: Gastroenteritis, cholecystitis, appendicitis, pancreatitis, migraine, benign positional vertigo, food borne illness, pyelonephritis, irritable bowel syndrome, influenza, Covid, GERD, incarcerated hernia, intestinal obstruction, this is not meant to be an all-inclusive list. EKG interpreted by me (3pts min.)? @ -EKG interpreted by me demonstrating the following: Sinus tachycardia. Ventricular rate 109 beats per minute, KS interval 133 ms, QRS duration 76 ms, QTC 408 ms. X-rays interpreted by me (1pt min.)? @ -Not obtained CT interpreted by me (1pt min.)? @ -Not obtained U/S interpreted by me (1pt. min.)? @ -Not obtained What testing was considered but not performed? (CT, X-rays, U/S, labs)? Why? @ -None What meds were considered but not given? Why? @ -None Did you discuss the management of the patient with other professionals? @ -Yes, Dr. Martinez, who accepts the patient for admission. Did you reconcile home meds? @ -No Was smoking cessation discussed for >3mins.? @ -No Was critical care preformed (if so, how long)? @ -No Were there social determinants of health that impacted care today? How? (Homelessness, low income, unemployed, alcoholism, drug addiction, transportat ion, low edu. Level, literacy, decrease access to med. care, usp, rehab)? @ -No Was there de-escalation of care discussed even if they declined? (Discuss DNR or withdrawal of care, Hospice)? @ -No What co-morbidities impacted this encounter? (DM, HTN, Smoking, COPD, CAD, Cancer, CVA, Hep., AIDS, mental health diagnosis, sleep apnea, morbid obesity)? @ -Diabetes mellitus Was patient admitted / discharged? @ -Admitted. Patient given 500 mL bolus of IV fluids by EMS and she was given another 1000mL bolus of IV fluids in the emergency department. Reglan and Yen nix administered as well for nausea/vomiting, which was more effective than the Zofran initially, however she proceeded to vomit again shortly afterwards and was given 4mg of Zofran. Patient's lab values consistent with DKA, based on her blood sugar of 329, acetone positive, carbon dioxide of 8, and anion gap of 25. pH 7.29 on VBG. Leukocytosis is also present, which is likely reactive. Patient started on DKA protocol and magnesium replaced with 2g MgSO4. Patient admitted to medicine for further management of DKA. Undiagnosed new problem with uncertain prognosis? @ -None Drug Therapy requiring intensive monitoring for toxicity (Heparin, Nitro, Insulin, Cardizem)? @ -None Were any procedures done? @ -None Diagnosis/symptom? @ -DKA, N/V Acute, or Chronic, or Acute on Chronic? @ -Acute Uncomplicated (without systemic symptoms) or Complicated (systemic symptoms)? @ -Complicated Side effects of treatment? @ -None Exacerbation, Progression, or Severe Exacerbation] @ -Not applicable Poses a threat to life or bodily function? @ -Yes This case was discussed in detail with the attending ED physician, Dr. Herrera. Presentation, findings, and treatment plan discussed in detail as well. - Lab Data Result diagrams: 12/22/22 06:15 12/22/22 06:15 Lab Results 12/22/22 12/22/22 12/22/22 Range/Units 06:15 06:15 06:15 WBC 19.6 H (3.8-10.6) k/uL RBC 4.06 (3.80-5.40) m/uL Hgb 11.0 L (11.4-16.0) gm/dL Hct 36.5 (34.0-46.0) % MCV 89.9 (80.0-100.0) fL MCH 27.1 (25.0-35.0) pg MCHC 30.2 L (31.0-37.0) g/dL RDW 13.4 (11.5-15.5) % Plt Count 309 (150-450) k/uL MPV 8.0 Neutrophils % 88 % Lymphocytes % 8 % Monocytes % 4 % Eosinophils % 0 % Basophils % 0 % Neutrophils # 17.3 H (1.3-7.7) k/uL Lymphocytes # 1.5 (1.0-4.8) k/uL Monocytes # 0.7 (0-1.0) k/uL Eosinophils # 0.1 (0-0.7) k/uL Basophils # 0.0 (0-0.2) k/uL VBG pH (7.31-7.41) VBG pCO2 (37-51) mmHg VBG HCO3 (24-28) mmol/L Sodium 137 (137-145) mmol/L Potassium 3.7 (3.5-5.1) mmol/L Chloride 104 (98-107) mmol/L Carbon Dioxide 8 L* (22-30) mmol/L Anion Gap 25 mmol/L BUN 15 (7-17) mg/dL Creatinine 0.65 (0.52-1.04) mg/dL Est GFR (CKD-EPI)AfAm >90 (>60 ml/min/1.73 sqM) Est GFR (CKD-EPI)NonAf >90 (>60 ml/min/1.73 sqM) Glucose 329 H (74-99) mg/dL POC Glucose (mg/dL) (70-110) mg/dL POC Glu Campaign Specialist ID Plasma Lactic Acid Kale 1.8 (0.7-2.0) mmol/L Calcium 9.0 (8.4-10.2) mg/dL Phosphorus 5.0 H (2.5-4.5) mg/dL Magnesium 1.2 L (1.6-2.3) mg/dL Total Bilirubin 0.6 (0.2-1.3) mg/dL AST 19 (14-36) U/L ALT 17 (4-34) U/L Alkaline Phosphatase 83 (38-126) U/L Total Protein 7.3 (6.3-8.2) g/dL Albumin 4.4 (3.5-5.0) g/dL TSH 2.040 (0.465-4.680) mIU/L Urine Color Urine Appearance (Clear) Urine pH (5.0-8.0) Ur Specific [place] (1.001-1.035) Urine Protein (Negative) Urine Glucose (UA) (Negative) Urine Ketones (Negative) Urine Blood (Negative) Urine Nitrite (Negative) Urine Bilirubin (Negative) Urine Urobilinogen (<2.0) mg/dL Ur Leukocyte Esterase (Negative) Urine RBC (0-5) /hpf Urine WBC (0-5) /hpf Ur Squamous Epith Cells (0-4) /hpf Urine Yeast (Budding) (None) /hpf Urine HCG, Qual (Not Detectd) 12/22/22 12/22/22 12/22/22 Range/Units 06:25 06:48 06:56 WBC (3.8-10.6) k/uL RBC (3.80-5.40) m/uL Hgb (11.4-16.0) gm/dL Hct (34.0-46.0) % MCV (80.0-100.0) fL MCH (25.0-35.0) pg MCHC (31.0-37.0) g/dL RDW (11.5-15.5) % Plt Count (150-450) k/uL MPV Neutrophils % % Lymphocytes % % Monocytes % % Eosinophils % % Basophils % % Neutrophils # (1.3-7.7) k/uL Lymphocytes # (1.0-4.8) k/uL Monocytes # (0-1.0) k/uL Eosinophils # (0-0.7) k/uL Basophils # (0-0.2) k/uL VBG pH (7.31-7.41) VBG pCO2 (37-51) mmHg VBG HCO3 (24-28) mmol/L Sodium (137-145) mmol/L Potassium (3.5-5.1) mmol/L Chloride (98-107) mmol/L Carbon Dioxide (22-30) mmol/L Anion Gap mmol/L BUN (7-17) mg/dL Creatinine (0.52-1.04) mg/dL Est GFR (CKD-EPI)AfAm (>60 ml/min/1.73 sqM) Est GFR (CKD-EPI)NonAf (>60 ml/min/1.73 sqM) Glucose (74-99) mg/dL POC Glucose (mg/dL) 318 H (70-110) mg/dL POC Glu Campaign Specialist ID Ibrahima Parker Plasma Lactic Acid Kale (0.7-2.0) mmol/L Calcium (8.4-10.2) mg/dL Phosphorus (2.5-4.5) mg/dL Magnesium (1.6-2.3) mg/dL Total Bilirubin (0.2-1.3) mg/dL AST (14-36) U/L ALT (4-34) U/L Alkaline Phosphatase (38-126) U/L Total Protein (6.3-8.2) g/dL Albumin (3.5-5.0) g/dL TSH (0.465-4.680) mIU/L Urine Color Light Yellow Urine Appearance Clear (Clear) Urine pH 5.5 (5.0-8.0) Ur Specific [place] 1.019 (1.001-1.035) Urine Protein Trace H (Negative) Urine Glucose (UA) 4+ H (Negative) Urine Ketones 4+ H (Negative) Urine Blood Negative (Negative) Urine Nitrite Negative (Negative) Urine Bilirubin Negative (Negative) Urine Urobilinogen 0.2 (<2.0) mg/dL Ur Leukocyte Esterase Moderate (Negative) Urine RBC 2 (0-5) /hpf Urine WBC 15 H (0-5) /hpf Ur Squamous Epith Cells 20 H (0-4) /hpf Urine Yeast (Budding) Few H (None) /hpf Urine HCG, Qual Not Detected (Not Detectd) 12/22/22 12/22/22 Range/Units 07:02 07:24 WBC (3.8-10.6) k/uL RBC (3.80-5.40) m/uL Hgb (11.4-16.0) gm/dL Hct (34.0-46.0) % MCV (80.0-100.0) fL MCH (25.0-35.0) pg MCHC (31.0-37.0) g/dL RDW (11.5-15.5) % Plt Count (150-450) k/uL MPV Neutrophils % % Lymphocytes % % Monocytes % % Eosinophils % % Basophils % % Neutrophils # (1.3-7.7) k/uL Lymphocytes # (1.0-4.8) k/uL Monocytes # (0-1.0) k/uL Eosinophils # (0-0.7) k/uL Basophils # (0-0.2) k/uL VBG pH 7.29 L (7.31-7.41) VBG pCO2 25 L (37-51) mmHg VBG HCO3 14 L (24-28) mmol/L Sodium (137-145) mmol/L Potassium (3.5-5.1) mmol/L Chloride (98-107) mmol/L Carbon Dioxide (22-30) mmol/L Anion Gap mmol/L BUN (7-17) mg/dL Creatinine (0.52-1.04) mg/dL Est GFR (CKD-EPI)AfAm (>60 ml/min/1.73 sqM) Est GFR (CKD-EPI)NonAf (>60 ml/min/1.73 sqM) Glucose (74-99) mg/dL POC Glucose (mg/dL) 257 H (70-110) mg/dL POC Glu Campaign Specialist ID Wade Wright Plasma Lactic Acid Kale (0.7-2.0) mmol/L Calcium (8.4-10.2) mg/dL Phosphorus (2.5-4.5) mg/dL Magnesium (1.6-2.3) mg/dL Total Bilirubin (0.2-1.3) mg/dL AST (14-36) U/L ALT (4-34) U/L Alkaline Phosphatase (38-126) U/L Total Protein (6.3-8.2) g/dL Albumin (3.5-5.0) g/dL TSH (0.465-4.680) mIU/L Urine Color Urine Appearance (Clear) Urine pH (5.0-8.0) Ur Specific [place] (1.001-1.035) Urine Protein (Negative) Urine Glucose (UA) (Negative) Urine Ketones (Negative) Urine Blood (Negative) Urine Nitrite (Negative) Urine Bilirubin (Negative) Urine Urobilinogen (<2.0) mg/dL Ur Leukocyte Esterase (Negative) Urine RBC (0-5) /hpf Urine WBC (0-5) /hpf Ur Squamous Epith Cells (0-4) /hpf Urine Yeast (Budding) (None) /hpf Urine HCG, Qual (Not Detectd) Disposition Clinical Impression: DKA (diabetic ketoacidosis), Nausea and vomiting Disposition: ADMITTED IP TO THIS HOSP
[2022-12-22 06:25] LABS: Basophils % (A) 0 %; Eosinophils # (A) 0.1 k/uL (0-0.7); Eosinophils % (A) 0 %; HCT 36.5 % (34.0-46.0); Lymphocytes # (A) 1.5 k/uL (1.0-4.8); Lymphocytes % (A) 8 %; MCH 27.1 pg (25.0-35.0); MCHC 30.2 g/dL (31.0-37.0); MCV 89.9 fL (80.0-100.0); Monocytes # (A) 0.7 k/uL (0-1.0); Monocytes % (A) 4 %; Neutrophils # (A) 17.3 k/uL (1.3-7.7); Neutrophils % (A) 88 %; Platelet Count 309 k/uL (150-450); RBC 4.06 m/uL (3.80-5.40); RDW 13.4 % (11.5-15.5); WBC 19.6 k/uL (3.8-10.6)
[2022-12-22 06:26] LABS: Glucose,Whole Blood 318 mg/dL (70-110)
[2022-12-22 06:40] LABS: ALT 17 U/L (4-34); AST 19 U/L (14-36); African American GFR (CKD) >90 (>60 ml/min/1.73 sqM); Albumin 4.4 g/dL (3.5-5.0); Alkaline Phosphatase 83 U/L (38-126); Anion Gap 25 mmol/L; Blood Urea Nitrogen 15 mg/dL (7-17); Chloride 104 mmol/L (98-107); Glucose 329 mg/dL (74-99); Magnesium 1.2 mg/dL (1.6-2.3); Non-African American GFR(CKD) >90 (>60 ml/min/1.73 sqM); Potassium 3.7 mmol/L (3.5-5.1); Sodium 137 mmol/L (137-145); Total Bilirubin 0.6 mg/dL (0.2-1.3); Total Protein 7.3 g/dL (6.3-8.2)
[2022-12-22 07:08] LABS: Carbon Dioxide 8 mmol/L (22-30)
[2022-12-22 07:18] LABS: VBG PH 7.29 (7.31-7.41)
[2022-12-22] MEDS ORDERED: ONDANSETRON 4 MG/2 ML VIAL IVP STA (07:25)
[2022-12-22 07:26] LABS: Glucose,Whole Blood 257 mg/dL (70-110)
[2022-12-22 07:27] LABS: Color,Urine Light Yellow
[2022-12-22 07:28] LABS: Appearance,Urine Clear (Clear); Bilirubin,Urine Negative (Negative); Blood,Urine Negative (Negative); Glucose,Urine (UA) 4+ (Negative); Ketones,Urine 4+ (Negative); Leukocyte Esterase,Urine Moderate (Negative); Nitrite,Urine Negative (Negative); PH, Urine 5.5 (5.0-8.0); Protein,Urine Trace (Negative); RBC,Urine 2 /hpf (0-5); Specific Gravity,Urine 1.019 (1.001-1.035); Urobilinogen,Urine 0.2 mg/dL (<2.0); WBC,Urine 15 /hpf (0-5)
[2022-12-22 07:29] LABS: Budding Yeast,Urine Few /hpf; Squamous Epithelial Cell,Urine 20 /hpf (0-4)
[2022-12-22] MEDS: SODIUM CHLORIDE 0.9% 1,000 ML IV SCH ×2 (07:59→11:44)
[2022-12-22] MEDS: INSULIN REGULAR 100 UNIT in SODIUM CHLORIDE 0.9% 100 ML IV SCH (08:00)
[2022-12-22] MEDS: D5-0.45% NACL WITH KCL 20MEQ/L 1,000 ML IV SCH ×4 (08:00→23:04)
[2022-12-22] MEDS ORDERED: KETOROLAC 15 MG/ML 1 ML VIAL IVP PRN (08:07)
[2022-12-22] MEDS ORDERED: ACETAMINOPHEN TAB 325 MG TAB PO PRN (08:07)
[2022-12-22] MEDS ORDERED: NALOXONE 0.4 MG/ML 1 ML VIAL IV PRN (08:07)
[2022-12-22] MEDS ORDERED: IBUPROFEN 400 MG TAB PO PRN (08:07)
[2022-12-22 08:30] LABS: Glucose,Whole Blood 215 mg/dL (70-110)
[2022-12-22 09:24] LABS: Glucose,Whole Blood 197 mg/dL (70-110)
[2022-12-22 10:28] LABS: Glucose,Whole Blood 163 mg/dL (70-110)
[2022-12-22 11:33] LABS: African American GFR (CKD) >90 (>60 ml/min/1.73 sqM); Anion Gap 17 mmol/L; Blood Urea Nitrogen 12 mg/dL (7-17); Carbon Dioxide 12 mmol/L (22-30); Chloride 110 mmol/L (98-107); Glucose 175 mg/dL (74-99); Non-African American GFR(CKD) >90 (>60 ml/min/1.73 sqM); Phosphorus 3.3 mg/dL (2.5-4.5); Potassium 4.1 mmol/L (3.5-5.1); Sodium 139 mmol/L (137-145)
[2022-12-22 11:33] LABS: Glucose,Whole Blood 170 mg/dL (70-110)
[2022-12-22] MEDS: MAGNESIUM SULFATE-D5W PMX 1 GM in DEXTROSE/WATER 1 100ML.BAG IVPB SCH ×2 (11:44→12:55)
[2022-12-22 12:25] LABS: Glucose,Whole Blood 157 mg/dL (70-110)
[2022-12-22 13:24] LABS: Glucose,Whole Blood 185 mg/dL (70-110)
[2022-12-22 14:35] LABS: African American GFR (CKD) >90 (>60 ml/min/1.73 sqM); Anion Gap 16 mmol/L; Blood Urea Nitrogen 11 mg/dL (7-17); Carbon Dioxide 13 mmol/L (22-30); Chloride 107 mmol/L (98-107); Glucose 210 mg/dL (74-99); Non-African American GFR(CKD) >90 (>60 ml/min/1.73 sqM); Phosphorus 2.9 mg/dL (2.5-4.5); Sodium 136 mmol/L (137-145)
--- NOTE | 2022-12-22 14:38 | P.HPIM ---
History of Present Illness H&P Date: 12/22/22 Chief Complaint: nausea, vomiting 22-year-old woman with medical history of diabetes presented for nausea and vomiting. Patient is a poor historian due to participation with interview. History is taken from chart review, ER provider signout. From a standing, patient ran out of her Lantus 1 week ago and was scheduled to see her new primary care physician today, however, she was unable to make the clinic and she developed nausea, vomiting, abdominal pain. Patient was previously hospitalized for diabetic ketoacidosis and was instructed on the importance of insulin man agement on discharge. Patient did not participate in review of systems. In the emergency room, patient was afebrile, 133/62, heart rate 117, 100% on room air. CBC shows leukocytosis of 19.6, otherwise unremarkable. Basic metabolic panel shows sodium of 136, CO2 of 8. Liver function tests are un remarkable. Magnesium was 1.2. TSH is 2.04. VBG shows pH of 7.29, pCO2 of 25. UA shows 4+ glucose, 4+ ketones, 15 white blood cells, 20 epithelial cells, few yeast. Acetone was positive. EKG was personal interpreted by myself, does demonstrate lead reversal of limb leads, shows sinus tachycardia. Case was discussed the emergency room flutter incision was made to admit the patient for further management. Patient did not participate in review of systems Gen: awake, alert HEENT: normocephalic, atraumatic, good hearing acuity, moist mucous membranes Resp: good air exchange, breathing comfortably with no accessory muscle use CVS: good distal perfusion x 4, GI: soft, NTTP, ND : no SPT, no CVAT, charles catheter not present MSK: no pitting edema, no clubbing Neuro: non-focal, moving all extremities Psych: uncooperative, euthymic mood Labs and imaging as above Assessment: Diabetic ketoacidosis, type I Sinus tachycardia Plan: Vital signs reviewed and noted in the HPI Lab work reviewed and noted in the HPI EKG is personally interpreted and noted in the HPI Case was discussed with the Emergency Room provider and decision was made to admit the patient for diabetic ketoacidosis Continue insulin drip Basic metabolic panel every 4 hours IV fluids Nothing by mouth Patient is full code Past Medical History Past Medical History: Diabetes Mellitus History of Any Multi-Drug Resistant Organisms: None Reported Additional Past Surgical History / Comment(s): Facial reconstruction Past Anesthesia/Blood Transfusion Reactions: No Reported Reaction Past Psychological History: No Psychological Hx Reported, Schizoaffective Disorder Smoking Status: Current every day smoker Past Alcohol Use History: None Reported Past Drug Use History: Marijuana Medications and Allergies Home Medications Medication Instructions Recorded Confirmed Type Insulin Lispro [humaLOG Kwikpen] See Protocol SQ TID-W/MEALS 30 03/18/22 12/22/22 Rx Days #5 each Insulin Glargine,Hum.rec.anlog 25 units SQ HS@2200 12/22/22 12/22/22 History [Lantus Solostar Pen] Allergies Allergy/AdvReac Type Severity Reaction Status Date / Time No Known Allergies Allergy Verified 12/22/22 08:33 Physical Exam Osteopathic Statement: *. No significant issues noted on an osteopathic structural exam other than those noted in the History and Physical/Consult. Vitals: Vital Signs Temp Pulse Resp BP Pulse Ox 12/22/22 12:59 97 16 120/72 99 12/22/22 10:46 71 20 127/80 100 12/22/22 07:05 95 20 131/83 100 12/22/22 05:59 98.2 F 124 H 22 139/84 100 Intake and Output 12/21/22 12/22/22 12/22/22 22:59 06:59 14:59 Other: Weight 47.627 kg Results CBC & Chem 7: 12/22/22 06:15 12/22/22 10:26 Labs: Abnormal Lab Results - Last 24 Hours (Table) 12/22/22 12/22/22 12/22/22 Range/Units 06:15 06:15 06:25 WBC 19.6 H (3.8-10.6) k/uL Hgb 11.0 L (11.4-16.0) gm/dL MCHC 30.2 L (31.0-37.0) g/dL Neutrophils # 17.3 H (1.3-7.7) k/uL VBG pH (7.31-7.41) VBG pCO2 (37-51) mmHg VBG HCO3 (24-28) mmol/L Chloride (98-107) mmol/L Carbon Dioxide 8 L* (22-30) mmol/L Glucose 329 H (74-99) mg/dL POC Glucose (mg/dL) 318 H (70-110) mg/dL Phosphorus 5.0 H (2.5-4.5) mg/dL Magnesium 1.2 L (1.6-2.3) mg/dL Urine Protein (Negative) Urine Glucose (UA) (Negative) Urine Ketones (Negative) Urine WBC (0-5) /hpf Ur Squamous Epith Cells (0-4) /hpf Urine Yeast (Budding) (None) /hpf 12/22/22 12/22/22 12/22/22 Range/Units 06:48 07:02 07:24 WBC (3.8-10.6) k/uL Hgb (11.4-16.0) gm/dL MCHC (31.0-37.0) g/dL Neutrophils # (1.3-7.7) k/uL VBG pH 7.29 L (7.31-7.41) VBG pCO2 25 L (37-51) mmHg VBG HCO3 14 L (24-28) mmol/L Chloride (98-107) mmol/L Carbon Dioxide (22-30) mmol/L Glucose (74-99) mg/dL POC Glucose (mg/dL) 257 H (70-110) mg/dL Phosphorus (2.5-4.5) mg/dL Magnesium (1.6-2.3) mg/dL Urine Protein Trace H (Negative) Urine Glucose (UA) 4+ H (Negative) Urine Ketones 4+ H (Negative) Urine WBC 15 H (0-5) /hpf Ur Squamous Epith Cells 20 H (0-4) /hpf Urine Yeast (Budding) Few H (None) /hpf 12/22/22 12/22/22 12/22/22 Range/Units 08:29 09:23 10:24 WBC (3.8-10.6) k/uL Hgb (11.4-16.0) gm/dL MCHC (31.0-37.0) g/dL Neutrophils # (1.3-7.7) k/uL VBG pH (7.31-7.41) VBG pCO2 (37-51) mmHg VBG HCO3 (24-28) mmol/L Chloride (98-107) mmol/L Carbon Dioxide (22-30) mmol/L Glucose (74-99) mg/dL POC Glucose (mg/dL) 215 H 197 H 163 H (70-110) mg/dL Phosphorus (2.5-4.5) mg/dL Magnesium (1.6-2.3) mg/dL Urine Protein (Negative) Urine Glucose (UA) (Negative) Urine Ketones (Negative) Urine WBC (0-5) /hpf Ur Squamous Epith Cells (0-4) /hpf Urine Yeast (Budding) (None) /hpf 12/22/22 12/22/22 12/22/22 Range/Units 10:26 11:32 12:23 WBC (3.8-10.6) k/uL Hgb (11.4-16.0) gm/dL MCHC (31.0-37.0) g/dL Neutrophils # (1.3-7.7) k/uL VBG pH (7.31-7.41) VBG pCO2 (37-51) mmHg VBG HCO3 (24-28) mmol/L Chloride 110 H (98-107) mmol/L Carbon Dioxide 12 L (22-30) mmol/L Glucose 175 H (74-99) mg/dL POC Glucose (mg/dL) 170 H 157 H (70-110) mg/dL Phosphorus (2.5-4.5) mg/dL Magnesium (1.6-2.3) mg/dL Urine Protein (Negative) Urine Glucose (UA) (Negative) Urine Ketones (Negative) Urine WBC (0-5) /hpf Ur Squamous Epith Cells (0-4) /hpf Urine Yeast (Budding) (None) /hpf 12/22/22 Range/Units 13:21 WBC (3.8-10.6) k/uL Hgb (11.4-16.0) gm/dL MCHC (31.0-37.0) g/dL Neutrophils # (1.3-7.7) k/uL VBG pH (7.31-7.41) VBG pCO2 (37-51) mmHg VBG HCO3 (24-28) mmol/L Chloride (98-107) mmol/L Carbon Dioxide (22-30) mmol/L Glucose (74-99) mg/dL POC Glucose (mg/dL) 185 H (70-110) mg/dL Phosphorus (2.5-4.5) mg/dL Magnesium (1.6-2.3) mg/dL Urine Protein (Negative) Urine Glucose (UA) (Negative) Urine Ketones (Negative) Urine WBC (0-5) /hpf Ur Squamous Epith Cells (0-4) /hpf Urine Yeast (Budding) (None) /hpf
[2022-12-22] MEDS: ONDANSETRON 4 MG/2 ML VIAL IVP PRN ×2 (14:54→22:55)
[2022-12-22 15:46] LABS: Glucose,Whole Blood 188 mg/dL (70-110)
[2022-12-22 15:46] LABS: Glucose,Whole Blood 145 mg/dL (70-110)
[2022-12-22 17:08] LABS: Glucose,Whole Blood 139 mg/dL (70-110)
[2022-12-22 18:02] LABS: Glucose,Whole Blood 175 mg/dL (70-110)
[2022-12-22 18:38] LABS: African American GFR (CKD) >90 (>60 ml/min/1.73 sqM); Anion Gap 14 mmol/L; Blood Urea Nitrogen 10 mg/dL (7-17); Carbon Dioxide 13 mmol/L (22-30); Chloride 107 mmol/L (98-107); Glucose 200 mg/dL (74-99); Non-African American GFR(CKD) >90 (>60 ml/min/1.73 sqM); Phosphorus 3.1 mg/dL (2.5-4.5); Potassium 3.9 mmol/L (3.5-5.1); Sodium 134 mmol/L (137-145)
[2022-12-22 19:01] LABS: Glucose,Whole Blood 200 mg/dL (70-110)
[2022-12-22 19:44] LABS: Glucose,Whole Blood 189 mg/dL (70-110)
[2022-12-22] MEDS ORDERED: Potassium Replacement Protocol 1 EACH MISC MISCELLANE PRN (19:52)
[2022-12-22] MEDS ORDERED: MAG HYDROX/AL HYDROX/SIMETH 30 ML CUP PO PRN (20:40)
[2022-12-22 20:43] LABS: Glucose,Whole Blood 166 mg/dL (70-110)
[2022-12-22] MEDS ORDERED: diphenhydrAMINE 50 MG/ML 1 ML VIAL IVP STA (21:11)
[2022-12-22 21:43] LABS: Glucose,Whole Blood 148 mg/dL (70-110)
[2022-12-22 22:42] LABS: Glucose,Whole Blood 150 mg/dL (70-110)
[2022-12-22] MEDS: POTASSIUM CHLORIDE ER 20 MEQ TAB.ER PO SCH (22:55)
[2022-12-22] MEDS: PANTOPRAZOLE 40 MG TABLET PO SCH (22:55)
[2022-12-22 23:41] LABS: Glucose,Whole Blood 162 mg/dL (70-110)
[2022-12-23 00:30] LABS: African American GFR (CKD) >90 (>60 ml/min/1.73 sqM); Anion Gap 12 mmol/L; Blood Urea Nitrogen 7 mg/dL (7-17); Calcium 8.2 mg/dL (8.4-10.2); Carbon Dioxide 14 mmol/L (22-30); Chloride 108 mmol/L (98-107); Glucose 156 mg/dL (74-99); Non-African American GFR(CKD) >90 (>60 ml/min/1.73 sqM); Phosphorus 2.3 mg/dL (2.5-4.5); Potassium 3.7 mmol/L (3.5-5.1); Sodium 134 mmol/L (137-145)
[2022-12-23 00:40] LABS: Glucose,Whole Blood 169 mg/dL (70-110)
[2022-12-23] MEDS: POTASSIUM CHLORIDE ER 20 MEQ TAB.ER PO SCH (00:41)
[2022-12-23 01:46] LABS: Glucose,Whole Blood 179 mg/dL (70-110)
[2022-12-23 02:43] LABS: Glucose,Whole Blood 171 mg/dL (70-110)
[2022-12-23] MEDS ORDERED: LORazepam 2 MG/ML INJ IV STA (03:31)
[2022-12-23 03:49] LABS: Glucose,Whole Blood 204 mg/dL (70-110)
[2022-12-23 04:42] LABS: Glucose,Whole Blood 187 mg/dL (70-110)
[2022-12-23 05:48] LABS: Glucose,Whole Blood 159 mg/dL (70-110)
[2022-12-23] MEDS: D5-0.45% NACL WITH KCL 20MEQ/L 1,000 ML IV SCH ×3 (06:31→22:24)
[2022-12-23 06:39] LABS: African American GFR (CKD) >90 (>60 ml/min/1.73 sqM); Anion Gap 8 mmol/L; Blood Urea Nitrogen 5 mg/dL (7-17); Calcium 7.9 mg/dL (8.4-10.2); Carbon Dioxide 17 mmol/L (22-30); Chloride 109 mmol/L (98-107); Glucose 163 mg/dL (74-99); Non-African American GFR(CKD) >90 (>60 ml/min/1.73 sqM); Phosphorus 2.9 mg/dL (2.5-4.5); Potassium 3.9 mmol/L (3.5-5.1); Sodium 134 mmol/L (137-145)
[2022-12-23 06:40] LABS: Glucose,Whole Blood 170 mg/dL (70-110)
[2022-12-23 07:40] LABS: Glucose,Whole Blood 174 mg/dL (70-110)
[2022-12-23] MEDS: PANTOPRAZOLE 40 MG TABLET PO SCH ×2 (07:58→18:38)
[2022-12-23 08:42] LABS: Glucose,Whole Blood 229 mg/dL (70-110)
[2022-12-23 09:46] LABS: Glucose,Whole Blood 218 mg/dL (70-110)
[2022-12-23 10:49] LABS: Glucose,Whole Blood 203 mg/dL (70-110)
[2022-12-23 11:45] LABS: Glucose,Whole Blood 181 mg/dL (70-110)
[2022-12-23 12:44] LABS: ALT 17 U/L (4-34); AST 24 U/L (14-36); African American GFR (CKD) >90 (>60 ml/min/1.73 sqM); Albumin 3.2 g/dL (3.5-5.0); Alkaline Phosphatase 64 U/L (38-126); Anion Gap 9 mmol/L; Blood Urea Nitrogen 3 mg/dL (7-17); Carbon Dioxide 16 mmol/L (22-30); Chloride 110 mmol/L (98-107); Glucose 152 mg/dL (74-99); Non-African American GFR(CKD) >90 (>60 ml/min/1.73 sqM); Phosphorus 2.5 mg/dL (2.5-4.5); Potassium 3.7 mmol/L (3.5-5.1); Sodium 135 mmol/L (137-145); Total Bilirubin 0.4 mg/dL (0.2-1.3)
[2022-12-23 12:48] LABS: Glucose,Whole Blood 128 mg/dL (70-110)
[2022-12-23 13:49] LABS: Glucose,Whole Blood 168 mg/dL (70-110)
[2022-12-23 14:07] VITALS: BMI 20.5
[2022-12-23] MEDS: ONDANSETRON 4 MG/2 ML VIAL IVP PRN ×2 (14:18→21:37)
--- NOTE | 2022-12-23 14:18 | P.PN ---
Subjective Progress Note Date: 12/23/22 Pt is still not participating in my interview. Does report that she is now eating meals. Will transition her insulin gtt to SQ insulin Gen: awake, alert HEENT: normocephalic, atraumatic, good hearing acuity, moist mucous membranes Resp: good air exchange, breathing comfortably with no accessory muscle use CVS: good distal perfusion x 4, GI: soft, NTTP, ND : no SPT, no CVAT, charles catheter not present MSK: no pitting edema, no clubbing Neuro: non-focal, moving all extremities Psych: uncooperative, euthymic mood Assessment: Diabetic ketoacidosis, type I Sinus tachycardia Plan: Pt is afebrile, 110/68, HR 69, 100% RA BMP shows gap is closed, Glu 152, CO2 16. Transition insulin drip to SQ insulin Basic metabolic panel every 4 hours IV fluids Carbo consistent diet Patient is full code Objective - Vital Signs Vital signs: Vital Signs Temp 98.3 F 12/23/22 11:58 Pulse 69 12/23/22 11:58 Resp 16 12/23/22 11:58 BP 110/68 12/23/22 11:58 Pulse Ox 100 12/23/22 11:58 FiO2 Intake & Output 12/22/22 12/23/22 12/23/22 18:59 06:59 18:59 Intake Total 41.146 22.777 Output Total 50 Balance 41.146 -50 22.777 Weight 47.627 kg 47.627 kg Intake: Intake, IV Titration 41.146 22.777 Amount Insulin Regular 100 unit 41.146 22.777 In Sodium Chloride 0.9% 100 ml @ 0.1 UNITS/KG/HR 4.81 mls/hr IV .Q21H [facility] Rx#:[id number] Output: Emesis 50 Other: Voiding Method Toilet # Voids 2 2 - Labs CBC & Chem 7: 12/22/22 06:15 12/23/22 11:54 Labs: Abnormal Lab Results - Last 24 Hours (Table) 12/22/22 12/22/22 12/22/22 Range/Units 13:58 14:40 15:44 Sodium 136 L (137-145) mmol/L Chloride (98-107) mmol/L Carbon Dioxide 13 L (22-30) mmol/L BUN (7-17) mg/dL Creatinine (0.52-1.04) mg/dL Glucose 210 H (74-99) mg/dL POC Glucose (mg/dL) 188 H 145 H (70-110) mg/dL Calcium (8.4-10.2) mg/dL Phosphorus (2.5-4.5) mg/dL Total Protein (6.3-8.2) g/dL Albumin (3.5-5.0) g/dL 12/22/22 12/22/22 12/22/22 Range/Units 16:46 17:42 18:14 Sodium 134 L (137-145) mmol/L Chloride (98-107) mmol/L Carbon Dioxide 13 L (22-30) mmol/L BUN (7-17) mg/dL Creatinine 0.48 L (0.52-1.04) mg/dL Glucose 200 H (74-99) mg/dL POC Glucose (mg/dL) 139 H 175 H (70-110) mg/dL Calcium (8.4-10.2) mg/dL Phosphorus (2.5-4.5) mg/dL Total Protein (6.3-8.2) g/dL Albumin (3.5-5.0) g/dL 12/22/22 12/22/22 12/22/22 Range/Units 18:41 19:40 20:42 Sodium (137-145) mmol/L Chloride (98-107) mmol/L Carbon Dioxide (22-30) mmol/L BUN (7-17) mg/dL Creatinine (0.52-1.04) mg/dL Glucose (74-99) mg/dL POC Glucose (mg/dL) 200 H 189 H 166 H (70-110) mg/dL Calcium (8.4-10.2) mg/dL Phosphorus (2.5-4.5) mg/dL Total Protein (6.3-8.2) g/dL Albumin (3.5-5.0) g/dL 12/22/22 12/22/22 12/22/22 Range/Units 21:40 22:40 23:23 Sodium 134 L (137-145) mmol/L Chloride 108 H (98-107) mmol/L Carbon Dioxide 14 L (22-30) mmol/L BUN (7-17) mg/dL Creatinine 0.44 L (0.52-1.04) mg/dL Glucose 156 H (74-99) mg/dL POC Glucose (mg/dL) 148 H 150 H (70-110) mg/dL Calcium 8.2 L (8.4-10.2) mg/dL Phosphorus 2.3 L (2.5-4.5) mg/dL Total Protein (6.3-8.2) g/dL Albumin (3.5-5.0) g/dL 12/22/22 12/23/22 12/23/22 Range/Units 23:39 00:39 01:40 Sodium (137-145) mmol/L Chloride (98-107) mmol/L Carbon Dioxide (22-30) mmol/L BUN (7-17) mg/dL Creatinine (0.52-1.04) mg/dL Glucose (74-99) mg/dL POC Glucose (mg/dL) 162 H 169 H 179 H (70-110) mg/dL Calcium (8.4-10.2) mg/dL Phosphorus (2.5-4.5) mg/dL Total Protein (6.3-8.2) g/dL Albumin (3.5-5.0) g/dL 12/23/22 12/23/22 12/23/22 Range/Units 02:41 03:48 04:40 Sodium (137-145) mmol/L Chloride (98-107) mmol/L Carbon Dioxide (22-30) mmol/L BUN (7-17) mg/dL Creatinine (0.52-1.04) mg/dL Glucose (74-99) mg/dL POC Glucose (mg/dL) 171 H 204 H 187 H (70-110) mg/dL Calcium (8.4-10.2) mg/dL Phosphorus (2.5-4.5) mg/dL Total Protein (6.3-8.2) g/dL Albumin (3.5-5.0) g/dL 12/23/22 12/23/22 12/23/22 Range/Units 05:47 05:56 06:38 Sodium 134 L (137-145) mmol/L Chloride 109 H (98-107) mmol/L Carbon Dioxide 17 L (22-30) mmol/L BUN 5 L (7-17) mg/dL Creatinine 0.46 L (0.52-1.04) mg/dL Glucose 163 H (74-99) mg/dL POC Glucose (mg/dL) 159 H 170 H (70-110) mg/dL Calcium 7.9 L (8.4-10.2) mg/dL Phosphorus (2.5-4.5) mg/dL Total Protein (6.3-8.2) g/dL Albumin (3.5-5.0) g/dL 12/23/22 12/23/22 12/23/22 Range/Units 07:38 08:40 09:44 Sodium (137-145) mmol/L Chloride (98-107) mmol/L Carbon Dioxide (22-30) mmol/L BUN (7-17) mg/dL Creatinine (0.52-1.04) mg/dL Glucose (74-99) mg/dL POC Glucose (mg/dL) 174 H 229 H 218 H (70-110) mg/dL Calcium (8.4-10.2) mg/dL Phosphorus (2.5-4.5) mg/dL Total Protein (6.3-8.2) g/dL Albumin (3.5-5.0) g/dL 12/23/22 12/23/22 12/23/22 Range/Units 10:48 11:43 11:54 Sodium 135 L (137-145) mmol/L Chloride 110 H (98-107) mmol/L Carbon Dioxide 16 L (22-30) mmol/L BUN 3 L (7-17) mg/dL Creatinine 0.44 L (0.52-1.04) mg/dL Glucose 152 H (74-99) mg/dL POC Glucose (mg/dL) 203 H 181 H (70-110) mg/dL Calcium 8.0 L (8.4-10.2) mg/dL Phosphorus (2.5-4.5) mg/dL Total Protein 6.0 L (6.3-8.2) g/dL Albumin 3.2 L (3.5-5.0) g/dL 12/23/22 12/23/22 Range/Units 12:46 13:42 Sodium (137-145) mmol/L Chloride (98-107) mmol/L Carbon Dioxide (22-30) mmol/L BUN (7-17) mg/dL Creatinine (0.52-1.04) mg/dL Glucose (74-99) mg/dL POC Glucose (mg/dL) 128 H 168 H (70-110) mg/dL Calcium (8.4-10.2) mg/dL Phosphorus (2.5-4.5) mg/dL Total Protein (6.3-8.2) g/dL Albumin (3.5-5.0) g/dL Microbiology - Last 24 Hours (Table) 12/22/22 06:48 Urine Culture - Final Urine,Voided
[2022-12-23] MEDS: INSULIN REGULAR 100 UNIT in SODIUM CHLORIDE 0.9% 100 ML IV SCH (14:23)
[2022-12-23 14:53] LABS: Glucose,Whole Blood 339 mg/dL (70-110)
[2022-12-23 15:50] LABS: Glucose,Whole Blood 421 mg/dL (70-110)
[2022-12-23] MEDS ORDERED: METOCLOPRAMIDE 5 MG/ML 2 ML VIAL IVP PRN (16:46)
[2022-12-23] MEDS ORDERED: PROCHLORPERAZINE INJ 10 MG/2 ML VIAL IVP PRN (16:46)
[2022-12-23] MEDS ORDERED: DEXTROSE 50% SYRINGE 50 ML IVP PRN ×2 (16:48)
[2022-12-23 16:55] LABS: Glucose,Whole Blood 414 mg/dL (70-110)
[2022-12-23] MEDS ORDERED: INSULIN ASPART (NovoLOG) 100 UNIT/ML VIAL SQ SCH (17:30)
[2022-12-23] MEDS ORDERED: INSULIN REGULAR 100 UNIT in SODIUM CHLORIDE 0.9% 100 ML IV SCH ×2 (17:30→18:30)
[2022-12-23 18:01] LABS: Glucose,Whole Blood 349 mg/dL (70-110)
[2022-12-23 19:08] LABS: Glucose,Whole Blood 257 mg/dL (70-110)
[2022-12-23 20:07] LABS: Glucose,Whole Blood 226 mg/dL (70-110)
[2022-12-23 21:03] LABS: Glucose,Whole Blood 203 mg/dL (70-110)
[2022-12-23] MEDS ORDERED: diphenhydrAMINE 50 MG/ML 1 ML VIAL IVP PRN (21:18)
[2022-12-23] MEDS: LORazepam 2 MG/ML INJ IV PRN (21:37)
[2022-12-23] MEDS ORDERED: INSULIN DETEMIR (LEVEMIR) 100 UNIT/ML SYR SQ SCH (22:00)
[2022-12-23 22:08] LABS: Glucose,Whole Blood 166 mg/dL (70-110)
[2022-12-23 23:09] LABS: Glucose,Whole Blood 143 mg/dL (70-110)
[2022-12-24 00:05] LABS: Glucose,Whole Blood 135 mg/dL (70-110)
[2022-12-24 01:07] LABS: Glucose,Whole Blood 135 mg/dL (70-110)
[2022-12-24 02:05] LABS: Glucose,Whole Blood 109 mg/dL (70-110)
[2022-12-24 03:04] LABS: Glucose,Whole Blood 120 mg/dL (70-110)
[2022-12-24 04:02] LABS: Glucose,Whole Blood 130 mg/dL (70-110)
[2022-12-24 05:08] LABS: Glucose,Whole Blood 149 mg/dL (70-110)
[2022-12-24 06:04] LABS: Glucose,Whole Blood 177 mg/dL (70-110)
[2022-12-24] MEDS: D5-0.45% NACL WITH KCL 20MEQ/L 1,000 ML IV SCH ×2 (06:30→14:21)
[2022-12-24] MEDS: ONDANSETRON 4 MG/2 ML VIAL IVP PRN (06:30)
[2022-12-24 06:59] LABS: Glucose,Whole Blood 271 mg/dL (70-110)
[2022-12-24] MEDS: PANTOPRAZOLE 40 MG TABLET PO SCH (07:46)
[2022-12-24 08:03] LABS: Glucose,Whole Blood 286 mg/dL (70-110)
[2022-12-24 08:59] LABS: Glucose,Whole Blood 245 mg/dL (70-110)
[2022-12-24 10:03] LABS: Glucose,Whole Blood 264 mg/dL (70-110)
[2022-12-24 11:02] LABS: Glucose,Whole Blood 249 mg/dL (70-110)
--- NOTE | 2022-12-24 11:18 | P.PN ---
Subjective Progress Note Date: 12/24/22 Pt reported to me that nausea is improving today. She is still requiring reglan PRN for nausea. Labs are pending. She had to be replaced on insulin gtt yesterday due to rebound hyperglycemia with recurrence of nuasea/vomiting. Gen: awake, alert HEENT: normocephalic, atraumatic, good hearing acuity, moist mucous membranes Resp: good air exchange, breathing comfortably with no accessory muscle use CVS: good distal perfusion x 4, GI: soft, NTTP, ND : no SPT, no CVAT, charles catheter not present MSK: no pitting edema, no clubbing Neuro: non-focal, moving all extremities Psych: uncooperative, euthymic mood Assessment: Diabetic ketoacidosis, type I Sinus tachycardia Plan: Pt is afebrile, 110/68, HR 69, 100% RA BMP shows gap is closed, Glu 152, CO2 16. Insulin gtt today, transition when tolerating PO. Basic metabolic panel every 4 hours IV fluids Carbo consistent diet Patient is full code Objective - Vital Signs Vital signs: Vital Signs Temp 98.2 F 12/24/22 08:00 Pulse 104 H 12/24/22 08:00 Resp 14 12/24/22 08:00 BP 135/84 12/24/22 08:00 Pulse Ox 100 12/24/22 08:00 FiO2 Intake & Output 12/23/22 12/24/22 12/24/22 18:59 06:59 18:59 Intake Total 22.777 31.611 1215.756 Balance 22.777 31.611 1215.756 Weight 47.627 kg Intake: Intake, IV Titration 22.777 31.611 1215.756 Amount D5-0.45% NaCl with KCl 1200 20Meq/l 1,000 ml @ 150 mls/hr IV .Q6H40M [facility] Rx# :[id number] Insulin Regular 100 unit 22.777 In Sodium Chloride 0.9% 100 ml @ 0.1 UNITS/KG/HR 4.81 mls/hr IV .Q21H FAUSTINO Rx#:[id number] Insulin Regular 100 unit 31.611 15.756 In Sodium Chloride 0.9% 100 ml @ 0.1 UNITS/KG/HR 4.81 mls/hr IV .Q21H [facility]USTINO Rx#:[id number] Other: Voiding Method Toilet Toilet # Voids 1 - Labs CBC & Chem 7: 12/22/22 06:15 12/23/22 11:54 Labs: Abnormal Lab Results - Last 24 Hours (Table) 12/23/22 12/23/22 12/23/22 Range/Units 11:43 11:54 12:46 Sodium 135 L (137-145) mmol/L Chloride 110 H (98-107) mmol/L Carbon Dioxide 16 L (22-30) mmol/L BUN 3 L (7-17) mg/dL Creatinine 0.44 L (0.52-1.04) mg/dL Glucose 152 H (74-99) mg/dL POC Glucose (mg/dL) 181 H 128 H (70-110) mg/dL Calcium 8.0 L (8.4-10.2) mg/dL Total Protein 6.0 L (6.3-8.2) g/dL Albumin 3.2 L (3.5-5.0) g/dL 12/23/22 12/23/22 12/23/22 Range/Units 13:42 14:51 15:47 Sodium (137-145) mmol/L Chloride (98-107) mmol/L Carbon Dioxide (22-30) mmol/L BUN (7-17) mg/dL Creatinine (0.52-1.04) mg/dL Glucose (74-99) mg/dL POC Glucose (mg/dL) 168 H 339 H 421 H (70-110) mg/dL Calcium (8.4-10.2) mg/dL Total Protein (6.3-8.2) g/dL Albumin (3.5-5.0) g/dL 12/23/22 12/23/22 12/23/22 Range/Units 16:54 18:00 19:07 Sodium (137-145) mmol/L Chloride (98-107) mmol/L Carbon Dioxide (22-30) mmol/L BUN (7-17) mg/dL Creatinine (0.52-1.04) mg/dL Glucose (74-99) mg/dL POC Glucose (mg/dL) 414 H 349 H 257 H (70-110) mg/dL Calcium (8.4-10.2) mg/dL Total Protein (6.3-8.2) g/dL Albumin (3.5-5.0) g/dL 12/23/22 12/23/22 12/23/22 Range/Units 20:05 21:01 22:07 Sodium (137-145) mmol/L Chloride (98-107) mmol/L Carbon Dioxide (22-30) mmol/L BUN (7-17) mg/dL Creatinine (0.52-1.04) mg/dL Glucose (74-99) mg/dL POC Glucose (mg/dL) 226 H 203 H 166 H (70-110) mg/dL Calcium (8.4-10.2) mg/dL Total Protein (6.3-8.2) g/dL Albumin (3.5-5.0) g/dL 12/23/22 12/24/22 12/24/22 Range/Units 23:07 00:04 01:05 Sodium (137-145) mmol/L Chloride (98-107) mmol/L Carbon Dioxide (22-30) mmol/L BUN (7-17) mg/dL Creatinine (0.52-1.04) mg/dL Glucose (74-99) mg/dL POC Glucose (mg/dL) 143 H 135 H 135 H (70-110) mg/dL Calcium (8.4-10.2) mg/dL Total Protein (6.3-8.2) g/dL Albumin (3.5-5.0) g/dL 12/24/22 12/24/22 12/24/22 Range/Units 03:03 04:00 05:04 Sodium (137-145) mmol/L Chloride (98-107) mmol/L Carbon Dioxide (22-30) mmol/L BUN (7-17) mg/dL Creatinine (0.52-1.04) mg/dL Glucose (74-99) mg/dL POC Glucose (mg/dL) 120 H 130 H 149 H (70-110) mg/dL Calcium (8.4-10.2) mg/dL Total Protein (6.3-8.2) g/dL Albumin (3.5-5.0) g/dL 12/24/22 12/24/22 12/24/22 Range/Units 06:02 06:57 08:01 Sodium (137-145) mmol/L Chloride (98-107) mmol/L Carbon Dioxide (22-30) mmol/L BUN (7-17) mg/dL Creatinine (0.52-1.04) mg/dL Glucose (74-99) mg/dL POC Glucose (mg/dL) 177 H 271 H 286 H (70-110) mg/dL Calcium (8.4-10.2) mg/dL Total Protein (6.3-8.2) g/dL Albumin (3.5-5.0) g/dL 12/24/22 12/24/22 12/24/22 Range/Units 08:57 10:01 11:00 Sodium (137-145) mmol/L Chloride (98-107) mmol/L Carbon Dioxide (22-30) mmol/L BUN (7-17) mg/dL Creatinine (0.52-1.04) mg/dL Glucose (74-99) mg/dL POC Glucose (mg/dL) 245 H 264 H 249 H (70-110) mg/dL Calcium (8.4-10.2) mg/dL Total Protein (6.3-8.2) g/dL Albumin (3.5-5.0) g/dL Microbiology - Last 24 Hours (Table) 12/22/22 06:48 Urine Culture - Final Urine,Voided
[2022-12-24 11:22] LABS: Basophils % (A) 0 %; Eosinophils # (A) 0.1 k/uL (0-0.7); Eosinophils % (A) 1 %; HCT 34.1 % (34.0-46.0); HGB 11.2 gm/dL (11.4-16.0); Lymphocytes # (A) 1.3 k/uL (1.0-4.8); Lymphocytes % (A) 16 %; MCH 29.4 pg (25.0-35.0); MCHC 32.9 g/dL (31.0-37.0); MCV 89.6 fL (80.0-100.0); Mean Platelet Volume 8.4; Monocytes # (A) 0.4 k/uL (0-1.0); Monocytes % (A) 4 %; Neutrophils # (A) 6.1 k/uL (1.3-7.7); Neutrophils % (A) 77 %; Platelet Count 320 k/uL (150-450); RBC 3.81 m/uL (3.80-5.40); RDW 13.9 % (11.5-15.5)
[2022-12-24 11:36] LABS: African American GFR (CKD) >90 (>60 ml/min/1.73 sqM); Anion Gap 8 mmol/L; Blood Urea Nitrogen <2 mg/dL (7-17); Calcium 8.1 mg/dL (8.4-10.2); Carbon Dioxide 19 mmol/L (22-30); Chloride 104 mmol/L (98-107); Glucose 263 mg/dL (74-99); Magnesium 1.4 mg/dL (1.6-2.3); Non-African American GFR(CKD) >90 (>60 ml/min/1.73 sqM); Potassium 3.9 mmol/L (3.5-5.1); Sodium 131 mmol/L (137-145)
[2022-12-24 12:02] LABS: Glucose,Whole Blood 210 mg/dL (70-110)
[2022-12-24] MEDS: LORazepam 2 MG/ML INJ IV PRN (12:43)
[2022-12-24 13:16] LABS: Glucose,Whole Blood 243 mg/dL (70-110)
[2022-12-24] MEDS ORDERED: PROMETHAZINE SUPPOSITORY 25 MG SUPP RECTAL PRN (13:50)
[2022-12-24] MEDS ORDERED: PROMETHAZINE 25 MG TAB PO PRN (13:50)
[2022-12-24] MEDS ORDERED: INSULIN DETEMIR (LEVEMIR) 100 UNIT/ML SYR SQ STA (13:59)
[2022-12-24 14:02] LABS: Glucose,Whole Blood 227 mg/dL (70-110)
[2022-12-24] MEDS: PANTOPRAZOLE 40 MG/10 ML VIAL IVP SCH (14:17)
[2022-12-24 16:28] LABS: Glucose,Whole Blood 291 mg/dL (70-110)
[2022-12-24] MEDS: INSULIN ASPART (NovoLOG) 100 UNIT/ML VIAL SQ SCH (16:42)
[2022-12-24 20:15] LABS: Glucose,Whole Blood 106 mg/dL (70-110)
[2022-12-25 06:10] LABS: Glucose,Whole Blood 103 mg/dL (70-110)
[2022-12-25 06:31] VITALS: TEMP 96.6
[2022-12-25] MEDS: ONDANSETRON 4 MG/2 ML VIAL IVP PRN (06:54)
[2022-12-25] MEDS ORDERED: INSULIN DETEMIR (LEVEMIR) 100 UNIT/ML SYR SQ SCH (07:00)
[2022-12-25] MEDS: PANTOPRAZOLE 40 MG/10 ML VIAL IVP SCH (08:58)
[2022-12-25 09:03] VITALS: BP 110/69; PULSE 90; RESP 15
[2022-12-25 09:56] LABS: Basophils % (A) 0 %; Eosinophils # (A) 0.1 k/uL (0-0.7); Eosinophils % (A) 2 %; HCT 35.5 % (34.0-46.0); Lymphocytes % (A) 30 %; MCHC 33.9 g/dL (31.0-37.0); MCV 88.6 fL (80.0-100.0); Mean Platelet Volume 8.3; Monocytes # (A) 0.4 k/uL (0-1.0); Monocytes % (A) 6 %; Neutrophils % (A) 61 %; Platelet Count 345 k/uL (150-450); RBC 4.01 m/uL (3.80-5.40); RDW 13.7 % (11.5-15.5); WBC 6.6 k/uL (3.8-10.6)
[2022-12-25] MEDS: INSULIN ASPART (NovoLOG) 100 UNIT/ML VIAL SQ SCH (09:59)
[2022-12-25 10:21] LABS: African American GFR (CKD) >90 (>60 ml/min/1.73 sqM); Anion Gap 14 mmol/L; Blood Urea Nitrogen 3 mg/dL (7-17); Calcium 8.7 mg/dL (8.4-10.2); Carbon Dioxide 17 mmol/L (22-30); Chloride 103 mmol/L (98-107); Glucose 163 mg/dL (74-99); Magnesium 1.6 mg/dL (1.6-2.3); Non-African American GFR(CKD) >90 (>60 ml/min/1.73 sqM); Potassium 4.1 mmol/L (3.5-5.1); Sodium 134 mmol/L (137-145)
--- NOTE | 2022-12-25 13:35 | P.DS ---
Providers Date of admission: 12/22/22 08:07 Expected date of discharge: 12/25/22 Attending physician: Cabrera Martinez MD Primary care physician: Physician Nonstaff Hospital Course: Assessment: Diabetic ketoacidosis, type I Sinus tachycardia 22-year-old woman with medical history of diabetes presented for nausea and vomiting. In the emergency room, patient was afebrile, 133/62, heart rate 117, 100% on room air. CBC shows leukocytosis of 19.6, otherwise unremarkable. Basic metabolic panel shows sodium of 136, CO2 of 8. Liver function tests are unremarkable. Magnesium was 1.2. TSH is 2.04. VBG shows pH of 7.29, pCO2 of 25. UA shows 4+ glucose, 4+ ketones, 15 white blood cells, 20 epithelial cells, few yeast. Acetone was positive. EKG was personal interpreted by myself, does demonstrate lead reversal of limb leads, shows sinus tachycardia. Case was discussed the emergency room flutter incision was made to admit the patient for further management. She was started on insulin drip and had frequent basic metabolic panel checks. She was given nausea medication intermittently. She is transition to subcu insulin and was tolerating a diet by the day of discharge. She was counseled extensively on importance of compliance with insulin therapy. She should follow-up with primary care provider. She was [facility] report Teo, I recommended that if she runs out of insulin again, not to wait a week before seeking medical care. I spent 34 minutes coordinating this discharge on 12/25 Gen: awake, alert HEENT: normocephalic, atraumatic, good hearing acuity, moist mucous membranes Resp: good air exchange, breathing comfortably with no accessory muscle use CVS: good distal perfusion x 4, GI: soft, NTTP, ND : no SPT, no CVAT, charles catheter not present MSK: no pitting edema, no clubbing Neuro: non-focal, moving all extremities Psych: uncooperative, euthymic mood Patient Condition at Discharge: Good Plan - Discharge Summary Discharge Rx Participant: No New Discharge Prescriptions: New Acetaminophen Tab [Tylenol] 650 mg PO Q6HR PRN tab PRN Reason: Mild Pain Or Fever > 100.5 Changed Insulin Lispro [humaLOG Kwikpen] 5 unit SQ TID-W/MEALS 30 Days #1 each Insulin Glargine,Hum.rec.anlog [Lantus Solostar Pen] 25 units SQ DAILY #1 each Discharge Medication List Acetaminophen Tab [Tylenol] 650 mg PO Q6HR PRN tab 12/25/22 [Rx] Insulin Glargine,Hum.rec.anlog [Lantus Solostar Pen] 25 units SQ DAILY #1 each 12/25/22 [Rx] Insulin Lispro [humaLOG Kwikpen] 5 unit SQ TID-W/MEALS 30 Days #1 each 12/25/22 [Rx] Follow up Appointment(s)/Referral(s): [facility] Silvia kate [NON-STAFF] - 1 Week Patient Instructions/Handouts: Diabetic Ketoacidosis (DC) Discharge Disposition: HOME SELF-CARE
== END 2022-12-25 12:13 | disposition home or self-care (01) | DRG 420 ==
LOC: EC 05:56 → 3SCARD 08:07
PROVIDERS: ADMIT Student in an Organized Health Care Education/Training Program; ATTEND Student in an Organized Health Care Education/Training Program
DX: E10.10 Type 1 diabetes mellitus with ketoacidosis without coma (principal); F17.210 Nicotine dependence, cigarettes, uncomplicated; T38.3X6A Underdosing of insulin and oral hypoglycemic [antidiabetic] drugs, initial encounter; R00.0 Tachycardia, unspecified; Z91.120 Patient's intentional underdosing of medication regimen due to financial hardship
CPT/HCPCS: 36415; 80048; 80051; 80053; 81001; 81025; 82009; 82565; 82803; 82947; 83605; 83735; 84100; 84443; 84520; 85025; 87086; 93005; 96361; 96365; 96366; 96375; 99285

== ENCOUNTER 2024-05-15 09:24 | Emergency (ER) | payer OTHER ==
[2024-05-15 09:29] LABS: Glucose,Whole Blood 438 mg/dL (70-110)
[2024-05-15 10:11] LABS: Basophils # (A) 0.1 k/uL (0-0.2); Basophils % (A) 1 %; Eosinophils # (A) 0.3 k/uL (0-0.7); Eosinophils % (A) 2 %; HCT 38.5 % (34.0-46.0); Lymphocytes # (A) 1.8 k/uL (1.0-4.8); Lymphocytes % (A) 15 %; MCH 28.4 pg (25.0-35.0); MCHC 31.3 g/dL (31.0-37.0); MCV 90.6 fL (80.0-100.0); Mean Platelet Volume 7.9; Monocytes # (A) 0.4 k/uL (0-1.0); Monocytes % (A) 3 %; Neutrophils # (A) 9.1 k/uL (1.3-7.7); Neutrophils % (A) 77 %; Platelet Count 402 k/uL (150-450); RBC 4.25 m/uL (3.80-5.40); RDW 13.5 % (11.5-15.5); WBC 11.8 k/uL (3.8-10.6)
[2024-05-15 10:12] LABS: VBG PH 7.34 (7.31-7.41)
[2024-05-15] MEDS: SODIUM CHLORIDE 0.9% 2,000 ML IV STA (10:12)
[2024-05-15 10:21] LABS: Amorphous Sediment,Urine Occasional /hpf; Appearance,Urine Cloudy (Clear); Bacteria,Urine Rare /hpf; Bilirubin,Urine Negative (Negative); Blood,Urine Negative (Negative); Color,Urine Colorless; Glucose,Urine (UA) 4+ (Negative); Leukocyte Esterase,Urine Large (Negative); Nitrite,Urine Negative (Negative); Protein,Urine Negative (Negative); RBC,Urine 2 /hpf (0-5); Specific Gravity,Urine 1.024 (1.001-1.035); Squamous Epithelial Cell,Urine 5 /hpf (0-4); Urobilinogen,Urine <2.0 mg/dL (<2.0); WBC,Urine 23 /hpf (0-5)
[2024-05-15 10:22] LABS: ALT 22 U/L (4-34); AST 20 U/L (14-36); African American GFR (CKD) 65 (>60 ml/min/1.73 sqM); Alkaline Phosphatase 117 U/L (38-126); Anion Gap 14 mmol/L; Blood Urea Nitrogen 27 mg/dL (7-17); Calcium 8.9 mg/dL (8.4-10.2); Carbon Dioxide 19 mmol/L (22-30); Chloride 100 mmol/L (98-107); Lipase 196 U/L (23-300); Magnesium 1.7 mg/dL (1.6-2.3); Non-African American GFR(CKD) 56 (>60 ml/min/1.73 sqM); Potassium 5.9 mmol/L (3.5-5.1); Sodium 133 mmol/L (137-145); Total Bilirubin 0.5 mg/dL (0.2-1.3); Total Protein 6.7 g/dL (6.3-8.2)
[2024-05-15] MEDS: INSULIN REGULAR 100 UNIT/ML VIAL (IV) IV ONE ×2 (10:29→11:17)
[2024-05-15] MEDS: ONDANSETRON 4 MG/2 ML VIAL IVP STA (10:30)
[2024-05-15 10:35] LABS: Ketones,Urine 2+ (Negative)
[2024-05-15 10:55] LABS: Glucose 502 mg/dL (74-99)
[2024-05-15 11:07] LABS: Glucose,Whole Blood 381 mg/dL (70-110)
[2024-05-15 11:13] VITALS: PULSE 91; RESP 18
[2024-05-15] MEDS: cefTRIAXone IN SWFI 1,000 MG/10 ML SYRINGE IVP STA (11:19)
--- NOTE | 2024-05-15 12:01 | ED ---
General Adult HPI - General Chief complaint: Recheck/Abnormal Lab/Rx Stated complaint: high blood sugar/needs meds Time Seen by Provider: 05/15/24 09:28 Source: patient, RN notes reviewed Mode of arrival: ambulatory Limitations: no limitations - History of Present Illness Initial comments: 24-year-old female presents emergency department with chief complaint of hyperglycemia, needing medications. Patient states has been have insurance issues regarding her diabetic medications. Patient states she does not have any of her short acting or long-acting her blood sugar was over 400. She has mental nausea, vomiting no other complaints. - Related Data Previous Rx's Medication Instructions Recorded Acetaminophen Tab [Tylenol] 650 mg PO Q6HR PRN tab 12/25/22 Insulin Glargine,Hum.rec.anlog 25 units SQ DAILY #1 each 12/25/22 [Lantus Solostar Pen] Insulin Lispro [humaLOG Kwikpen] 5 unit SQ TID-W/MEALS 30 Days #1 12/25/22 each Cephalexin [Keflex] 500 mg PO Q8HR #21 cap 05/15/24 Insulin Regular, Human [NovoLIN R] 2 - 12 units SQ ACHS #20 ml 05/15/24 Allergies Allergy/AdvReac Type Severity Reaction Status Date / Time No Known Allergies Allergy Verified 05/15/24 09:28 Review of Systems ROS Statement: Those systems with pertinent positive or pertinent negative responses have been documented in the HPI. ROS Other: All systems not noted in ROS Statement are negative. Past Medical History Past Medical History: Diabetes Mellitus History of Any Multi-Drug Resistant Organisms: None Reported Additional Past Surgical History / Comment(s): Facial reconstruction Past Anesthesia/Blood Transfusion Reactions: No Reported Reaction Past Psychological History: No Psychological Hx Reported, Schizoaffective Disorder Smoking Status: Former smoker Past Alcohol Use History: None Reported Past Drug Use History: Marijuana General Exam Limitations: no limitations General appearance: alert, in no apparent distress Head exam: Present: atraumatic, normocephalic, normal inspection Eye exam: Present: normal appearance, PERRL, EOMI. Absent: scleral icterus, conjunctival injection, periorbital swelling ENT exam: Present: normal exam, mucous membranes moist Neck exam: Present: normal inspection, full ROM. Absent: tenderness, meningismus, lymphadenopathy Respiratory exam: Present: normal lung sounds bilaterally. Absent: respiratory distress, wheezes, rales, rhonchi, stridor Cardiovascular Exam: Present: normal rhythm, tachycardia, normal heart sounds. Absent: systolic murmur, diastolic murmur, rubs, gallop, clicks GI/Abdominal exam: Present: soft, normal bowel sounds. Absent: distended, tenderness, guarding, rebound, rigid Course Vital Signs 05/15/24 05/15/24 09:25 11:00 Temperature 97.5 F L 98.1 F Pulse Rate 105 H 91 Respiratory 20 18 Rate Blood Pressure 112/69 109/71 O2 Sat by Pulse 98 99 Oximetry Medical Decision Making - Medical Decision Making Was pt. sent in by a medical professional or institution (, PA, PROVINCE ARCHIVIST, urgent care, hospital, or senior living...) When possible be specific @ -No Did you speak to anyone other than the patient for history (EMS, parent, family, police, friend...)? What history was obtained from this source @ -No Did you review nursing and triage notes (agree or disagree)? Why? @ -I reviewed and agree with nursing and triage notes Were old charts reviewed (outside hosp., previous admission, EMS record, old EKG, old radiological studies, urgent care reports/EKG's, senior living records)? Report findings @ -No old charts were reviewed Differential Diagnosis (chest pain, altered mental status, abdominal pain women, abdominal pain men, vaginal bleeding, weakness, fever, dyspnea, syncope, headache, dizziness, GI bleed, back pain, seizure, CVA, palpatations, mental health, musculoskeletal)? @ -Differential Abdominal Pain Women: Appendicitis, Cholecystitis, diverticulosis, ischemic bowel, pancreatitis, hepatitis, UTI, gastroenteritis, AAA, incarcerated hernia, bowel obstruction, constipation, inflammatory bowel, hepatitis, peptic ulcer disease, splenic infarction, perforated viscus, vulvitis, ovarian torsion, PID, kidney stone, placenta abruption, this is not meant to be an all-inclusive list EKG interpreted by me (3pts min.). @ -none X-rays interpreted by me (1pt min.). @ -None done CT interpreted by me (1pt min.). @ -None done U/S interpreted by me (1pt. min.). @ -None done What testing was considered but not performed or refused? (CT, X-rays, U/S, labs)? Why? @ -None What meds were considered but not given or refused? Why? @ -None Did you discuss the management of the patient with other professionals (professionals i.e. , PA, PROVINCE ARCHIVIST, lab, RT, psych nurse, social insurance specialist, ledger poster, teacher, chief clinical officer, case sealer)? Give summary @ -No Was smoking cessation discussed for >3mins.? @ -No Was critical care preformed (if so, how long)? @ -No Were there social determinants of health that impacted care today? How? (Homelessness, low income, unemployed, alcoholism, drug addiction, transportation, low edu. Level, literacy, decrease access to med. care, fpc, rehab)? @ -No Was there de-escalation of care discussed even if they declined (Discuss DNR or withdrawal of care, Hospice)? DNR status @ -No What co-morbidities impacted this encounter? (DM, HTN, Smoking, COPD, CAD, Cancer, CVA, ARF, Chemo, Hep., AIDS, mental health diagnosis, sleep apnea, morbid obesity)? @ -Diabetes Was patient admitted / discharged? Hospital course, mention meds given and route, prescriptions, significant lab abnormalities, going to OR and other pertinent info. @ -[Charge patient feels greatly improved this time we are able to obtain insulin at the pharmacy for patient. Patient was hydrated, given insulin here blood sugars improved she does have evidence of UTI discharged on oral antibiotics, insulin return for as discussed. Undiagnosed new problem with uncertain prognosis? @ -No Drug Therapy requiring intensive monitoring for toxicity (Heparin, Nitro, Insulin, Cardizem)? @ -No Were any procedures done? @ -No Diagnosis/symptom? @ -Hyperglycemia, diabetes, UTI Acute, or Chronic, or Acute on Chronic? @ -Acute Uncomplicated (without systemic symptoms) or Complicated (systemic symptoms)? @ -Complicated Side effects of treatment? @ -No Exacerbation, Progression, or Severe Exacerbation? @ -No Poses a threat to life or bodily function? How? (Chest pain, USA, DC, pneumonia, PE, COPD, DKA, ARF, appy, cholecystitis, CVA, Diverticulitis, Homicidal, Suicidal, threat to staff... and all critical care pts) @ -No - Lab Data Result diagrams: 05/15/24 09:49 05/15/24 09:49 Lab Results 05/15/24 05/15/24 05/15/24 Range/Units 09:28 09:49 09:49 WBC 11.8 H (3.8-10.6) k/uL RBC 4.25 (3.80-5.40) m/uL Hgb 12.0 (11.4-16.0) gm/dL Hct 38.5 (34.0-46.0) % MCV 90.6 (80.0-100.0) fL MCH 28.4 (25.0-35.0) pg MCHC 31.3 (31.0-37.0) g/dL RDW 13.5 (11.5-15.5) % Plt Count 402 (150-450) k/uL MPV 7.9 Neutrophils % 77 % Lymphocytes % 15 % Monocytes % 3 % Eosinophils % 2 % Basophils % 1 % Neutrophils # 9.1 H (1.3-7.7) k/uL Lymphocytes # 1.8 (1.0-4.8) k/uL Monocytes # 0.4 (0-1.0) k/uL Eosinophils # 0.3 (0-0.7) k/uL Basophils # 0.1 (0-0.2) k/uL VBG pH (7.31-7.41) VBG pCO2 (37-51) mmHg VBG HCO3 (24-28) mmol/L Sodium (137-145) mmol/L Potassium (3.5-5.1) mmol/L Chloride (98-107) mmol/L Carbon Dioxide (22-30) mmol/L Anion Gap mmol/L BUN (7-17) mg/dL Creatinine (0.52-1.04) mg/dL Est GFR (CKD-EPI)AfAm (>60 ml/min/1.73 sqM) Est GFR (CKD-EPI)NonAf (>60 ml/min/1.73 sqM) Glucose (74-99) mg/dL POC Glucose (mg/dL) 438 H (70-110) mg/dL POC Glu Heat [employer] Vent Aircraft Mechanic ID Ngoc Lema Plasma Lactic Acid Kale (0.7-2.0) mmol/L Calcium (8.4-10.2) mg/dL Magnesium (1.6-2.3) mg/dL Total Bilirubin (0.2-1.3) mg/dL AST (14-36) U/L ALT (4-34) U/L Alkaline Phosphatase (38-126) U/L Total Protein (6.3-8.2) g/dL Albumin (3.5-5.0) g/dL Lipase (23-300) U/L Urine Color Colorless Urine Appearance Cloudy H (Clear) Urine pH 7.0 (5.0-8.0) Ur Specific [place] 1.024 (1.001-1.035) Urine Protein Negative (Negative) Urine Glucose (UA) 4+ H (Negative) Urine Ketones 2+ H (Negative) Urine Blood Negative (Negative) Urine Nitrite Negative (Negative) Urine Bilirubin Negative (Negative) Urine Urobilinogen <2.0 (<2.0) mg/dL Ur Leukocyte Esterase Large H (Negative) Urine RBC 2 (0-5) /hpf Urine WBC 23 H (0-5) /hpf Ur Squamous Epith Cells 5 H (0-4) /hpf Amorphous Sediment Occasional H (None) /hpf Urine Bacteria Rare H (None) /hpf 05/15/24 05/15/24 05/15/24 Range/Units 09:49 09:49 09:49 WBC (3.8-10.6) k/uL RBC (3.80-5.40) m/uL Hgb (11.4-16.0) gm/dL Hct (34.0-46.0) % MCV (80.0-100.0) fL MCH (25.0-35.0) pg MCHC (31.0-37.0) g/dL RDW (11.5-15.5) % Plt Count (150-450) k/uL MPV Neutrophils % % Lymphocytes % % Monocytes % % Eosinophils % % Basophils % % Neutrophils # (1.3-7.7) k/uL Lymphocytes # (1.0-4.8) k/uL Monocytes # (0-1.0) k/uL Eosinophils # (0-0.7) k/uL Basophils # (0-0.2) k/uL VBG pH 7.34 (7.31-7.41) VBG pCO2 37 (37-51) mmHg VBG HCO3 20 L (24-28) mmol/L Sodium 133 L (137-145) mmol/L Potassium 5.9 H (3.5-5.1) mmol/L Chloride 100 (98-107) mmol/L Carbon Dioxide 19 L (22-30) mmol/L Anion Gap 14 mmol/L BUN 27 H (7-17) mg/dL Creatinine 1.33 H (0.52-1.04) mg/dL Est GFR (CKD-EPI)AfAm 65 (>60 ml/min/1.73 sqM) Est GFR (CKD-EPI)NonAf 56 (>60 ml/min/1.73 sqM) Glucose 502 H* (74-99) mg/dL POC Glucose (mg/dL) (70-110) mg/dL POC Glu Heat [employer] Aircraft Mechanic ID Plasma Lactic Acid Kale 0.9 (0.7-2.0) mmol/L Calcium 8.9 (8.4-10.2) mg/dL Magnesium 1.7 (1.6-2.3) mg/dL Total Bilirubin 0.5 (0.2-1.3) mg/dL AST 20 (14-36) U/L ALT 22 (4-34) U/L Alkaline Phosphatase 117 (38-126) U/L Total Protein 6.7 (6.3-8.2) g/dL Albumin 4.0 (3.5-5.0) g/dL Lipase 196 (23-300) U/L Urine Color Urine Appearance (Clear) Urine pH (5.0-8.0) Ur Specific [place] (1.001-1.035) Urine Protein (Negative) Urine Glucose (UA) (Negative) Urine Ketones (Negative) Urine Blood (Negative) Urine Nitrite (Negative) Urine Bilirubin (Negative) Urine Urobilinogen (<2.0) mg/dL Ur Leukocyte Esterase (Negative) Urine RBC (0-5) /hpf Urine WBC (0-5) /hpf Ur Squamous Epith Cells (0-4) /hpf Amorphous Sediment (None) /hpf Urine Bacteria (None) /hpf 05/15/24 Range/Units 11:05 WBC (3.8-10.6) k/uL RBC (3.80-5.40) m/uL Hgb (11.4-16.0) gm/dL Hct (34.0-46.0) % MCV (80.0-100.0) fL MCH (25.0-35.0) pg MCHC (31.0-37.0) g/dL RDW (11.5-15.5) % Plt Count (150-450) k/uL MPV Neutrophils % % Lymphocytes % % Monocytes % % Eosinophils % % Basophils % % Neutrophils # (1.3-7.7) k/uL Lymphocytes # (1.0-4.8) k/uL Monocytes # (0-1.0) k/uL Eosinophils # (0-0.7) k/uL Basophils # (0-0.2) k/uL VBG pH (7.31-7.41) VBG pCO2 (37-51) mmHg VBG HCO3 (24-28) mmol/L Sodium (137-145) mmol/L Potassium (3.5-5.1) mmol/L Chloride (98-107) mmol/L Carbon Dioxide (22-30) mmol/L Anion Gap mmol/L BUN (7-17) mg/dL Creatinine (0.52-1.04) mg/dL Est GFR (CKD-EPI)AfAm (>60 ml/min/1.73 sqM) Est GFR (CKD-EPI)NonAf (>60 ml/min/1.73 sqM) Glucose (74-99) mg/dL POC Glucose (mg/dL) 381 H (70-110) mg/dL POC Glu Heat [employer] Vent Aircraft Mechanic ID Radha Holguin Plasma Lactic Acid Kale (0.7-2.0) mmol/L Calcium (8.4-10.2) mg/dL Magnesium (1.6-2.3) mg/dL Total Bilirubin (0.2-1.3) mg/dL AST (14-36) U/L ALT (4-34) U/L Alkaline Phosphatase (38-126) U/L Total Protein (6.3-8.2) g/dL Albumin (3.5-5.0) g/dL Lipase (23-300) U/L Urine Color Urine Appearance (Clear) Urine pH (5.0-8.0) Ur Specific [place] (1.001-1.035) Urine Protein (Negative) Urine Glucose (UA) (Negative) Urine Ketones (Negative) Urine Blood (Negative) Urine Nitrite (Negative) Urine Bilirubin (Negative) Urine Urobilinogen (<2.0) mg/dL Ur Leukocyte Esterase (Negative) Urine RBC (0-5) /hpf Urine WBC (0-5) /hpf Ur Squamous Epith Cells (0-4) /hpf Amorphous Sediment (None) /hpf Urine Bacteria (None) /hpf Disposition Clinical Impression: Nausea and vomiting, UTI (urinary tract infection), Hyperglycemia Disposition: HOME SELF-CARE Condition: Stable Instructions (If sedation given, give patient instructions): Diabetic Hyperglycemia (ED) Additional Instructions: Please return to the Emergency Department if symptoms worsen or any other concerns. Prescriptions: Cephalexin [Keflex] 500 mg PO Q8HR #21 cap Insulin Regular, Human [NovoLIN R] 2 - 12 units SQ ACHS #20 ml Is patient prescribed a controlled substance at d/c from ED?: No Referrals: Nonstaff,Physician [Primary Care Provider] - 06/06/24 2:30 pm (With Dr Guillermo Juan on [address] phone: [phone]) Time of Disposition: 12:00
[2024-05-15 12:07] VITALS: BP 100/66; TEMP 97.6
[2024-05-15 12:34] LABS: Glucose,Whole Blood 184 mg/dL (70-110)
== END 2024-05-15 12:34 | disposition home or self-care (01) ==
LOC: EC 09:24
DX: N39.0 Urinary tract infection, site not specified (principal); E11.65 Type 2 diabetes mellitus with hyperglycemia; Z79.4 Long term (current) use of insulin; Z87.891 Personal history of nicotine dependence
CPT/HCPCS: 36415; 80053; 82803; 83605; 83690; 83735; 85025; 81001; 99285; 96374; 96375; 96361; J2405; J0696